=== PATIENT | female | born 1935 | race Caucasian/White ===

== ENCOUNTER 2019-06-08 16:39 | Emergency (ER) | payer MEDICARE, OTHER ==
--- NOTE | 2019-06-08 16:46 | EDM.PDOC ---
ED HPI GENERAL MEDICAL PROBLEM - General Chief Complaint: Lower Extremity Injury/Pain Stated Complaint: fall, knee pain Time Seen by Provider: 06/08/19 16:40 Source of Information: Reports: Patient, Old Records ([facility] chart/EMR) History Limitations: Reports: No Limitations - History of Present Illness INITIAL COMMENTS - FREE TEXT/NARRATIVE: The patient was brought to the emergency room via private automobile by her and daughter for evaluation of bilateral knee pain resulting from a minor fall in front of her grandson's house at about 14:30 hours this afternoon. The patient fell off the last step on the front porch onto a cement driveway resulting in abrasions of both her knees and 7/10 mostly right knee pain with no medications or treatment to this point. She has not injured this knee in the past. The patient denies any chest pain/pressure, heart flutter, dizziness, orthostasis, orthopnea, diaphoresis, paresthesias, recent decreased exercise tolerance, or any other anginal-type symptoms. No recent history of abdominal pain, heartburn, nausea, diarrhea, melena, gross hematochezia, or any food intolerance, including fatty foods, etc.. The patient also denies any recent fever, cough, wheezing, dyspnea, etc.. She denies any head injury, loss of consciousness, change in mental status, neck/back pain, paresthesias, neurological deficits, or other complaints or injuries. Onset: Today, Sudden Onset Date: 06/08/19 Onset Time: 14:30 Duration: Constant Location: Reports: Lower Extremity, Right. Denies: Head, Face, Neck, Chest, Abdomen, Back, Pelvis, Upper Extremity, Left, Upper Extremity, Right, Radiates to Quality: Reports: Same as Previous Episode, Sharp, Throbbing Severity: Moderate Improves with: Reports: Rest Worsens with: Reports: Movement (Weightbearing with no instability) Context: Reports: Trauma (As above) Associated Symptoms: Denies: Confusion, Chest Pain, Cough, Diaphoresis, Fever/ Chills, Headaches, Loss of Appetite, Malaise, Nausea/Vomiting, Seizure, Shortness of Breath, Syncope, Weakness Treatments TRANSPORTATION ANALYST: Reports: Other (see below) (None) Right Knee Pain Score (Numeric/FACES): 7 - Related Data Allergies Allergy/AdvReac Type Severity Reaction Status Date / Time Penicillins Allergy Syncope Verified 06/08/19 16:49 Home Meds: Home Meds Aspirin [Halfprin] 81 mg PO DAILY #0 07/09/14 [Rx] Multivit with Calcium,Iron,Min [Essential Daily] 1 each PO DAILY 07/09/14 [ History] Liberty-3/DHA/Epa/Fish Oil [Fish Oil 1,000 mg Softgel] 1 cap PO DAILY 07/09/14 [ History] Simvastatin 20 mg PO BEDTIME 07/09/14 [History] Glucosamine/Chondroitin/C/Pedro [Glucosamine Chondroitin Caplet] 1 each PO DAILY PRN 11/17/14 [History] Docusate Sodium 100 mg PO DAILY PRN 06/06/15 [History] Non-Formulary Medication [NF Drug] 1 tab PO DAILY 06/08/19 [History] cloNIDine [Catapres] 0.1 mg PO BID 06/08/19 [History] Past Medical History HEENT History: Reports: Allergic Rhinitis, Cataract, Glaucoma, Impaired Vision, Other (See Below). Denies: Hard of Hearing, Macular Degeneration, Otitis Media , Retinal Detachment Other HEENT History: No medications required for her allergic rhinitis. A, resolved with previous laser treatments at time of cataract surgery as below. Patient does wear glasses. Cardiovascular History: Reports: Arrhythmia, Heart Failure, High Cholesterol, Hypertension, Syncope, Other (See Below) Other Cardiovascular History: Borderline incomplete right bundle branch block, PVCs, and PVCs. Syncope in February 2014. Respiratory History: Reports: Bronchitis, Recurrent, COPD, Intubation, Previous , Other (See Below). Denies: Intubation, Difficult, PE, Pneumonia, Recurrent, Pneumothorax, Sleep Apnea, TB Other Respiratory History: Stable pulmonary nodules by CT scan. Gastrointestinal History: Reports: Chronic Constipation, GERD, Hiatal Hernia, Other (See Below). Denies: Celiac Disease, GI Bleed, Hepatitis, Inflammatory Bowel Disease, Irritable Bowel Syndrome, Jaundice, Pancreatitis Other Gastrointestinal History: Large hiatal hernia by CT scan. Genitourinary History: Reports: Urinary Incontinence, Other (See Below). Denies : Acute Renal Failure, Chronic Renal Insuffiency, UTI, Recurrent Other Genitourinary History: Overactive bladder DOT ETCHER APPRENTICE History: Reports: : 6 Para: 5 LMP (Approximate): Other (See Below) Other DOT ETCHER APPRENTICE History: Menopause in her early 40s. Full term without complications during pregnancies or deliveries with exception of one full-term stillborn. Musculoskeletal History: Reports: Arthritis, Back Pain, Chronic, Fracture, Neck Pain, Chronic, Osteoarthritis, Osteoporosis, Other (See Below). Denies: Gout, RA, SLE Other Musculoskeletal History: Right wrist fracture in her 30s. Neurological History: Reports: None Psychiatric History: Reports: None Endocrine/Metabolic History: Reports: Hypokalemia Hematologic History: Reports: None. Denies: Blood Transfusion(s) Immunologic History: Reports: None Oncologic (Cancer) History: Reports: None Dermatologic History: Reports: None - Infectious Disease History Infectious Disease History: Reports: Chicken Pox, Measles, Mumps. Denies: Shingles - Past Surgical History Head Surgeries/Procedures: Reports: None HEENT Surgical History: Reports: Cataract Surgery, Other (See Below) Other HEENT Surgeries/Procedures: Bilateral cataract surgery in 2001 with concomitant laser treatments for her glaucoma. My molar in the with additional multiple teeth extractions and implants. GI Surgical History: Reports: Colonoscopy, EGD, Other (See Below) Other GI Surgeries/Procedures: Last colonoscopy on 11/18/14 with previous colonoscopy in 2004. EGD in 2009. Female Surgical History: Reports: Tubal Ligation, Other (See Below) Other Female Surgeries/Procedures: Tubal ligation at age 46. Endometrial biopsy at about age 41. Musculoskeletal Surgical History: Reports: Shoulder Surgery Other Musculoskeletal Surgeries/Procedures:: Right foot bunionectomy with concomitant fourth and fifth hammertoe revision on 09/10/02. Left rotator cuff repair in 2005. - Past Imaging History Past Imaging History: Reports: Cardiac Echo (07/20/14 with ejection fraction of 6065 percent.), CAT Scan (CT of the brain on 05/17/15 and 03/29/14. CT of the chest with IV contrast on 04/19/16 and 11/12/14. Previous serial CTs of the chest on 06/30/13, 06/25/08, etc.), DEXA Scan (10/11/14), Mammogram (Last on 12/24/18.), MRA (MRA/MRI of the head and neck on 06/06/15.), MRI (Right shoulder on 12/17/16. ), Stress Testing (Negative Cardiolite stress test on 05/26/15 with ejection fraction of 90%. Previous Cardiolite stress test on 03/11/08 with ejection fraction of 61%.) Social & Family History - Tobacco Use Smoking Status *Q: Never Smoker Tobacco Use Within Last Twelve Months: No Used Tobacco, but Quit: No Smoking Cessation Information Provided To Patient: No Second Hand Smoke Exposure: No Second Hand Smoke Education Provided: No - Caffeine Use Caffeine Use: Reports: Coffee (12 cups per day), Tea (Occasional) - Living Situation & Occupation Living situation: Reports: ([birth year], 5 children), with Family Occupation: Retired (From the [employer]) Review of Systems - Review of Systems Review Of Systems: Comprehensive ROS is negative, except as noted in HPI. ED EXAM, GENERAL - Physical Exam Exam: See Below Exam Limited By: No Limitations General Appearance: Alert, WD/WN, Moderate Distress Eye Exam: Bilateral Eye: EOMI, Normal Inspection (No nystagmus. Patient wearing glasses), PERRL Ears: Normal External Exam, Normal Canal, Hearing Grossly Normal, Normal TMs Nose: Normal Inspection, Normal Mucosa, No Blood Throat/Mouth: Normal Inspection, Normal Lips, Normal Teeth, Normal Gums, Normal Oropharynx, Normal Voice, No Airway Compromise. No: Dysphagia, Perioral Cyanosis Head: Atraumatic, Normocephalic. No: Facial Swelling, Facial Tenderness, Sinus Tenderness Neck: Supple, Non-Tender, Full Range of Motion, Carotid Bruit (Mild bilateral carotid bruits). No: Lymphadenopathy (L), Lymphadenopathy (R), Thyromegaly Respiratory/Chest: No Respiratory Distress, Lungs Clear, Normal Breath Sounds, No Accessory Muscle Use, Chest Non-Tender. No: Pleural Rub, Retractions Cardiovascular: Normal Peripheral Pulses, Regular Rate, Rhythm, No Edema, No Gallop, No JVD, No Murmur, No Rub. No: Gallop/S3, Gallop/S4, Friction Rub Peripheral Pulses: 3+: Radial (L), Radial (R), Dorsalis Pedis (L), Dorsalis Pedis (R) GI/Abdominal: Normal Bowel Sounds, Soft, Non-Tender, No Organomegaly, No Distention, No Abnormal Bruit, No Mass, Pelvis Stable. No: Guarding (Female) Exam: Deferred Rectal (Female) Exam: Deferred Back Exam: Normal Inspection, Full Range of Motion. No: CVA Tenderness (L), CVA Tenderness (R), Muscle Spasm Extremities: No Pedal Edema, Leg Pain (Right knee as above), Limited Range of Motion (Mild and right knee secondary to discomfort), Other (Mild bilateral knee abrasions with mild ecchymosis over the patellar regions bilaterally left greater than right. Moderate varicose veins of the lower extremities). No: Non- Tender (Mild localized palpation pain over the right patellar region with no evidence deformity, crepitation, instability, effusion, etc.), Pedal Edema, Joint Swelling, Oscar's Sign Neurological: Alert, Oriented, CN II-XII Intact, Normal Cognition, Normal Gait, Normal Reflexes, No Motor/Sensory Deficits Psychiatric: Normal Affect, Normal Mood Skin Exam: Ecchymosis, Wound/Incision (As above). No: Diaphoretic, Petechiae Lymphatic: No Adenopathy Course - Vital Signs Last Recorded V/S: Last Vital Signs Temp 36.6 C 06/08/19 16:43 Pulse 60 06/08/19 16:43 Resp 17 06/08/19 16:43 BP 195/74 H 06/08/19 18:01 Pulse Ox 100 06/08/19 16:43 Vital Signs - 24 hr 06/08/19 06/08/19 06/08/19 16:43 16:59 18:01 Temperature [ 36.6 C Temporal] Pulse, 60 Peripheral [ Left Pulse Oximetry] Respiratory 17 Rate Blood Pressure 204/96 H 195/74 H [Left Upper Arm ] O2 Sat by Pulse 100 Oximetry - Orders/Labs/Meds Orders: Active Orders 24 hr Category Date Time Status Knee 3V Rt [CR] Stat Exams 06/08/19 16:46 Taken Obtain Past Medical Record [OM.PC] Routine Oth 06/08/19 16:46 Active Labs: None Meds: Medications Discontinued Medications Generic Name Dose Route Start Last Admin Trade Name Freq PRN Reason Stop Dose Admin Neomycin/Polymyxin/Bacitracin 1 each 06/08/19 17:31 06/08/19 17:42 Triple Antibiotic Oint TOP 06/08/19 17:32 1 each ONETIME ONE Administration - Radiology Interpretation Free Text/Narrative:: X-rays of the right knee showed a hairline horizontal nondisplaced fracture of the patella with moderate osteoarthritic changes but no dislocation, etc. Departure - Departure Time of Disposition: 18:20 Disposition: Home, Self-Care 01 Condition: Good Clinical Impression: Multiple abrasions, Peptic reflux disease, Heart disease COPD (chronic obstructive pulmonary disease) Qualifiers: COPD type: emphysema Emphysema type: panlobular Qualified Code(s): J43.1 - Panlobular emphysema Hypertension Qualifiers: Hypertension type: essential hypertension Qualified Code(s): I10 - Essential ( primary) hypertension Osteoarthritis Qualifiers: Osteoarthritis location: multiple joints Osteoarthritis type: primary Qualified Code(s): M89.49 - Other hypertrophic osteoarthropathy, multiple sites Right patella fracture Qualifiers: Encounter type: initial encounter Fracture type: closed Fracture morphology: transverse Fracture alignment: nondisplaced Qualified Code(s): S82.034A - Nondisplaced transverse fracture of right patella, initial encounter for closed fracture - Discharge Information *PRESCRIPTION DRUG MONITORING PROGRAM REVIEWED*: Not Applicable *COPY OF PRESCRIPTION DRUG MONITORING REPORT IN PATIENT BIENVENIDO: Not Applicable Instructions: Abrasion, [id number], Patellar Fracture, Adult Referrals: Margarita Isaac PA [Primary Care Provider] - Forms: ED Department Discharge Additional Instructions: 1. Follow up with your regular provider in 7 days for reevaluation and recommended repeat x-rays of the right knee. Bring these discharge instructions with you to that visit.. 2. Tylenol 650 mg by mouth every 4 hours and/or OTC ibuprofen 2-3 tabs by mouth every 6 hours with food as directed./needed. You may stagger these medications for 48-72 hours only, which essentially means that you are receiving a pain medication about every 2 hours. 3. Antibacterial soap wash/soak with subsequent antibacterial dressing such as Neosporin, etc. as directed 2 times per day until the wound or laceration site completely heals. Keep the area clean and dry with activity restrictions as discussed. Never use hydrogen peroxide for wound care. 4. Limited weightbearing on your right leg with activity restrictions and continuation of previous fall precautions as discussed. 5. BenGay or equivalent, heating pad, and/or ice packs as directed. 6. Use knee brace/sleep on a continuous basis with exception of wound care as above and/or bathing until otherwise directed by your regular provider. Echo therapy from our facility will bring you a more extensive leg/knee immobilizer and a walker tomorrow. 7. Immediately after this visit verify that your cellular telephone's voicemail has been activated and is empty. Also verify that your home telephone 's answering machine is operating properly and has space to receive messages. Note that it is sometimes necessary for us to be able to contact you at a later date to discuss your medical care. 8. Please remember that we are ALWAYS here for you and want to answer any questions you may have. Feel free to call the hospital any time and we call you back PATY. 9. Continue to observe your blood pressures closely through your regular provider. Sepsis Event Note - Focused Exam Vital Signs: Vital Signs Temp Pulse Resp BP Pulse Ox 06/08/19 18:01 195/74 H 06/08/19 16:59 204/96 H 06/08/19 16:43 36.6 C 60 17 100 Date Exam was Performed: 06/08/19 Time Exam was Performed: 20:31 - Problem List & Annotations (1) Right patella fracture SNOMED Code(s): 56501542 Code(s): S82.001A - UNSP FRACTURE OF RIGHT PATELLA, INIT FOR CLOS FX Status : Acute Priority: High Onset Date: 06/08/19 Annotation/Comment:: Patient was placed in a knee sleeve with knee immobilizer not able to be found in this facility this evening. I did leave orders with physical therapy to deliver a proper knee/leg immobilizer and a walker to the patient's home tomorrow. Activity restrictions, etc. were extensively discussed. Close follow-up by regular provider as per discharge instructions. Orthopedic consultation, MRI of the knee, etc. depending on her clinical course. Qualifiers: Encounter type: initial encounter Fracture type: closed Fracture morphology: transverse Fracture alignment: nondisplaced Qualified Code(s): S82.034A - Nondisplaced transverse fracture of right patella, initial encounter for closed fracture (2) Multiple abrasions SNOMED Code(s): 340262109, 107131306 Code(s): T07.XXXA - UNSPECIFIED MULTIPLE INJURIES, INITIAL ENCOUNTER Status : Acute Priority: High Onset Date: 06/08/19 Annotation/Comment:: Minor superficial abrasions of the prepatellar regions bilaterally as above. No evidence of foreign body, need for laceration repair, etc. Wound care instructions given. (3) COPD (chronic obstructive pulmonary disease) SNOMED Code(s): 01326799 Code(s): J44.9 - CHRONIC OBSTRUCTIVE PULMONARY DISEASE, UNSPECIFIED Status : Chronic Priority: Medium Annotation/Comment:: No current bronchitic-type symptoms, fever, etc.. Patient does not require medications for her COPD currently. Consider PFTs in the future as needed. Qualifiers: COPD type: emphysema Emphysema type: panlobular Qualified Code(s): J43.1 - Panlobular emphysema (4) Heart disease SNOMED Code(s): 32388465 Code(s): I51.9 - HEART DISEASE, UNSPECIFIED Status: Chronic Priority: High Annotation/Comment:: No chest pain or anginal-type symptoms. Note previous history of CHF, cardiac arrhythmia, hyperlipidemia, and nonspecific syncopal episode in February 2014. (5) Hypertension SNOMED Code(s): 59041140 Code(s): I10 - ESSENTIAL (PRIMARY) HYPERTENSION Status: Chronic Priority : High Annotation/Comment:: Blood pressure somewhat elevated initially in the emergency room with recent adjustment of patient's medications about one week ago by patient history. Continue close followup with her regular provider as per discharge instructions. Qualifiers: Hypertension type: essential hypertension Qualified Code(s): I10 - Essential (primary) hypertension (6) Osteoarthritis SNOMED Code(s): 593119558 Code(s): M19.90 - UNSPECIFIED OSTEOARTHRITIS, UNSPECIFIED SITE Status: Chronic Priority: Medium Annotation/Comment:: Otherwise stable by history with no history of other injury and only occasional NSAID use. Qualifiers: Osteoarthritis location: multiple joints Osteoarthritis type: primary Qualified Code(s): M89.49 - Other hypertrophic osteoarthropathy, multiple sites (7) Peptic reflux disease SNOMED Code(s): 959915654 Code(s): K21.9 - GASTRO-ESOPHAGEAL REFLUX DISEASE WITHOUT ESOPHAGITIS Status: Chronic Priority: Medium Annotation/Comment:: Stable by patient history - Problem List Review Problem List Initiated/Reviewed/Updated: Yes - My Orders Last 24 Hours: My Active Orders 06/08/19 16:46 Knee 3V Rt [CR] Stat Obtain Past Medical Record [OM.PC] Routine - Assessment/Plan Last 24 Hours: My Active Orders 06/08/19 16:46 Knee 3V Rt [CR] Stat Obtain Past Medical Record [OM.PC] Routine Assessment:: As above Plan: As above. Extensive precautions were given to the patient, who is in agreement with the treatment plan. See Patient Instructions for further treatment and plan.
[2019-06-08 16:48] VITALS: PULSE 60
[2019-06-08] MEDS: Bacitracin/Neomycin/Polymyxin B Oint 0.9 GM U/D Packet TOP ONE (17:42)
[2019-06-08 18:01] VITALS: BP 195/74
== END 2019-06-08 18:20 | disposition home or self-care (01) ==
LOC: LL.ED 16:39
DX: S82.034A Nondisplaced transverse fracture of right patella, initial encounter for closed fracture (principal); M89.49 Other hypertrophic osteoarthropathy, multiple sites; J43.1 Panlobular emphysema; K27.9 Peptic ulcer, site unspecified, unspecified as acute or chronic, without hemorrhage or perforation; Z88.0 Allergy status to penicillin; Z79.82 Long term (current) use of aspirin; I11.0 Hypertensive heart disease with heart failure; I50.9 Heart failure, unspecified; E78.00 Pure hypercholesterolemia, unspecified; J44.9 Chronic obstructive pulmonary disease, unspecified; M19.90 Unspecified osteoarthritis, unspecified site; W19.XXXA Unspecified fall, initial encounter; Y92.009 Unspecified place in unspecified non-institutional (private) residence as the place of occurrence of the external cause
CPT/HCPCS: 73562-RT; 99283

== ENCOUNTER 2020-05-08 10:03 | Inpatient (IN) | payer MEDICARE, OTHER ==
--- NOTE | 2020-05-08 10:19 | EDM.PDOC ---
ED HPI GENERAL MEDICAL PROBLEM - General Chief Complaint: General Stated Complaint: Fever, Weakness, Shaking Time Seen by Provider: 05/08/20 10:05 Source of Information: Reports: Patient, Family History Limitations: Reports: No Limitations - History of Present Illness INITIAL COMMENTS - FREE TEXT/NARRATIVE: She is brought to the ED by family for evaluation of generalized weakness and shaking gradually worsening for the past two days. [place] warm at home. Nonproductive cough today. Mild nasal congestion and drainage, but she feels this is at her baseline. No nausea, vomiting or diarrhea. No dysuria, urgency or frequency. History of UTIs in the past. History of HTN and hyperlipidemia. No known exposure. She received Shingrix shot three days ago. - Related Data Allergies Allergy/AdvReac Type Severity Reaction Status Date / Time Penicillins Allergy Syncope Verified 05/08/20 10:04 Home Meds: Home Meds Aspirin [Halfprin] 81 mg PO DAILY #0 07/09/14 [Rx] Multivit with Calcium,Iron,Min [Essential Daily] 1 each PO DAILY 07/09/14 [History] [place]-3/DHA/Epa/Fish Oil [Fish Oil 1,000 mg Softgel] 1 cap PO DAILY 07/09/14 [History] Simvastatin 20 mg PO BEDTIME 07/09/14 [History] Glucosamine/Chondroitin/C/Pedro [Glucosamine Chondroitin Caplet] 1 each PO DAILY PRN 11/17/14 [History] Docusate Sodium 100 mg PO DAILY PRN 06/06/15 [History] Non-Formulary Medication [NF Drug] 1 tab PO DAILY 06/08/19 [History] cloNIDine [Catapres] 0.1 mg PO BID 06/08/19 [History] Past Medical History HEENT History: Reports: Allergic Rhinitis, Cataract, Glaucoma, Impaired Vision, Other (See Below) Other HEENT History: No medications required for her allergic rhinitis. A, resolved with previous laser treatments at time of cataract surgery as below. Patient does wear glasses. Cardiovascular History: Reports: Arrhythmia, Heart Failure, High Cholesterol, Hypertension, Syncope, Other (See Below) Other Cardiovascular History: Borderline incomplete right bundle branch block, PVCs, and PVCs. Syncope in February 2014. Respiratory History: Reports: Bronchitis, Recurrent, COPD, Intubation, Previous, Other (See Below) Other Respiratory History: Stable pulmonary nodules by CT scan. Gastrointestinal History: Reports: Chronic Constipation, GERD, Hiatal Hernia, Other (See Below) Other Gastrointestinal History: Large hiatal hernia by CT scan. Genitourinary History: Reports: Urinary Incontinence, Other (See Below) Other Genitourinary History: Overactive bladder RIPPLER History: Reports: Other RIPPLER History: Menopause in her early 40s. Full term without complications during pregnancies or deliveries with exception of one full-term stillborn. Musculoskeletal History: Reports: Arthritis, Back Pain, Chronic, Fracture, Neck Pain, Chronic, Osteoarthritis, Osteoporosis, Other (See Below) Other Musculoskeletal History: Right wrist fracture in her 30s. Neurological History: Reports: None Psychiatric History: Reports: None Endocrine/Metabolic History: Reports: Hypokalemia Hematologic History: Reports: None Immunologic History: Reports: None Oncologic (Cancer) History: Reports: None Dermatologic History: Reports: None - Infectious Disease History Infectious Disease History: Reports: Chicken Pox, Measles, Mumps. Denies: Shingles - Past Surgical History Head Surgeries/Procedures: Reports: None HEENT Surgical History: Reports: Cataract Surgery, Other (See Below) Other HEENT Surgeries/Procedures: Bilateral cataract surgery in 2001 with concomitant laser treatments for her glaucoma. My molar in the with additional multiple teeth extractions and implants. GI Surgical History: Reports: Colonoscopy, EGD, Other (See Below) Other GI Surgeries/Procedures: Last colonoscopy on 11/18/14 with previous colonoscopy in 2004. EGD in 2009. Female Surgical History: Reports: Tubal Ligation, Other (See Below) Other Female Surgeries/Procedures: Tubal ligation at age 46. Endometrial biopsy at about age 41. Musculoskeletal Surgical History: Reports: Shoulder Surgery Other Musculoskeletal Surgeries/Procedures:: Right foot bunionectomy with concomitant fourth and fifth hammertoe revision on 09/10/02. Left rotator cuff repair in 2005. - Past Imaging History Past Imaging History: Reports: Cardiac Echo (07/20/14 with ejection fraction of 6065 percent.), CAT Scan (CT of the brain on 05/17/15 and 03/29/14. CT of the chest with IV contrast on 04/19/16 and 11/12/14. Previous serial CTs of the chest on 06/30/13, 06/25/08, etc.), DEXA Scan (10/11/14), Mammogram (Last on 12/24/18.), MRA (MRA/MRI of the head and neck on 06/06/15.), MRI (Right shoulder on 12/17/16.), Stress Testing (Negative Cardiolite stress test on 05/26/15 with ejection fraction of 90%. Previous Cardiolite stress test on 03/11/08 with ejection fraction of 61%.) Social & Family History - Caffeine Use Caffeine Use: Reports: Coffee (12 cups per day), Tea (Occasional) - Living Situation & Occupation Living situation: Reports: ([birth year], 5 children), with Family Occupation: Retired (From the [employer]) ED ROS GENERAL - Review of Systems Review Of Systems: See Below Constitutional: Reports: Fever HEENT: Reports: Rhinitis. Denies: Nose Pain, Throat Pain Respiratory: Reports: Cough. Denies: Shortness of Breath, Wheezing, Sputum Cardiovascular: Denies: Chest Pain, Lightheadedness, Palpitations GI/Abdominal: Denies: Abdominal Pain, Nausea, Vomiting : Denies: Dysuria, Frequency, Urgency Skin: Reports: No Symptoms Neurological: Reports: Confusion. Denies: Dizziness Psychiatric: Denies: Agitation, Anxiety, Confusion ED EXAM, GENERAL - Physical Exam Exam: See Below Exam Limited By: No Limitations General Appearance: Alert, WD/WN, No Apparent Distress Ears: Normal External Exam, Normal Canal, Hearing Grossly Normal, Normal TMs Nose: Normal Inspection, Normal Mucosa, No Blood Throat/Mouth: Normal Inspection, Normal Lips, Normal Gums, Normal Oropharynx Head: Atraumatic, Normocephalic Neck: Normal Inspection, Supple, Non-Tender Respiratory/Chest: No Respiratory Distress, Lungs Clear, Normal Breath Sounds Cardiovascular: Regular Rate, Rhythm, No Murmur GI/Abdominal: Normal Bowel Sounds, Soft, Non-Tender Psychiatric: Normal Affect, Normal Mood Skin Exam: Warm, Dry Course - Vital Signs Text/Narrative:: Patient appeared very comfortable throughout the ED visit. Significantly elevated WBC count and positive UA consistent with pyelonephritis and possible urosepsis. Woll admit to the hospital and start IV Rocephin. Last Recorded V/S: Last Vital Signs Temp 38.6 C H 05/08/20 10:07 Pulse 102 H 05/08/20 10:07 Resp 19 05/08/20 10:07 BP 147/83 H 05/08/20 10:07 Pulse Ox 96 05/08/20 10:07 - Orders/Labs/Meds Orders: Active Orders 24 hr Category Date Time Status Chest 2V [CR] Stat Exams 05/08/20 10:12 Taken CULTURE BLOOD [BC] Stat Lab 05/08/20 10:20 Received CULTURE BLOOD [BC] Stat Lab 05/08/20 10:28 Received CULTURE URINE [RM] Stat Lab 05/08/20 10:40 Received NS + KCl 20mEq/L [Normal Saline with 20 mEq KCl] 1,000 Med 05/08/20 11:00 Active ml IV ASDIRECTED cefTRIAXone [Rocephin] 1 gm Med 05/08/20 10:51 Active Sodium Chloride 0.9% [Normal Saline] 100 ml IV ONETIME Blood Culture x2 Reflex Set [OM.PC] Stat Oth 05/08/20 10:12 Ordered Medication Orders Ceftriaxone Sodium 1 gm/ (Sodium Chloride) 100 mls @ 200 mls/hr IV ONETIME ONE Stop: 05/08/20 11:20 Potassium Chloride/Sodium Chloride (Normal Saline With 20 Meq Kcl) 1,000 mls @ 100 mls/hr IV ASDIRECTED [facility] Labs: Laboratory Tests 05/08/20 05/08/20 05/08/20 Range/Units 10:07 10:20 10:20 WBC 17.5 H (4.0-10.2) K/uL RBC 4.38 (3.77-5.09) M/uL Hgb 12.8 (11.7-15.5) g/dL Hct 37.1 (34.0-46.0) % MCV 84.7 (84.0-98.0) fL MCH 29.2 (28.2-33.3) pg MCHC 34.5 (31.7-36.0) g/dL RDW 13.3 (11.2-14.1) % Plt Count 223 D (150-350) K/uL Neut % (Auto) 89.1 H (45.0-80.0) % Lymph % (Auto) 4.6 L (10.0-50.0) % [place] % (Auto) 5.9 (2.0-14.0) % Eos % (Auto) 0.2 (0.0-5.0) % Baso % (Auto) 0.2 (0.0-2.0) % Neut # (Auto) 15.63 H (1.40-7.00) K/uL Lymph # (Auto) 0.80 (0.50-3.50) K/uL [place] # (Auto) 1.03 H (0.00-1.00) K/uL Eos # (Auto) 0.03 (0.00-0.50) K/uL Baso # (Auto) 0.03 (0.00-0.20) K/uL Sodium 125 L D (136-145) mmol/L Potassium 3.2 L (3.5-5.1) mmol/L Chloride 90 L (98-107) mmol/L Carbon Dioxide 25.6 (21.0-32.0) mmol/L BUN 17 (7-18) mg/dL Creatinine 0.78 (0.51-1.17) mg/dL Est Cr Clr Drug Dosing TNP Estimated GFR (MDRD) > 60 mL/min Glucose 154 H (70-99) mg/dL Lactic Acid (0.4-2.0) mmol/L Calcium 8.4 L (8.5-10.1) mg/dL Specimen Type Urine Color Urine Appearance Urine pH (5.0-9.0) Ur Specific [place] (1.005-1.030) Urine Protein (NEGATIVE) mg/dL Urine Glucose (UA) (NEGATIVE) mg/dL Urine Ketones (NEGATIVE) mg/dL Urine Occult Blood (NEGATIVE) Urine Nitrite (NEGATIVE) Urine Bilirubin (NEGATIVE) Urine Urobilinogen (0.2-1.0) E.U./dL Ur Leukocyte Esterase (NEGATIVE) Urine RBC /HPF Urine WBC /HPF Ur Epithelial Cells /LPF Urine Bacteria (NONE TO FEW) /HPF SARS-CoV-2 RNA (MYRIAM) Negative (NEGATIVE) 05/08/20 05/08/20 Range/Units 10:20 10:40 WBC (4.0-10.2) K/uL RBC (3.77-5.09) M/uL Hgb (11.7-15.5) g/dL Hct (34.0-46.0) % MCV (84.0-98.0) fL MCH (28.2-33.3) pg MCHC (31.7-36.0) g/dL RDW (11.2-14.1) % Plt Count (150-350) K/uL Neut % (Auto) (45.0-80.0) % Lymph % (Auto) (10.0-50.0) % [place] % (Auto) (2.0-14.0) % Eos % (Auto) (0.0-5.0) % Baso % (Auto) (0.0-2.0) % Neut # (Auto) (1.40-7.00) K/uL Lymph # (Auto) (0.50-3.50) K/uL [place] # (Auto) (0.00-1.00) K/uL Eos # (Auto) (0.00-0.50) K/uL Baso # (Auto) (0.00-0.20) K/uL Sodium (136-145) mmol/L Potassium (3.5-5.1) mmol/L Chloride (98-107) mmol/L Carbon Dioxide (21.0-32.0) mmol/L BUN (7-18) mg/dL Creatinine (0.51-1.17) mg/dL Est Cr Clr Drug Dosing Estimated GFR (MDRD) mL/min Glucose (70-99) mg/dL Lactic Acid 1.1 (0.4-2.0) mmol/L Calcium (8.5-10.1) mg/dL Specimen Type Urinblad Urine Color Dark yellow Urine Appearance Cloudy Urine pH 5.5 (5.0-9.0) Ur Specific [place] 1.020 (1.005-1.030) Urine Protein 100 H (NEGATIVE) mg/dL Urine Glucose (UA) Negative (NEGATIVE) mg/dL Urine Ketones Negative (NEGATIVE) mg/dL Urine Occult Blood Moderate H (NEGATIVE) Urine Nitrite Positive H (NEGATIVE) Urine Bilirubin Small H (NEGATIVE) Urine Urobilinogen 1.0 (0.2-1.0) E.U./dL Ur Leukocyte Esterase Small H (NEGATIVE) Urine RBC 0-5 /HPF Urine WBC 30-40 H /HPF Ur Epithelial Cells Few /LPF Urine Bacteria Many H (NONE TO FEW) /HPF SARS-CoV-2 RNA (MYRIAM) (NEGATIVE) Meds: Medications Generic Name Dose Route Start Last Admin Trade Name Freq PRN Reason Stop Dose Admin Ceftriaxone Sodium 1 gm/ 100 mls @ 200 mls/hr 05/08/20 10:51 Sodium Chloride IV 05/08/20 11:20 ONETIME ONE Potassium Chloride/Sodium Chloride 1,000 mls @ 100 mls/hr 05/08/20 11:00 Normal Saline With 20 Meq Kcl IV ASDIRECTED DENISSE - Radiology Interpretation Free Text/Narrative:: Two views of the chest indicate normal cardiac silhouette, no ifiltrate, no free air. Departure - Departure Time of Disposition: 11:11 Disposition: Admitted As Inpatient 67 Condition: Good Clinical Impression: Pyelonephritis, Hyponatremia, Hypokalemia Hypertension Qualifiers: Hypertension type: essential hypertension Qualified Code(s): I10 - Essential (primary) hypertension - Discharge Information *PRESCRIPTION DRUG MONITORING PROGRAM REVIEWED*: Not Applicable *COPY OF PRESCRIPTION DRUG MONITORING REPORT IN PATIENT BIENVENIDO: Not Applicable Referrals: Margarita Isaac PA [Primary Care Provider] - Forms: ED Department Discharge Care Plan Goals: Admit to inpatient status for IV antibiotics and sodium and potassium replacement. Resume usual home medications. Sepsis Event Note (ED) - Evaluation Sepsis Screening Result: Possible Sepsis Risk - Focused Exam Vital Signs: Vital Signs Temp Pulse Resp BP Pulse Ox 05/08/20 10:07 38.6 C H 102 H 19 147/83 H 96 - Problem List & Annotations (1) Hypertension SNOMED Code(s): 26004482 Code(s): I10 - ESSENTIAL (PRIMARY) HYPERTENSION Status: Chronic Priority: High Current Visit: Yes Annotation/Comment:: Blood pressure somewhat elevated initially in the emergency room with recent adjustment of patient's medications about one week ago by patient history. Continue close followup with her regular provider as per discharge instructions. Qualifiers: Hypertension type: essential hypertension Qualified Code(s): I10 - Essential (primary) hypertension (2) Hypokalemia SNOMED Code(s): 45563775 Code(s): E87.6 - HYPOKALEMIA Status: Acute Current Visit: Yes (3) Hyponatremia SNOMED Code(s): 96784753 Code(s): E87.1 - HYPO-OSMOLALITY AND HYPONATREMIA Status: Acute Current Visit: Yes - My Orders Last 24 Hours: My Active Orders 05/08/20 10:12 Chest 2V [CR] Stat Blood Culture x2 Reflex Set [OM.PC] Stat 05/08/20 10:20 CULTURE BLOOD [BC] Stat 05/08/20 10:28 CULTURE BLOOD [BC] Stat 05/08/20 10:40 CULTURE URINE [RM] Stat 05/08/20 10:51 cefTRIAXone [Rocephin] 1 gm Sodium Chloride 0.9% [Normal Saline] 100 ml IV ONETIME 05/08/20 11:00 NS + KCl 20mEq/L [Normal Saline with 20 mEq KCl] 1,000 ml IV ASDIRECTED - Assessment/Plan Last 24 Hours: My Active Orders 05/08/20 10:12 Chest 2V [CR] Stat Blood Culture x2 Reflex Set [OM.PC] Stat 05/08/20 10:20 CULTURE BLOOD [BC] Stat 05/08/20 10:28 CULTURE BLOOD [BC] Stat 05/08/20 10:40 CULTURE URINE [RM] Stat 05/08/20 10:51 cefTRIAXone [Rocephin] 1 gm Sodium Chloride 0.9% [Normal Saline] 100 ml IV ONETIME 05/08/20 11:00 NS + KCl 20mEq/L [Normal Saline with 20 mEq KCl] 1,000 ml IV ASDIRECTED Plan: Admit for IV antibiotics and sodium and potassium replacement.
[2020-05-08 10:44] LABS: CHLORIDE,CL 90 mmol/L (98-107); SODIUM,NA 125 mmol/L (136-145)
[2020-05-08] MEDS ORDERED: cefTRIAXone 1 GM in Sodium Chloride 0.9% 100 ML IV ONE (10:51)
[2020-05-08] MEDS ORDERED: Bisacodyl 10 MG Supp RECTAL PRN (11:17)
[2020-05-08] MEDS ORDERED: Docusate Sodium 100 MG Cap PO PRN (11:20)
[2020-05-08] MEDS: NS + KCl 20mEq/L 1,000 ML IV SCH ×2 (11:47→21:47)
[2020-05-08] MEDS ORDERED: Sodium Chloride 0.9% 10 ML Syringe FLUSH PRN (12:00)
[2020-05-08] MEDS: Acetaminophen 325 MG Tab PO PRN (18:15)
[2020-05-08] MEDS: Losartan 50 MG Tab PO SCH (19:34)
[2020-05-08] MEDS: Simvastatin 20 MG Tab PO SCH (19:34)
[2020-05-08] MEDS: Metoprolol Succinate 50 MG Tab.ER PO SCH (19:35)
[2020-05-08] MEDS: cloNIDine 0.1 MG Tab PO SCH (19:35)
[2020-05-09] MEDS: NS + KCl 20mEq/L 1,000 ML IV SCH (07:52)
[2020-05-09] MEDS: Beta-Carotene (Vitamin A) w/Vitamin C & E plus Minerals Tab PO SCH (08:10)
[2020-05-09] MEDS: Aspirin 81 MG Tab.EC PO SCH (08:10)
[2020-05-09] MEDS: Losartan 50 MG Tab PO SCH ×2 (08:11→19:45)
[2020-05-09] MEDS: Metoprolol Succinate 50 MG Tab.ER PO SCH ×2 (08:11→19:43)
[2020-05-09] MEDS: cloNIDine 0.1 MG Tab PO SCH ×2 (08:12→19:44)
[2020-05-09] MEDS: Hydrochlorothiazide 25 MG Tab PO SCH (08:14)
[2020-05-09] MEDS ORDERED: NS + KCl 20mEq/L 1,000 ML IV SCH (08:20)
[2020-05-09] MEDS: cefTRIAXone 1 GM in Sodium Chloride 0.9% 100 ML IV SCH ×2 (09:11→19:47)
--- NOTE | 2020-05-09 09:28 | PCM.PN ---
- General Info Date of Service: 05/09/20 Admission Dx/Problem (Free Text): 1. Pyelonephritis 2. UTI Functional Status: Reports: Pain Controlled, Tolerating Diet, Ambulating, Urinating, Incentive Spirometry. Denies: New Symptoms Pain Score: 0 - Review of Systems General: Reports: Fever (Maximum temperature of 37.7 degrees with persistent fever of 37.3 degrees this morning). Denies: Weakness, Fatigue, Chills, Night Sweats, Appetite (Better with patient eating breakfast this morning without problems) HEENT: Reports: Glasses. Denies: Dysphasia, Ear Pain, Eye Pain, Post Nasal Drip, Sinus Congestion, Sore Throat, Rhinitis, Visual Changes Pulmonary: Reports: No Symptoms. Denies: Shortness of Breath, Pleuritic Chest Pain, Sputum, Hemoptysis, Wheezing Cardiovascular: Reports: No Symptoms. Denies: Chest Pain, Palpitations, Dyspnea on Exertion, Orthopnea, PND, Edema, Lightheadedness Gastrointestinal: Reports: No Symptoms, Other (Excellent normal bowel movement this morning). Denies: Abdominal Pain, Constipation, Decreased Appetite, Diarrhea (Tolerating Rocephin well), Difficulty Swallowing, Flatus, Hematochezia, Melena, Nausea, Vomiting Genitourinary: Reports: No Symptoms. Denies: Dysuria (Resolved), Frequency, Burning, Pain, Urgency, Incontinence, Hematuria, Retention, Flank Pain Musculoskeletal: Reports: No Symptoms. Denies: Neck Pain, Shoulder Pain, Arm Pain, Back Pain, Leg Pain Skin: Reports: No Symptoms. Denies: Bruising, Rash Neurological: Reports: No Symptoms. Denies: Confusion, Numbness, Paresthesia, Tingling, Difficulty Walking, Weakness Psychiatric: Reports: No Symptoms. Denies: Confusion, Depression, Agitation, Cravings - Patient Data Vitals - Most Recent: Last Vital Signs Temp 37.3 C 05/09/20 08:00 Pulse 91 05/09/20 08:11 Resp 17 05/09/20 08:00 BP 166/94 H 05/09/20 08:12 Pulse Ox 95 05/09/20 08:00 Vital Signs - 24 hr 05/08/20 05/08/20 05/08/20 10:07 12:00 15:42 Temperature [ 38.6 C H 36.5 C 36.8 C Temporal] Pulse, Peripheral Pulse, 102 H 90 89 Peripheral [ Pulse Oximetry] Respiratory 19 16 18 Rate Blood Pressure Blood Pressure 147/83 H 122/56 L 153/90 H [Right Upper Arm] O2 Sat by Pulse 96 96 94 L Oximetry 05/08/20 05/08/20 05/09/20 19:34 19:35 00:00 Temperature [ 37.7 C 36.2 C Temporal] Pulse, 94 Peripheral Pulse, 100 84 Peripheral [ Pulse Oximetry] Respiratory 16 16 Rate Blood Pressure 127/52 L 127/52 L Blood Pressure 127/52 L 101/59 L [Right Upper Arm] O2 Sat by Pulse 94 L 95 Oximetry 05/09/20 05/09/20 05/09/20 04:00 08:00 08:11 Temperature [ 36.2 C 37.3 C Temporal] Pulse, 91 Peripheral Pulse, 82 91 Peripheral [ Pulse Oximetry] Respiratory 16 17 Rate Blood Pressure 166/94 H Blood Pressure 155/92 H 166/94 H [Right Upper Arm] O2 Sat by Pulse 95 95 Oximetry 05/09/20 08:12 Temperature [ Temporal] Pulse, Peripheral Pulse, Peripheral [ Pulse Oximetry] Respiratory Rate Blood Pressure 166/94 H Blood Pressure [Right Upper Arm] O2 Sat by Pulse Oximetry Weight - Most Recent: 61.462 kg I&O - Last 24 Hours: Intake & Output 05/08/20 05/09/20 05/09/20 22:59 06:59 14:59 Intake Total 320 1000 480 Output Total 600 200 Balance -280 1000 280 Imaging Impressions - Last 24 Hours: [employer]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 Lab Results Last 24 Hours: Laboratory Results - last 24 hr 05/08/20 05/08/20 05/08/20 Range/Units 10:07 10:20 10:20 WBC 17.5 H (4.0-10.2) K/uL RBC 4.38 (3.77-5.09) M/uL Hgb 12.8 (11.7-15.5) g/dL Hct 37.1 (34.0-46.0) % MCV 84.7 (84.0-98.0) fL MCH 29.2 (28.2-33.3) pg MCHC 34.5 (31.7-36.0) g/dL RDW 13.3 (11.2-14.1) % Plt Count 223 D (150-350) K/uL Neut % (Auto) 89.1 H (45.0-80.0) % Lymph % (Auto) 4.6 L (10.0-50.0) % [place] % (Auto) 5.9 (2.0-14.0) % Eos % (Auto) 0.2 (0.0-5.0) % Baso % (Auto) 0.2 (0.0-2.0) % Neut # (Auto) 15.63 H (1.40-7.00) K/uL Lymph # (Auto) 0.80 (0.50-3.50) K/uL [place] # (Auto) 1.03 H (0.00-1.00) K/uL Eos # (Auto) 0.03 (0.00-0.50) K/uL Baso # (Auto) 0.03 (0.00-0.20) K/uL Sodium 125 L D (136-145) mmol/L Potassium 3.2 L (3.5-5.1) mmol/L Chloride 90 L (98-107) mmol/L Carbon Dioxide 25.6 (21.0-32.0) mmol/L BUN 17 (7-18) mg/dL Creatinine 0.78 (0.51-1.17) mg/dL Est Cr Clr Drug Dosing TNP Estimated GFR (MDRD) > 60 mL/min Glucose 154 H (70-99) mg/dL Lactic Acid (0.4-2.0) mmol/L Calcium 8.4 L (8.5-10.1) mg/dL Specimen Type Urine Color Urine Appearance Urine pH (5.0-9.0) Ur Specific [place] (1.005-1.030) Urine Protein (NEGATIVE) mg/dL Urine Glucose (UA) (NEGATIVE) mg/dL Urine Ketones (NEGATIVE) mg/dL Urine Occult Blood (NEGATIVE) Urine Nitrite (NEGATIVE) Urine Bilirubin (NEGATIVE) Urine Urobilinogen (0.2-1.0) E.U./dL Ur Leukocyte Esterase (NEGATIVE) Urine RBC /HPF Urine WBC /HPF Ur Epithelial Cells /LPF Urine Bacteria (NONE TO FEW) /HPF SARS-CoV-2 RNA (MYRIAM) Negative (NEGATIVE) 03/14/21 03/14/21 Range/Units 10:20 10:40 WBC (4.0-10.2) K/uL RBC (3.77-5.09) M/uL Hgb (11.7-15.5) g/dL Hct (34.0-46.0) % MCV (84.0-98.0) fL MCH (28.2-33.3) pg MCHC (31.7-36.0) g/dL RDW (11.2-14.1) % Plt Count (150-350) K/uL Neut % (Auto) (45.0-80.0) % Lymph % (Auto) (10.0-50.0) % [place] % (Auto) (2.0-14.0) % Eos % (Auto) (0.0-5.0) % Baso % (Auto) (0.0-2.0) % Neut # (Auto) (1.40-7.00) K/uL Lymph # (Auto) (0.50-3.50) K/uL [place] # (Auto) (0.00-1.00) K/uL Eos # (Auto) (0.00-0.50) K/uL Baso # (Auto) (0.00-0.20) K/uL Sodium (136-145) mmol/L Potassium (3.5-5.1) mmol/L Chloride (98-107) mmol/L Carbon Dioxide (21.0-32.0) mmol/L BUN (7-18) mg/dL Creatinine (0.51-1.17) mg/dL Est Cr Clr Drug Dosing Estimated GFR (MDRD) mL/min Glucose (70-99) mg/dL Lactic Acid 1.1 (0.4-2.0) mmol/L Calcium (8.5-10.1) mg/dL Specimen Type Urinblad Urine Color Dark yellow Urine Appearance Cloudy Urine pH 5.5 (5.0-9.0) Ur Specific [place] 1.020 (1.005-1.030) Urine Protein 100 H (NEGATIVE) mg/dL Urine Glucose (UA) Negative (NEGATIVE) mg/dL Urine Ketones Negative (NEGATIVE) mg/dL Urine Occult Blood Moderate H (NEGATIVE) Urine Nitrite Positive H (NEGATIVE) Urine Bilirubin Small H (NEGATIVE) Urine Urobilinogen 1.0 (0.2-1.0) E.U./dL Ur Leukocyte Esterase Small H (NEGATIVE) Urine RBC 0-5 /HPF Urine WBC 30-40 H /HPF Ur Epithelial Cells Few /LPF Urine Bacteria Many H (NONE TO FEW) /HPF SARS-CoV-2 RNA (MYRIAM) (NEGATIVE) Blood cultures x2 are pending Urine culture and sensitivity is pending Jameel Results Last 24 Hours: Microbiology 05/08/20 10:40 Urine Culture - Preliminary Urine, Voided Gram Negative Rods Med Orders - Current: Current Medications Acetaminophen (Acetaminophen 325 Mg Tab) 650 mg PO Q4H PRN PRN Reason: analgesia/fever Last Admin: 05/08/20 18:15 Dose: 650 mg Documented by: Aspirin (Aspirin 81 Mg Tab.Ec) 81 mg PO DAILY [facility] Last Admin: 05/09/20 08:10 Dose: 81 mg Documented by: Bisacodyl (Bisacodyl 10 Mg Supp) 10 mg RECTAL DAILY PRN PRN Reason: Constipation Clonidine HCl (Clonidine 0.1 Mg Tab) 0.1 mg PO Q12HR [facility] Last Admin: 05/09/20 08:12 Dose: 0.1 mg Documented by: Docusate Sodium (Docusate Sodium 100 Mg Cap) 100 mg PO DAILY PRN PRN Reason: Constipation Hydrochlorothiazide (Hydrochlorothiazide 25 Mg Tab) 50 mg PO DAILY [facility] Last Admin: 05/09/20 08:14 Dose: 50 mg Documented by: Ceftriaxone Sodium 1 gm/ (Sodium Chloride) 100 mls @ 200 mls/hr IV Q12H [facility] Last Admin: 05/09/20 09:11 Dose: 200 mls/hr Documented by: Potassium Chloride/Sodium Chloride (Normal Saline With 20 Meq Kcl) 1,000 mls @ 80 mls/hr IV ASDIRECTED [facility] Losartan Potassium (Losartan 50 Mg Tab) 50 mg PO Q12HR [facility] Last Admin: 05/09/20 08:11 Dose: 50 mg Documented by: Metoprolol Succinate (Metoprolol Succinate 50 Mg Tab.Er) 100 mg PO BEDTIME [facility] Last Admin: 05/08/20 19:35 Dose: 100 mg Documented by: Metoprolol Succinate (Metoprolol Succinate 50 Mg Tab.Er) 50 mg PO DAILY [facility] Last Admin: 05/09/20 08:11 Dose: 50 mg Documented by: Multivitamins/Minerals (Beta-Carotene (Vitamin A) W/Vitamin C & E Plus Minerals Tab) 1 tab PO DAILY [facility] Last Admin: 05/09/20 08:10 Dose: 1 tab Documented by: Simvastatin (Simvastatin 20 Mg Tab) 20 mg PO BEDTIME [facility] Last Admin: 05/08/20 19:34 Dose: 20 mg Documented by: Discontinued Medications Ceftriaxone Sodium 1 gm/ (Sodium Chloride) 100 mls @ 200 mls/hr IV ONETIME ONE Stop: 05/08/20 11:20 Last Admin: 05/08/20 11:47 Dose: 200 mls/hr Documented by: Potassium Chloride/Sodium Chloride (Normal Saline With 20 Meq Kcl) 1,000 mls @ 100 mls/hr IV ASDIRECTED [facility] Last Admin: 05/09/20 07:52 Dose: 100 mls/hr Documented by: Ceftriaxone Sodium 1 gm/ (Sodium Chloride) 100 mls @ 200 mls/hr IV Q24H DENISSE - Exam Quality Assessment: DVT Prophylaxis. No: Supplemental Oxygen, Central Line/PICC, Urine Catheter, Skin Breakdown General: Alert, Cooperative, No Acute Distress HEENT: Pupils Equal, Pupils Reactive, EOMI, Mucous Membr. Moist/[place], Other (Patient is wearing glasses). No: Scleral Icterus Neck: Supple, Trachea Midline, No JVD, No Thyromegaly. No: Lymphadenopathy Lungs: Clear to Auscultation, Normal Respiratory Effort. No: Rub Cardiovascular: Regular Rate, No Murmurs, Other (Occasional extrasystoles with history of PVCs). No: Gallops GI/Abdominal Exam: Normal Bowel Sounds, Soft, Non-Tender, No Organomegaly, No Distention, No Abnormal Bruit, No Mass, Pelvis Stable. No: Guarding (Female) Exam: Deferred Back Exam: Normal Inspection, Full Range of Motion. No: CVA Tenderness (L), CVA Tenderness (R), Muscle Spasm, Paraspinal Tenderness, Vertebral Tenderness Extremities: Normal Inspection, Normal Range of Motion, Non-Tender, No Pedal Edema, Normal Capillary Refill. No: Oscar's Sign Peripheral Pulses: 2+: Radial (L), Radial (R), Dorsalis Pedis (L), Dorsalis Pedis (R) Skin: Warm, Dry, Intact Neurological: No New Focal Deficit, Other (No clinical orthostasis) Psy/Mental Status: Alert, Normal Affect, Normal Mood. No: Agitated, Hallucinations, Withdrawal Symptoms - Patient Data Lab Results Last 24 hrs: Laboratory Results - last 24 hr 05/08/20 05/08/20 05/08/20 Range/Units 10:07 10:20 10:20 WBC 17.5 H (4.0-10.2) K/uL RBC 4.38 (3.77-5.09) M/uL Hgb 12.8 (11.7-15.5) g/dL Hct 37.1 (34.0-46.0) % MCV 84.7 (84.0-98.0) fL MCH 29.2 (28.2-33.3) pg MCHC 34.5 (31.7-36.0) g/dL RDW 13.3 (11.2-14.1) % Plt Count 223 D (150-350) K/uL Neut % (Auto) 89.1 H (45.0-80.0) % Lymph % (Auto) 4.6 L (10.0-50.0) % [place] % (Auto) 5.9 (2.0-14.0) % Eos % (Auto) 0.2 (0.0-5.0) % Baso % (Auto) 0.2 (0.0-2.0) % Neut # (Auto) 15.63 H (1.40-7.00) K/uL Lymph # (Auto) 0.80 (0.50-3.50) K/uL [place] # (Auto) 1.03 H (0.00-1.00) K/uL Eos # (Auto) 0.03 (0.00-0.50) K/uL Baso # (Auto) 0.03 (0.00-0.20) K/uL Sodium 125 L D (136-145) mmol/L Potassium 3.2 L (3.5-5.1) mmol/L Chloride 90 L (98-107) mmol/L Carbon Dioxide 25.6 (21.0-32.0) mmol/L BUN 17 (7-18) mg/dL Creatinine 0.78 (0.51-1.17) mg/dL Est Cr Clr Drug Dosing TNP Estimated GFR (MDRD) > 60 mL/min Glucose 154 H (70-99) mg/dL Lactic Acid (0.4-2.0) mmol/L Calcium 8.4 L (8.5-10.1) mg/dL Specimen Type Urine Color Urine Appearance Urine pH (5.0-9.0) Ur Specific [place] (1.005-1.030) Urine Protein (NEGATIVE) mg/dL Urine Glucose (UA) (NEGATIVE) mg/dL Urine Ketones (NEGATIVE) mg/dL Urine Occult Blood (NEGATIVE) Urine Nitrite (NEGATIVE) Urine Bilirubin (NEGATIVE) Urine Urobilinogen (0.2-1.0) E.U./dL Ur Leukocyte Esterase (NEGATIVE) Urine RBC /HPF Urine WBC /HPF Ur Epithelial Cells /LPF Urine Bacteria (NONE TO FEW) /HPF SARS-CoV-2 RNA (MYRIAM) Negative (NEGATIVE) 05/08/20 05/08/20 Range/Units 10:20 10:40 WBC (4.0-10.2) K/uL RBC (3.77-5.09) M/uL Hgb (11.7-15.5) g/dL Hct (34.0-46.0) % MCV (84.0-98.0) fL MCH (28.2-33.3) pg MCHC (31.7-36.0) g/dL RDW (11.2-14.1) % Plt Count (150-350) K/uL Neut % (Auto) (45.0-80.0) % Lymph % (Auto) (10.0-50.0) % [place] % (Auto) (2.0-14.0) % Eos % (Auto) (0.0-5.0) % Baso % (Auto) (0.0-2.0) % Neut # (Auto) (1.40-7.00) K/uL Lymph # (Auto) (0.50-3.50) K/uL [place] # (Auto) (0.00-1.00) K/uL Eos # (Auto) (0.00-0.50) K/uL Baso # (Auto) (0.00-0.20) K/uL Sodium (136-145) mmol/L Potassium (3.5-5.1) mmol/L Chloride (98-107) mmol/L Carbon Dioxide (21.0-32.0) mmol/L BUN (7-18) mg/dL Creatinine (0.51-1.17) mg/dL Est Cr Clr Drug Dosing Estimated GFR (MDRD) mL/min Glucose (70-99) mg/dL Lactic Acid 1.1 (0.4-2.0) mmol/L Calcium (8.5-10.1) mg/dL Specimen Type Urinblad Urine Color Dark yellow Urine Appearance Cloudy Urine pH 5.5 (5.0-9.0) Ur Specific [place] 1.020 (1.005-1.030) Urine Protein 100 H (NEGATIVE) mg/dL Urine Glucose (UA) Negative (NEGATIVE) mg/dL Urine Ketones Negative (NEGATIVE) mg/dL Urine Occult Blood Moderate H (NEGATIVE) Urine Nitrite Positive H (NEGATIVE) Urine Bilirubin Small H (NEGATIVE) Urine Urobilinogen 1.0 (0.2-1.0) E.U./dL Ur Leukocyte Esterase Small H (NEGATIVE) Urine RBC 0-5 /HPF Urine WBC 30-40 H /HPF Ur Epithelial Cells Few /LPF Urine Bacteria Many H (NONE TO FEW) /HPF SARS-CoV-2 RNA (MYRIAM) (NEGATIVE) Result Diagrams: 05/08/20 10:20 05/08/20 10:20 Jameel Results Last 24 hrs: Microbiology 05/08/20 10:40 Urine Culture - Preliminary Urine, Voided Gram Negative Rods Sepsis Event Note - Evaluation Sepsis Screening Result: Sepsis Risk - Focused Exam Vital Signs: Vital Signs Temp Pulse Pulse Resp BP BP Pulse Ox 05/09/20 08:12 166/94 H 05/09/20 08:11 91 166/94 H 05/09/20 08:00 37.3 C 91 17 166/94 H 95 05/09/20 04:00 36.2 C 82 16 155/92 H 95 05/09/20 00:00 36.2 C 84 16 101/59 L 95 - Problem List & Annotations (1) Pyelonephritis SNOMED Code(s): 00374830 Code(s): N12 - TUBULO-INTERSTITIAL NEPHRITIS, NOT SPCF ACUTE OR CHRONIC Status: Acute Priority: High Current Visit: Yes Onset Date: ~05/08/20 Annotation/Comment:: Secondary to persistent fever and significant leukocytosis on admission patient's IV Rocephin therapy will be increased from current every 24 to a every 12 hours regimen this morning. Her symptoms have significantly improved with no lactic acid elevation or evidence of sepsis at time of admission. Secondary to patient's history of CHF her IV fluids will be decreased initially to 80 cc/h with further decrease or discontinuation of IV fluids later today, she continues to tolerate her diet. Blood work to be repeated in the a.m.. Probable E. coli UTI with urine culture and sensitivity still pending. Blood cultures x2 were also collected on admission. (2) Hypertension SNOMED Code(s): 81167336 Code(s): I10 - ESSENTIAL (PRIMARY) HYPERTENSION Status: Chronic Priority: Medium Current Visit: Yes Qualifiers: Hypertension type: essential hypertension Qualified Code(s): I10 - Essential (primary) hypertension Annotation/Comment:: Blood pressures under good control during this hospitalization. Continue to observe closely, including on an outpatient basis by her regular providers. (3) COPD (chronic obstructive pulmonary disease) SNOMED Code(s): 09877788 Code(s): J44.9 - CHRONIC OBSTRUCTIVE PULMONARY DISEASE, UNSPECIFIED Status: Chronic Priority: Medium Current Visit: Yes Qualifiers: COPD type: emphysema Emphysema type: panlobular Qualified Code(s): J43.1 - Panlobular emphysema Annotation/Comment:: No current bronchitic-type symptoms, fever, etc.. Patient does not require medications for her COPD currently. Consider PFTs in the future as needed. (4) Heart disease SNOMED Code(s): 21314450 Code(s): I51.9 - HEART DISEASE, UNSPECIFIED Status: Chronic Priority: High Current Visit: Yes Annotation/Comment:: No chest pain or anginal-type symptoms. Note previous history of CHF, cardiac arrhythmia, hyperlipidemia, and nonspecific syncopal episode in February 2014. Occasional PVCs noted in the ER and during the early phases of this hospitalization. Continue close observation for now. (5) Osteoarthritis SNOMED Code(s): 230075375 Code(s): M19.90 - UNSPECIFIED OSTEOARTHRITIS, UNSPECIFIED SITE Status: Chronic Priority: Medium Current Visit: Yes Qualifiers: Osteoarthritis location: multiple joints Osteoarthritis type: primary Qualified Code(s): M89.49 - Other hypertrophic osteoarthropathy, multiple sites Annotation/Comment:: Stable during this hospitalization. Otherwise stable by history. (6) Peptic reflux disease SNOMED Code(s): 342344276 Code(s): K21.9 - GASTRO-ESOPHAGEAL REFLUX DISEASE WITHOUT ESOPHAGITIS Status: Chronic Priority: Medium Current Visit: Yes Annotation/Comment:: Stable by patient history (7) PVCs (premature ventricular contractions) SNOMED Code(s): 50619874 Code(s): I49.3 - VENTRICULAR PREMATURE DEPOLARIZATION Status: Chronic Priority: Medium Current Visit: Yes Annotation/Comment:: PVCs in the emergency room and during the early phase of this hospitalization. Known history of PVCs, PACs, etc. as per emergency room note. Continue close observation for now. Note cardiac history as above, including nonsymptomatic borderline CHF. (8) CHF (congestive heart failure) SNOMED Code(s): 94621567 Code(s): I50.9 - HEART FAILURE, UNSPECIFIED Status: Chronic Priority: Medium Current Visit: Yes Qualifiers: Heart failure chronicity: chronic Annotation/Comment:: No clinical evidence of significant CHF. IV fluids decre ased on 05/09/2020 as above. Continue to observe closely for now. Last echocardiogram on 07/20/2014 did show an excellent ejection fraction. Consider repeat echocardiogram on an outpatient basis depending on her clinical course. - Problem List Review Problem List Initiated/Reviewed/Updated: Yes - My Orders Last 24 Hours: My Active Orders 05/09/20 Breakfast Fluid Restriction [DIET] 05/09/20 08:20 NS + KCl 20mEq/L [Normal Saline with 20 mEq KCl] 1,000 ml IV ASDIRECTED 05/09/20 08:26 Height and Weight [RC] DAILY Intake and Output Strict [RC] ASDIRECTED Oxygen Therapy [RC] PRN Pulse Oximetry [RC] ASDIRECTED Up With Assistance [RC] ASDIRECTED GM Immunization Reflex [OM.PC] Click to Edit 05/09/20 08:28 Vaccines to be Administered [RC] .PRN 05/09/20 08:30 cefTRIAXone [Rocephin] 1 gm Sodium Chloride 0.9% [Normal Saline] 100 ml IV Q12H 05/10/20 05:11 CBC WITH AUTO DIFF [HEME] Routine COMPREHENSIVE METABOLIC PN,CMP [CHEM] Routine MAGNESIUM [CHEM] Routine - Assessment Assessment:: As above - Plan Plan:: As above. Extensive precautions were given to the patient, who is in agreement with the treatment plan. The patient will require about 2-3 days of inpatient/acute care secondary to multiple health problems as above. restorative care technician physician assumes care tomorrow.
[2020-05-09] MEDS ORDERED: cefTRIAXone 1 GM in Sodium Chloride 0.9% 100 ML IV SCH (11:00)
[2020-05-09] MEDS: Simvastatin 20 MG Tab PO SCH (19:45)
[2020-05-09] MEDS: Acetaminophen 325 MG Tab PO PRN (19:45)
[2020-05-10] MEDS: Beta-Carotene (Vitamin A) w/Vitamin C & E plus Minerals Tab PO SCH (07:27)
[2020-05-10] MEDS: Hydrochlorothiazide 25 MG Tab PO SCH (07:27)
[2020-05-10] MEDS: Aspirin 81 MG Tab.EC PO SCH (07:28)
[2020-05-10] MEDS: cefTRIAXone 1 GM in Sodium Chloride 0.9% 100 ML IV SCH ×2 (07:34→19:38)
[2020-05-10] MEDS: cloNIDine 0.1 MG Tab PO SCH ×2 (07:35→19:10)
[2020-05-10] MEDS: Metoprolol Succinate 50 MG Tab.ER PO SCH ×2 (07:35→19:09)
[2020-05-10] MEDS: Losartan 50 MG Tab PO SCH ×2 (07:35→19:10)
[2020-05-10 07:56] LABS: CHLORIDE,CL 99 mmol/L (98-107); SODIUM,NA 134 mmol/L (136-145)
--- NOTE | 2020-05-10 09:49 | PCM.PN ---
- General Info Date of Service: 05/10/20 Admission Dx/Problem (Free Text): 1. Pyelonephritis 2. UTI Functional Status: Reports: Pain Controlled, Tolerating Diet, Ambulating, Urinating, Incentive Spirometry. Denies: New Symptoms Pain Score: 0 - Review of Systems General: Reports: No Symptoms. Denies: Fever, Weakness, Fatigue, Malaise, Chills, Night Sweats, Appetite (Good) HEENT: Reports: Glasses. Denies: Dysphasia, Ear Pain, Eye Pain, Headaches, Post Nasal Drip, Sinus Congestion, Sore Throat, Rhinitis, Visual Changes Pulmonary: Reports: Cough (Chronic stable nonproductive). Denies: Shortness of Breath, Pleuritic Chest Pain, Sputum, Hemoptysis, Wheezing Cardiovascular: Reports: No Symptoms. Denies: Chest Pain, Palpitations, Dyspnea on Exertion, Orthopnea, Edema, Lightheadedness Gastrointestinal: Reports: No Symptoms, Other (Normal bowel movement yesterday). Denies: Abdominal Pain, Constipation, Decreased Appetite, Diarrhea, Difficulty Swallowing, Flatus, Hematochezia, Melena, Nausea, Vomiting Genitourinary: Reports: No Symptoms. Denies: Dysuria, Frequency, Burning, Urgency, Incontinence, Hematuria, Retention, Flank Pain Musculoskeletal: Reports: No Symptoms. Denies: Neck Pain, Shoulder Pain, Arm Pain, Back Pain, Leg Pain Skin: Reports: No Symptoms. Denies: Diaphoresis, Bruising Neurological: Reports: No Symptoms. Denies: Confusion, Headache, Weakness Psychiatric: Reports: No Symptoms. Denies: Confusion, Depression, Anxiety, Agitation, Cravings, Hallucinations - Patient Data Vitals - Most Recent: Last Vital Signs Temp 36.0 C L 05/10/20 08:00 Pulse 80 05/10/20 08:00 Resp 16 05/10/20 08:00 BP 160/89 H 05/10/20 08:00 Pulse Ox 97 05/10/20 08:00 Vital Signs - 24 hr 05/09/20 05/09/20 05/09/20 12:00 15:30 19:43 Temperature [ 36.3 C 37.5 C Temporal] Pulse, 96 Peripheral Pulse, 87 80 Peripheral [ Pulse Oximetry] Respiratory 18 18 Rate Blood Pressure 164/78 H Blood Pressure 159/56 H 154/64 H [Right Upper Arm] O2 Sat by Pulse 97 97 Oximetry 05/09/20 05/09/20 05/09/20 19:44 19:45 20:00 Temperature [ 37.6 C Temporal] Pulse, Peripheral Pulse, 89 Peripheral [ Pulse Oximetry] Respiratory 18 Rate Blood Pressure 164/78 H 164/78 H Blood Pressure 148/68 H [Right Upper Arm] O2 Sat by Pulse 96 Oximetry 05/09/20 05/10/20 05/10/20 23:45 04:00 07:35 Temperature [ 36.3 C 36.3 C Temporal] Pulse, 80 Peripheral Pulse, 69 68 Peripheral [ Pulse Oximetry] Respiratory 18 16 Rate Blood Pressure 160/89 H Blood Pressure 149/85 H 146/74 H [Right Upper Arm] O2 Sat by Pulse 95 95 Oximetry 05/10/20 08:00 Temperature [ 36.0 C L Temporal] Pulse, Peripheral Pulse, 80 Peripheral [ Pulse Oximetry] Respiratory 16 Rate Blood Pressure Blood Pressure 160/89 H [Right Upper Arm] O2 Sat by Pulse 97 Oximetry Weight - Most Recent: 61.462 kg I&O - Last 24 Hours: Intake & Output 05/09/20 05/10/20 05/10/20 22:59 06:59 14:59 Intake Total 1550 250 Output Total 600 700 Balance 950 -700 250 Imaging Impressions - Last 24 Hours: clinical specialty rep shows normal sinus rhythm with heart rate in the 60s to 80s with occasional PACs noted with no return of previous PVCs. Lab Results Last 24 Hours: Laboratory Results - last 24 hr 05/10/20 05/10/20 05/10/20 Range/Units 07:23 07:23 07:23 WBC 8.9 (4.0-10.2) K/uL RBC 3.75 L (3.77-5.09) M/uL Hgb 11.0 L D (11.7-15.5) g/dL Hct 32.4 L (34.0-46.0) % MCV 86.4 (84.0-98.0) fL MCH 29.3 (28.2-33.3) pg MCHC 34.0 (31.7-36.0) g/dL RDW 13.4 (11.2-14.1) % Plt Count 218 (150-350) K/uL Neut % (Auto) 72.4 (45.0-80.0) % Lymph % (Auto) 14.7 (10.0-50.0) % Glenn % (Auto) 10.8 (2.0-14.0) % Eos % (Auto) 1.8 (0.0-5.0) % Baso % (Auto) 0.3 (0.0-2.0) % Neut # (Auto) 6.40 (1.40-7.00) K/uL Lymph # (Auto) 1.30 (0.50-3.50) K/uL Glenn # (Auto) 0.96 (0.00-1.00) K/uL Eos # (Auto) 0.16 (0.00-0.50) K/uL Baso # (Auto) 0.03 (0.00-0.20) K/uL Sodium 134 L (136-145) mmol/L Potassium 3.0 L (3.5-5.1) mmol/L Chloride 99 (98-107) mmol/L Carbon Dioxide 26.9 (21.0-32.0) mmol/L BUN 6 L (7-18) mg/dL Creatinine 0.51 (0.51-1.17) mg/dL Est Cr Clr Drug Dosing 60.03 mL/min Estimated GFR (MDRD) > 60 mL/min Glucose 119 H (70-99) mg/dL Lactic Acid 0.7 (0.4-2.0) mmol/L Calcium 8.0 L (8.5-10.1) mg/dL Magnesium 1.7 L (1.8-2.4) mg/dL Total Bilirubin 0.4 (0.2-1.0) mg/dL AST 20 (15-37) U/L ALT 22 (12-78) U/L Alkaline Phosphatase 70 (46-116) IU/L Total Protein 6.2 L (6.4-8.2) g/dL Albumin 2.4 L (3.4-5.0) g/dL Jameel Results Last 24 Hours: Microbiology 05/08/20 10:40 Urine Culture - Final Urine, Voided Escherichia Coli 05/08/20 10:20 Aerobic Blood Culture - Preliminary Blood - Venous NO GROWTH AFTER 1 DAY Anaerobic Blood Culture - Preliminary Gram Negative Rods 05/08/20 10:28 Aerobic Blood Culture - Preliminary Blood - Venous - Lab Draw NO GROWTH AFTER 1 DAY Anaerobic Blood Culture - Preliminary Med Orders - Current: Current Medications Acetaminophen (Acetaminophen 325 Mg Tab) 650 mg PO Q4H PRN PRN Reason: analgesia/fever Last Admin: 05/09/20 19:45 Dose: 650 mg Documented by: Aspirin (Aspirin 81 Mg Tab.Ec) 81 mg PO DAILY [facility] Last Admin: 05/10/20 07:28 Dose: 81 mg Documented by: Bisacodyl (Bisacodyl 10 Mg Supp) 10 mg RECTAL DAILY PRN PRN Reason: Constipation Clonidine HCl (Clonidine 0.1 Mg Tab) 0.1 mg PO Q12HR [facility] Last Admin: 05/10/20 07:35 Dose: 0.1 mg Documented by: Docusate Sodium (Docusate Sodium 100 Mg Cap) 100 mg PO DAILY PRN PRN Reason: Constipation Famotidine (Famotidine 20 Mg/2 Ml Sdv) 20 mg IVPUSH DAILY [facility] Hydrochlorothiazide (Hydrochlorothiazide 25 Mg Tab) 50 mg PO DAILY [facility] Last Admin: 05/10/20 07:27 Dose: 50 mg Documented by: Ceftriaxone Sodium 1 gm/ (Sodium Chloride) 100 mls @ 200 mls/hr IV Q12H [facility] Last Admin: 05/10/20 07:34 Dose: 200 mls/hr Documented by: Vancomycin HCl 1 gm/ Sodium (Chloride) 250 mls @ 165 mls/hr IV Q24H [facility] Last Admin: 05/09/20 11:48 Dose: 165 mls/hr Documented by: Losartan Potassium (Losartan 50 Mg Tab) 50 mg PO Q12HR [facility] Last Admin: 05/10/20 07:35 Dose: 50 mg Documented by: Magnesium Oxide (Magnesium Oxide 400 Mg Tab) 400 mg PO BID [facility] Metoprolol Succinate (Metoprolol Succinate 50 Mg Tab.Er) 100 mg PO BEDTIME [facility] Last Admin: 05/09/20 19:43 Dose: 100 mg Documented by: Metoprolol Succinate (Metoprolol Succinate 50 Mg Tab.Er) 50 mg PO DAILY [facility] Last Admin: 05/10/20 07:35 Dose: 50 mg Documented by: Multivitamins/Minerals (Beta-Carotene (Vitamin A) W/Vitamin C & E Plus Minerals Tab) 1 tab PO DAILY [facility] Last Admin: 05/10/20 07:27 Dose: 1 tab Documented by: Pantoprazole Sodium (Pantoprazole 40 Mg Vial) 40 mg IVPUSH Q12H [facility] Potassium Chloride (Potassium Chloride 20 Meq Tab.Er) 20 meq PO TID [facility]IS[facility] Simvastatin (Simvastatin 20 Mg Tab) 20 mg PO BEDTIME [facility] Last Admin: 05/09/20 19:45 Dose: 20 mg Documented by: Vancomycin HCl (Pharmacy To Dose - Vancomycin) 1 dose .XX ASDIRECTED [facility] Discontinued Medications Ceftriaxone Sodium 1 gm/ (Sodium Chloride) 100 mls @ 200 mls/hr IV ONETIME ONE Stop: 05/08/20 11:20 Last Admin: 05/08/20 11:47 Dose: 200 mls/hr Documented by: Potassium Chloride/Sodium Chloride (Normal Saline With 20 Meq Kcl) 1,000 mls @ 100 mls/hr IV ASDIRECTED [facility] Last Admin: 05/09/20 07:52 Dose: 100 mls/hr Documented by: Ceftriaxone Sodium 1 gm/ (Sodium Chloride) 100 mls @ 200 mls/hr IV Q24H [facility] Potassium Chloride/Sodium Chloride (Normal Saline With 20 Meq Kcl) 1,000 mls @ 80 mls/hr IV ASDIRECTED [facility] Last Admin: 05/09/20 11:48 Dose: 80 mls/hr Documented by: - Exam Quality Assessment: Supplemental Oxygen, Central Line/PICC, Urine Catheter, DVT Prophylaxis. No: Skin Breakdown General: Alert, Oriented, Cooperative, No Acute Distress HEENT: Pupils Equal, Pupils Reactive, EOMI, Mucous Membr. Moist/[place], Other (Patient is wearing glasses. No vertigo or nystagmus). No: Scleral Icterus Neck: Supple, Trachea Midline, No JVD, No Thyromegaly. No: Lymphadenopathy Lungs: Clear to Auscultation, Normal Respiratory Effort. No: Rhonchi, Rub, Wheezing Cardiovascular: Regular Rate, No Murmurs, Other (Occasional extra systoles with PACs by shipping lead person). No: Gallops, Rubs GI/Abdominal Exam: Normal Bowel Sounds, Soft, Non-Tender, No Organomegaly, No Distention, No Abnormal Bruit, No Mass, Pelvis Stable. No: Guarding (Female) Exam: Deferred Back Exam: Other (Mild scoliosis). No: CVA Tenderness (L), CVA Tenderness (R), Decreased Range of Motion, Muscle Spasm, Paraspinal Tenderness, Vertebral Tenderness Extremities: Normal Inspection, Normal Range of Motion, Non-Tender, No Pedal Edema, Normal Capillary Refill. No: Oscar's Sign Peripheral Pulses: 2+: Radial (L), Radial (R), Dorsalis Pedis (L), Dorsalis Pedis (R) Skin: Warm, Dry, Intact. No: Ecchymosis Neurological: No New Focal Deficit, Other (No clinical orthostasis) Psy/Mental Status: Alert, Normal Affect, Normal Mood. No: Agitated, Hallucinations, Withdrawal Symptoms - Patient Data Lab Results Last 24 hrs: Laboratory Results - last 24 hr 05/10/20 05/10/20 05/10/20 Range/Units 07:23 07:23 07:23 WBC 8.9 (4.0-10.2) K/uL RBC 3.75 L (3.77-5.09) M/uL Hgb 11.0 L D (11.7-15.5) g/dL Hct 32.4 L (34.0-46.0) % MCV 86.4 (84.0-98.0) fL MCH 29.3 (28.2-33.3) pg MCHC 34.0 (31.7-36.0) g/dL RDW 13.4 (11.2-14.1) % Plt Count 218 (150-350) K/uL Neut % (Auto) 72.4 (45.0-80.0) % Lymph % (Auto) 14.7 (10.0-50.0) % Glenn % (Auto) 10.8 (2.0-14.0) % Eos % (Auto) 1.8 (0.0-5.0) % Baso % (Auto) 0.3 (0.0-2.0) % Neut # (Auto) 6.40 (1.40-7.00) K/uL Lymph # (Auto) 1.30 (0.50-3.50) K/uL Glenn # (Auto) 0.96 (0.00-1.00) K/uL Eos # (Auto) 0.16 (0.00-0.50) K/uL Baso # (Auto) 0.03 (0.00-0.20) K/uL Sodium 134 L (136-145) mmol/L Potassium 3.0 L (3.5-5.1) mmol/L Chloride 99 (98-107) mmol/L Carbon Dioxide 26.9 (21.0-32.0) mmol/L BUN 6 L (7-18) mg/dL Creatinine 0.51 (0.51-1.17) mg/dL Est Cr Clr Drug Dosing 60.03 mL/min Estimated GFR (MDRD) > 60 mL/min Glucose 119 H (70-99) mg/dL Lactic Acid 0.7 (0.4-2.0) mmol/L Calcium 8.0 L (8.5-10.1) mg/dL Magnesium 1.7 L (1.8-2.4) mg/dL Total Bilirubin 0.4 (0.2-1.0) mg/dL AST 20 (15-37) U/L ALT 22 (12-78) U/L Alkaline Phosphatase 70 (46-116) IU/L Total Protein 6.2 L (6.4-8.2) g/dL Albumin 2.4 L (3.4-5.0) g/dL Result Diagrams: 05/10/20 07:23 05/10/20 07:23 Jameel Results Last 24 hrs: Microbiology 05/08/20 10:40 Urine Culture - Final Urine, Voided Escherichia Coli 05/08/20 10:20 Aerobic Blood Culture - Preliminary Blood - Venous NO GROWTH AFTER 1 DAY Anaerobic Blood Culture - Preliminary Gram Negative Rods 05/08/20 10:28 Aerobic Blood Culture - Preliminary Blood - Venous - Lab Draw NO GROWTH AFTER 1 DAY Anaerobic Blood Culture - Preliminary Sepsis Event Note - Evaluation Sepsis Screening Result: Sepsis Risk - Focused Exam Vital Signs: Vital Signs Temp Pulse Pulse Resp BP BP Pulse Ox 05/10/20 08:00 36.0 C L 80 16 160/89 H 97 05/10/20 07:35 80 160/89 H 05/10/20 04:00 36.3 C 68 16 146/74 H 95 05/09/20 23:45 36.3 C 69 18 149/85 H 95 - Problem List & Annotations (1) Sepsis SNOMED Code(s): 30973834 Code(s): A41.9 - SEPSIS, UNSPECIFIED ORGANISM Status: Acute Priority: High Current Visit: Yes Onset Date: 05/09/20 Qualifiers: Sepsis type: Escherichia coli Sepsis acute organ dysfunction status: without acute organ dysfunction Qualified Code(s): A41.51 - Sepsis due to Escherichia coli [E. coli] Annotation/Comment:: Probable urosepsis with E. coli with final urine culture and sensitivity results still pending. Note only 1+ anaerobic blood culture with otherwise normal blood culture results. IV vancomycin was added on 05/09 to previous IV Rocephin regimen, which was also increased on 05/09 as below. Lactic acid levels x2 have been negative to this point with no clinical evidence of significant complications. Continue telemetry, which was initiated on 05/09, secondary to her sepsis. Note resolved fever and significantly improved leukocytosis on 05/10. Likely prolonged hospitalization secondary to her sepsis, which did require IV antibiotics as above. (2) Pyelonephritis SNOMED Code(s): 90342409 Code(s): N12 - TUBULO-INTERSTITIAL NEPHRITIS, NOT SPCF ACUTE OR CHRONIC Status: Acute Priority: High Current Visit: Yes Onset Date: ~05/08/20 Annotation/Comment:: Note initiation of additional IV vancomycin therapy as above. Maximum temperature of 37.5 during the last 24 hours with patient afebrile this morning. Secondary to persistent fever on 05/09 and significant leukocytosis on admission patient's IV Rocephin therapy was increased from previous every 24 to an every 12 hours regimen in the a.m. on 05/09. Her symptoms have significantly improved since admission with no lactic acid elevation or evidence of sepsis at time of admission with normal lactic acid level on 05/10/2020. Secondary to patient's history of CHF her IV fluids was decreased initially to 80 cc/h in the a.m. on 05/09 with discontinuation of IV fluids later that afternoon. Limited blood work on 05/11 with blood work, including vancomycin trough level already ordered for 05/12. Probable E. coli UTI with urine culture and sensitivity still pending. Blood cultures x2 were also collected on admission with one positive anaerobic culture result as above. (3) Hypertension SNOMED Code(s): 61436060 Code(s): I10 - ESSENTIAL (PRIMARY) HYPERTENSION Status: Chronic Priority: Medium Current Visit: Yes Qualifiers: Hypertension type: essential hypertension Qualified Code(s): I10 - Essential (primary) hypertension Annotation/Comment:: Blood pressures somewhat elevated on 05/10/2020 with further. Continue to observe closely with further medication adjustment during this hospitalization depending on her clinical course. (4) COPD (chronic obstructive pulmonary disease) SNOMED Code(s): 39072788 Code(s): J44.9 - CHRONIC OBSTRUCTIVE PULMONARY DISEASE, UNSPECIFIED Status: Chronic Priority: Medium Current Visit: Yes Qualifiers: COPD type: emphysema Emphysema type: panlobular Qualified Code(s): J43.1 - Panlobular emphysema Annotation/Comment:: No current bronchitic-type symptoms, fever, etc. with stable chronic nonproductive cough. Patient does not require medications for her COPD currently. Consider PFTs in the future as needed. (5) Heart disease SNOMED Code(s): 67628632 Code(s): I51.9 - HEART DISEASE, UNSPECIFIED Status: Chronic Priority: High Current Visit: Yes Annotation/Comment:: No chest pain or anginal-type s ymptoms. Note previous history of CHF, cardiac arrhythmia, hyperlipidemia, and nonspecific syncopal episode in February 2014. Occasional PVCs noted in the ER and during the early phases of this hospitalization with additional PACs on 05/09 and 05/10/2020. Continue close observation for now. Note hypomagnesemia as below. (6) Osteoarthritis SNOMED Code(s): 810985867 Code(s): M19.90 - UNSPECIFIED OSTEOARTHRITIS, UNSPECIFIED SITE Status: Chronic Priority: Medium Current Visit: Yes Qualifiers: Osteoarthritis location: multiple joints Osteoarthritis type: primary Qualified Code(s): M89.49 - Other hypertrophic osteoarthropathy, multiple sites Annotation/Comment:: Stable during this hospitalization. Otherwise stable by history. (7) Peptic reflux disease SNOMED Code(s): 708008661 Code(s): K21.9 - GASTRO-ESOPHAGEAL REFLUX DISEASE WITHOUT ESOPHAGITIS Status: Chronic Priority: Medium Current Visit: Yes Annotation/Comment:: Stable by patient history with no evidence of acute GI bleed despite progressive anemia as below. High-dose IV Pepcid and IV Protonix were initiated on 05/10 as a preventative measure. Hemoccult also ordered. (8) PVCs (premature ventricular contractions) SNOMED Code(s): 87198771 Code(s): I49.3 - VENTRICULAR PREMATURE DEPOLARIZATION Status: Chronic Priority: Medium Current Visit: Yes Annotation/Comment:: PVCs in the emergency room and during the early phase of this hospitalization. Known history of PVCs, PACs, etc. as per emergency room note. Continue close observation for now. Note cardiac history as above, including nonsymptomatic borderline CHF. (9) CHF (congestive heart failure) SNOMED Code(s): 20143704 Code(s): I50.9 - HEART FAILURE, UNSPECIFIED Status: Chronic Priority: Medium Current Visit: Yes Qualifiers: Heart failure chronicity: chronic Annotation/Comment:: No clinical evidence of significant CHF. IV fluids decreased on 05/09/2020 as above. Continue to observe closely for now. Last echocardiogram on 07/20/2014 did show an excellent ejection fraction. Consider repeat echocardiogram on an outpatient basis depending on her clinical course. (10) PAC (premature atrial contraction) SNOMED Code(s): 221778907 Code(s): I49.1 - ATRIAL PREMATURE DEPOLARIZATION Status: Chronic Priority: Medium Current Visit: Yes Annotation/Comment:: As above. Increased frequency on 05/09 and 05/10. Continue to observe closely for now. (11) Hypokalemia SNOMED Code(s): 72977201 Code(s): E87.6 - HYPOKALEMIA Status: Acute Priority: Medium Current Visit: Yes Onset Date: 05/08/20 Annotation/Comment:: Previous IV fluids as above with persistent hypokalemia. Oral potassium supplement initiated on 05/10 (12) Hyponatremia SNOMED Code(s): 83965926 Code(s): E87.1 - HYPO-OSMOLALITY AND HYPONATREMIA Status: Acute Priority: Medium Current Visit: Yes Onset Date: 05/08/20 Annotation/Comment:: Sodium improved on 05/10. Note IV fluids previously given as above. Observe for now. (13) Hypoalbuminemia SNOMED Code(s): 238246550 Code(s): E88.09 - OTH DISORDERS OF PLASMA-PROTEIN METABOLISM, NEC Status: Acute Priority: Medium Current Visit: Yes Onset Date: 05/10/20 Annotation/Comment:: Observe for now (14) Anemia SNOMED Code(s): 447970842 Code(s): D64.9 - ANEMIA, UNSPECIFIED Status: Acute Priority: Medium Cur rent Visit: Yes Onset Date: 05/10/20 Qualifiers: Anemia type: unspecified type Qualified Code(s): D64.9 - Anemia, unspecified Annotation/Comment:: Progressive anemia likely secondary to rehydration effect with no evidence of acute GI bleed as above. Iron studies, vitamin B12 level, and folic acid level to be conducted on 05/10. - Problem List Review Problem List Initiated/Reviewed/Updated: Yes - My Orders Last 24 Hours: My Active Orders 05/09/20 11:00 Pharmacy to Dose - Vancomycin 1 dose .XX ASDIRECTED 05/09/20 12:00 Vancomycin 1 gm Sodium Chloride 0.9% [Normal Saline] 250 ml IV Q24H 05/09/20 13:30 Cardiac Monitoring [RC] Q2HR 05/10/20 09:39 Potassium Chloride [Klor-Con M20] 20 meq PO TID 05/10/20 09:42 OCCULT BLOOD DIAGNOSTIC [OP] Routine 05/10/20 09:45 Famotidine [Pepcid] 20 mg IVPUSH DAILY Magnesium Oxide 400 mg PO BID Pantoprazole [ProTONIX IV] 40 mg IVPUSH Q12H 05/11/20 05:11 BASIC METABOLIC PANEL,BMP [CHEM] Routine CBC WITH AUTO DIFF [HEME] Routine MAGNESIUM [CHEM] Routine 05/12/20 11:30 CBC WITH AUTO DIFF [HEME] Routine COMPREHENSIVE METABOLIC PN,CMP [CHEM] Routine VANCOMYCIN TROUGH [CHEM] Timed - Assessment Assessment:: As above - Plan Plan:: As above. Extensive precautions were given to the patient, who is in agreement with the treatment plan. The patient will require about 3 days of inpatient/acute care secondary to multiple health problems as above. [facility] physician assumes care later this afternoon.
[2020-05-10] MEDS: Pantoprazole 40 MG Vial IVPUSH SCH ×2 (10:33→19:10)
[2020-05-10] MEDS: Magnesium Oxide 400 MG Tab PO SCH ×2 (10:33→17:29)
[2020-05-10] MEDS: Famotidine 20 MG/2 ML SDV IVPUSH SCH (10:33)
[2020-05-10] MEDS: Potassium Chloride 20 MEQ Tab.ER PO SCH ×3 (10:33→17:29)
[2020-05-10] MEDS: Sodium Chloride 0.9% 10 ML Syringe FLUSH PRN ×2 (12:10→19:38)
[2020-05-10] MEDS: Isosorbide Mononitrate 30 MG Tab.ER PO SCH (17:30)
[2020-05-10] MEDS: Acetaminophen 325 MG Tab PO PRN (19:08)
[2020-05-10] MEDS: Simvastatin 20 MG Tab PO SCH (19:10)
[2020-05-11] MEDS: Losartan 50 MG Tab PO SCH ×2 (07:38→19:50)
[2020-05-11] MEDS: cloNIDine 0.1 MG Tab PO SCH ×2 (07:38→19:50)
[2020-05-11] MEDS: Aspirin 81 MG Tab.EC PO SCH (07:38)
[2020-05-11] MEDS: Magnesium Oxide 400 MG Tab PO SCH ×2 (07:39→17:20)
[2020-05-11] MEDS: Hydrochlorothiazide 25 MG Tab PO SCH (07:39)
[2020-05-11] MEDS: Beta-Carotene (Vitamin A) w/Vitamin C & E plus Minerals Tab PO SCH (07:39)
[2020-05-11] MEDS: Sodium Chloride 0.9% 10 ML Syringe FLUSH PRN ×2 (07:40→19:52)
[2020-05-11] MEDS: Famotidine 20 MG/2 ML SDV IVPUSH SCH (07:40)
[2020-05-11] MEDS: Pantoprazole 40 MG Vial IVPUSH SCH ×2 (07:40→19:51)
[2020-05-11] MEDS: Potassium Chloride 20 MEQ Tab.ER PO SCH ×3 (07:40→17:20)
[2020-05-11] MEDS: cefTRIAXone 1 GM in Sodium Chloride 0.9% 100 ML IV SCH ×2 (07:41→19:52)
[2020-05-11] MEDS: Metoprolol Succinate 50 MG Tab.ER PO SCH ×2 (07:46→19:51)
[2020-05-11 08:05] LABS: CHLORIDE,CL 99 mmol/L (98-107); SODIUM,NA 135 mmol/L (136-145)
[2020-05-11 12:45] LABS: HEMOGLOBIN A1C 6.2 % (4.3-5.7)
--- NOTE | 2020-05-11 12:51 | PCM.PN ---
- General Info Date of Service: 05/11/20 Admission Dx/Problem (Free Text): 1. Pyelonephritis 2. UTI Subjective Update: Patient feeling much better overall Functional Status: Reports: Pain Controlled Pain Score: 0 - Review of Systems General: Reports: Fatigue. Denies: Fever, Malaise, Chills, Night Sweats, Appetite HEENT: Reports: Glasses. Denies: Visual Changes Pulmonary: Denies: Shortness of Breath, Pleuritic Chest Pain, Cough, Sputum, Hemoptysis, Wheezing Cardiovascular: Denies: Chest Pain, Palpitations, Lightheadedness Gastrointestinal: Denies: Abdominal Pain, Constipation, Diarrhea, Nausea, Vomiting Genitourinary: Denies: Dysuria, Frequency, Burning, Urgency, Hematuria, Flank Pain Musculoskeletal: Reports: No Symptoms Skin: Reports: No Symptoms Neurological: Reports: No Symptoms Psychiatric: Reports: No Symptoms - Patient Data Vitals - Most Recent: Last Vital Signs Temp 36.3 C 05/11/20 08:00 Pulse 71 05/11/20 08:00 Resp 18 05/11/20 08:00 BP 154/87 H 05/11/20 08:00 Pulse Ox 95 05/10/20 19:00 Weight - Most Recent: 63.049 kg I&O - Last 24 Hours: Intake & Output 05/10/20 05/11/20 05/11/20 22:59 06:59 14:59 Intake Total 220 300 520 Output Total 800 Balance -580 300 520 Lab Results Last 24 Hours: Laboratory Results - last 24 hr 05/11/20 05/11/20 05/11/20 Range/Units 07:16 07:16 07:16 WBC 7.8 (4.0-10.2) K/uL RBC 3.46 L (3.77-5.09) M/uL Hgb 10.2 L (11.7-15.5) g/dL Hct 30.1 L (34.0-46.0) % MCV 87.0 (84.0-98.0) fL MCH 29.5 (28.2-33.3) pg MCHC 33.9 (31.7-36.0) g/dL RDW 13.3 (11.2-14.1) % Plt Count 248 (150-350) K/uL Neut % (Auto) 70.1 (45.0-80.0) % Lymph % (Auto) 17.5 (10.0-50.0) % [place] % (Auto) 8.5 (2.0-14.0) % Eos % (Auto) 3.4 (0.0-5.0) % Baso % (Auto) 0.5 (0.0-2.0) % Neut # (Auto) 5.43 (1.40-7.00) K/uL Lymph # (Auto) 1.36 (0.50-3.50) K/uL [place] # (Auto) 0.66 (0.00-1.00) K/uL Eos # (Auto) 0.26 (0.00-0.50) K/uL Baso # (Auto) 0.04 (0.00-0.20) K/uL Sodium 135 L (136-145) mmol/L Potassium 3.4 L (3.5-5.1) mmol/L Chloride 99 (98-107) mmol/L Carbon Dioxide 28.7 (21.0-32.0) mmol/L BUN 5 L (7-18) mg/dL Creatinine 0.56 (0.51-1.17) mg/dL Est Cr Clr Drug Dosing 54.67 mL/min Estimated GFR (MDRD) > 60 mL/min Glucose 112 H (70-99) mg/dL Hemoglobin A1c (4.3-5.7) % Calcium 8.1 L (8.5-10.1) mg/dL Magnesium 2.0 (1.8-2.4) mg/dL Iron 52 (50-175) ug/dL TIBC 173 L (250-450) ug/dL % Saturation 30.40803 Ferritin 158 (8-388) ng/mL Vitamin B12 730 (193-986) pg/mL Folate 17.6 (8.6-58.9) ng/mL 05/11/20 Range/Units 07:16 WBC (4.0-10.2) K/uL RBC (3.77-5.09) M/uL Hgb (11.7-15.5) g/dL Hct (34.0-46.0) % MCV (84.0-98.0) fL MCH (28.2-33.3) pg MCHC (31.7-36.0) g/dL RDW (11.2-14.1) % Plt Count (150-350) K/uL Neut % (Auto) (45.0-80.0) % Lymph % (Auto) (10.0-50.0) % [place] % (Auto) (2.0-14.0) % Eos % (Auto) (0.0-5.0) % Baso % (Auto) (0.0-2.0) % Neut # (Auto) (1.40-7.00) K/uL Lymph # (Auto) (0.50-3.50) K/uL [place] # (Auto) (0.00-1.00) K/uL Eos # (Auto) (0.00-0.50) K/uL Baso # (Auto) (0.00-0.20) K/uL Sodium (136-145) mmol/L Potassium (3.5-5.1) mmol/L Chloride (98-107) mmol/L Carbon Dioxide (21.0-32.0) mmol/L BUN (7-18) mg/dL Creatinine (0.51-1.17) mg/dL Est Cr Clr Drug Dosing mL/min Estimated GFR (MDRD) mL/min Glucose (70-99) mg/dL Hemoglobin A1c 6.2 H (4.3-5.7) % Calcium (8.5-10.1) mg/dL Magnesium (1.8-2.4) mg/dL Iron (50-175) ug/dL TIBC (250-450) ug/dL % Saturation Ferritin (8-388) ng/mL Vitamin B12 (193-986) pg/mL Folate (8.6-58.9) ng/mL Jameel Results Last 24 Hours: Microbiology 05/08/20 10:28 Aerobic Blood Culture - Preliminary Blood - Venous - Lab Draw NO GROWTH AFTER 3 DAYS Anaerobic Blood Culture - Final 05/08/20 10:20 Aerobic Blood Culture - Preliminary Blood - Venous NO GROWTH AFTER 3 DAYS Anaerobic Blood Culture - Final Escherichia Coli 05/10/20 14:29 Stool Occult Blood (JAMEEL) - Final Stool / Feces NEGATIVE OCCULT BLOOD REFERENCE RANGE: NEGATIVE 05/08/20 10:40 Urine Culture - Final Urine, Voided Escherichia Coli Med Orders - Current: Current Medications Acetaminophen (Acetaminophen 325 Mg Tab) 650 mg PO Q4H PRN PRN Reason: analgesia/fever Last Admin: 05/10/20 19:08 Dose: 650 mg Documented by: Aspirin (Aspirin 81 Mg Tab.Ec) 81 mg PO DAILY [facility] Last Admin: 05/11/20 07:38 Dose: 81 mg Documented by: Bisacodyl (Bisacodyl 10 Mg Supp) 10 mg RECTAL DAILY PRN PRN Reason: Constipation Clonidine HCl (Clonidine 0.1 Mg Tab) 0.1 mg PO Q12HR [facility] Last Admin: 05/11/20 07:38 Dose: 0.1 mg Documented by: Docusate Sodium (Docusate Sodium 100 Mg Cap) 100 mg PO DAILY PRN PRN Reason: Constipation Famotidine (Famotidine 20 Mg/2 Ml Sdv) 20 mg IVPUSH DAILY [facility] Last Admin: 05/11/20 07:40 Dose: 20 mg Documented by: Hydrochlorothiazide (Hydrochlorothiazide 25 Mg Tab) 50 mg PO DAILY [facility] Last Admin: 05/11/20 07:39 Dose: 50 mg Documented by: Ceftriaxone Sodium 1 gm/ (Sodium Chloride) 100 mls @ 200 mls/hr IV Q12H [facility] Last Admin: 05/11/20 07:41 Dose: 200 mls/hr Documented by: Vancomycin HCl 1 gm/ Sodium (Chloride) 250 mls @ 165 mls/hr IV Q24H [facility] Last Admin: 05/10/20 12:09 Dose: 165 mls/hr Documented by: Isosorbide Mononitrate (Isosorbide Mononitrate 30 Mg Tab.Er) 30 mg PO QPM [facility] Last Admin: 05/10/20 17:30 Dose: 30 mg Documented by: Losartan Potassium (Losartan 50 Mg Tab) 50 mg PO Q12HR [facility] Last Admin: 05/11/20 07:38 Dose: 50 mg Documented by: Magnesium Oxide (Magnesium Oxide 400 Mg Tab) 400 mg PO BID [facility] Last Admin: 05/11/20 07:39 Dose: 400 mg Documented by: Metoprolol Succinate (Metoprolol Succinate 50 Mg Tab.Er) 100 mg PO BEDTIME [facility] Last Admin: 05/10/20 19:09 Dose: 100 mg Documented by: Metoprolol Succinate (Metoprolol Succinate 50 Mg Tab.Er) 50 mg PO DAILY [facility] Last Admin: 05/11/20 07:46 Dose: 50 mg Documented by: Multivitamins/Minerals (Beta-Carotene (Vitamin A) W/Vitamin C & E Plus Minerals Tab) 1 tab PO DAILY [facility] Last Admin: 05/11/20 07:39 Dose: 1 tab Documented by: Pantoprazole Sodium (Pantoprazole 40 Mg Vial) 40 mg IVPUSH Q12HR [facility] Last Admin: 05/11/20 07:40 Dose: 40 mg Documented by: Potassium Chloride (Potassium Chloride 20 Meq Tab.Er) 20 meq PO TID [facility] Last Admin: 05/11/20 07:40 Dose: 20 meq Documented by: Simvastatin (Simvastatin 20 Mg Tab) 20 mg PO BEDTIME [facility] Last Admin: 05/10/20 19:10 Dose: 20 mg Documented by: Sodium Chloride (Sodium Chloride 0.9% 10 Ml Syringe) 10 ml FLUSH ASDIRECTED PRN PRN Reason: PER FACILITY PROTOCOL Last Admin: 05/11/20 07:40 Dose: 10 ml Documented by: Sodium Chloride (Sodium Chloride 0.9% 10 Ml Syringe) 10 ml FLUSH ASDIRECTED PRN PRN Reason: Keep Vein Open Vancomycin HCl (Pharmacy To Dose - Vancomycin) 1 dose .XX ASDIRECTED [facility] Discontinued Medications Ceftriaxone Sodium 1 gm/ (Sodium Chloride) 100 mls @ 200 mls/hr IV ONETIME ONE Stop: 05/08/20 11:20 Last Admin: 05/08/20 11:47 Dose: 200 mls/hr Documented by: Potassium Chloride/Sodium Chloride (Normal Saline With 20 Meq Kcl) 1,000 mls @ 100 mls/hr IV ASDIRECTED [facility] Last Admin: 05/09/20 07:52 Dose: 100 mls/hr Documented by: Ceftriaxone Sodium 1 gm/ (Sodium Chloride) 100 mls @ 200 mls/hr IV Q24H [facility] Potassium Chloride/Sodium Chloride (Normal Saline With 20 Meq Kcl) 1,000 mls @ 80 mls/hr IV ASDIRECTED [facility] Last Admin: 05/09/20 11:48 Dose: 80 mls/hr Documented by: - Exam General: Alert, Oriented, Cooperative, No Acute Distress HEENT: Pupils Equal, Pupils Reactive, EOMI, Mucous Membr. Moist/[place] Neck: Supple Lungs: Clear to Auscultation, Normal Respiratory Effort Cardiovascular: Regular Rate, Regular Rhythm GI/Abdominal Exam: Normal Bowel Sounds, Soft, Non-Tender, No Distention (Female) Exam: Deferred Back Exam: No: CVA Tenderness (L), CVA Tenderness (R), Muscle Spasm, Paraspinal Tenderness, Vertebral Tenderness Extremities: Non-Tender, Normal Capillary Refill Skin: Warm, Dry Neurological: No New Focal Deficit Psy/Mental Status: Alert, Normal Affect, Normal Mood - Patient Data Lab Results Last 24 hrs: Laboratory Results - last 24 hr 05/11/20 05/11/20 05/11/20 Range/Units 07:16 07:16 07:16 WBC 7.8 (4.0-10.2) K/uL RBC 3.46 L (3.77-5.09) M/uL Hgb 10.2 L (11.7-15.5) g/dL Hct 30.1 L (34.0-46.0) % MCV 87.0 (84.0-98.0) fL MCH 29.5 (28.2-33.3) pg MCHC 33.9 (31.7-36.0) g/dL RDW 13.3 (11.2-14.1) % Plt Count 248 (150-350) K/uL Neut % (Auto) 70.1 (45.0-80.0) % Lymph % (Auto) 17.5 (10.0-50.0) % [place] % (Auto) 8.5 (2.0-14.0) % Eos % (Auto) 3.4 (0.0-5.0) % Baso % (Auto) 0.5 (0.0-2.0) % Neut # (Auto) 5.43 (1.40-7.00) K/uL Lymph # (Auto) 1.36 (0.50-3.50) K/uL [place] # (Auto) 0.66 (0.00-1.00) K/uL Eos # (Auto) 0.26 (0.00-0.50) K/uL Baso # (Auto) 0.04 (0.00-0.20) K/uL Sodium 135 L (136-145) mmol/L Potassium 3.4 L (3.5-5.1) mmol/L Chloride 99 (98-107) mmol/L Carbon Dioxide 28.7 (21.0-32.0) mmol/L BUN 5 L (7-18) mg/dL Creatinine 0.56 (0.51-1.17) mg/dL Est Cr Clr Drug Dosing 54.67 mL/min Estimated GFR (MDRD) > 60 mL/min Glucose 112 H (70-99) mg/dL Hemoglobin A1c (4.3-5.7) % Calcium 8.1 L (8.5-10.1) mg/dL Magnesium 2.0 (1.8-2.4) mg/dL Iron 52 (50-175) ug/dL TIBC 173 L (250-450) ug/dL % Saturation 30.37895 Ferritin 158 (8-388) ng/mL Vitamin B12 730 (193-986) pg/mL Folate 17.6 (8.6-58.9) ng/mL 05/11/20 Range/Units 07:16 WBC (4.0-10.2) K/uL RBC (3.77-5.09) M/uL Hgb (11.7-15.5) g/dL Hct (34.0-46.0) % MCV (84.0-98.0) fL MCH (28.2-33.3) pg MCHC (31.7-36.0) g/dL RDW (11.2-14.1) % Plt Count (150-350) K/uL Neut % (Auto) (45.0-80.0) % Lymph % (Auto) (10.0-50.0) % [place] % (Auto) (2.0-14.0) % Eos % (Auto) (0.0-5.0) % Baso % (Auto) (0.0-2.0) % Neut # (Auto) (1.40-7.00) K/uL Lymph # (Auto) (0.50-3.50) K/uL [place] # (Auto) (0.00-1.00) K/uL Eos # (Auto) (0.00-0.50) K/uL Baso # (Auto) (0.00-0.20) K/uL Sodium (136-145) mmol/L Potassium (3.5-5.1) mmol/L Chloride (98-107) mmol/L Carbon Dioxide (21.0-32.0) mmol/L BUN (7-18) mg/dL Creatinine (0.51-1.17) mg/dL Est Cr Clr Drug Dosing mL/min Estimated GFR (MDRD) mL/min Glucose (70-99) mg/dL Hemoglobin A1c 6.2 H (4.3-5.7) % Calcium (8.5-10.1) mg/dL Magnesium (1.8-2.4) mg/dL Iron (50-175) ug/dL TIBC (250-450) ug/dL % Saturation Ferritin (8-388) ng/mL Vitamin B12 (193-986) pg/mL Folate (8.6-58.9) ng/mL Result Diagrams: 05/11/20 07:16 05/11/20 07:16 Jameel Results Last 24 hrs: Microbiology 05/08/20 10:28 Aerobic Blood Culture - Preliminary Blood - Venous - Lab Draw NO GROWTH AFTER 3 DAYS Anaerobic Blood Culture - Final 05/08/20 10:20 Aerobic Blood Culture - Preliminary Blood - Venous NO GROWTH AFTER 3 DAYS Anaerobic Blood Culture - Final Escherichia Coli 05/10/20 14:29 Stool Occult Blood (JAMEEL) - Final Stool / Feces NEGATIVE OCCULT BLOOD REFERENCE RANGE: NEGATIVE 05/08/20 10:40 Urine Culture - Final Urine, Voided Escherichia Coli Sepsis Event Note - Evaluation Sepsis Screening Result: No Definite Risk - Focused Exam Vital Signs: Vital Signs Temp Pulse Pulse Resp BP BP 05/11/20 08:00 36.3 C 71 18 154/87 H 05/11/20 07:46 71 154/78 H 05/11/20 07:38 154/78 H - Problem List & Annotations (1) Sepsis SNOMED Code(s): 18249308 Code(s): A41.9 - SEPSIS, UNSPECIFIED ORGANISM Status: Acute Priority: High Current Visit: Yes Onset Date: 05/09/20 Qualifiers: Sepsis type: Escherichia coli Sepsis acute organ dysfunction status: without acute organ dysfunction Qualified Code(s): A41.51 - Sepsis due to Escherichia coli [E. coli] Annotation/Comment:: Urosepsis/E.Coli. Improving. Afebrile. Normal lactic acid. Sensitivity results show that she should do well with either of her current antibiotics. Will switch to single antibiotic at this time to avoid potential for C.Diff and other antibiotic associated negative effects which would be more risky if she is continued on Vanco. (2) Pyelonephritis SNOMED Code(s): 07248700 Code(s): N12 - TUBULO-INTERSTITIAL NEPHRITIS, NOT SPCF ACUTE OR CHRONIC Status: Acute Priority: High Current Visit: Yes Onset Date: ~05/08/20 Annotation/Comment:: E.Coli. As above. (3) Anemia SNOMED Code(s): 483846568 Code(s): D64.9 - ANEMIA, UNSPECIFIED Status: Acute Priority: Medium Current Visit: Yes Onset Date: 05/10/20 Qualifiers: Anemia type: unspecified type Qualified Code(s): D64.9 - Anemia, unspecified Annotation/Comment:: Progressive anemia likely secondary to rehydration effect with no evidence of acute GI bleed as above. Iron studies normal except for decreased TIBC. (4) Hypoalbuminemia SNOMED Code(s): 617024076 Code(s): E88.09 - OTH DISORDERS OF PLASMA-PROTEIN METABOLISM, NEC Status: Acute Priority: Medium Current Visit: Yes Onset Date: 05/10/20 Annotation/Comment:: Observe for now (5) Hypokalemia SNOMED Code(s): 26054220 Code(s): E87.6 - HYPOKALEMIA Status: Acute Priority: Medium Current Visit: Yes Onset Date: 05/08/20 Annotation/Comment:: Improving. Previous IV fluids as above with persistent hypokalemia. Oral potassium supplement initiated on 05/10 (6) Hyponatremia SNOMED Code(s): 29751951 Code(s): E87.1 - HYPO-OSMOLALITY AND HYPONATREMIA Status: Acute Priority: Medium Current Visit: Yes Onset Date: 05/08/20 Annotation/Comment:: Sodium improved on 05/10. Note IV fluids previously given as above. Observe for now. (7) CHF (congestive heart failure) SNOMED Code(s): 16545120 Code(s): I50.9 - HEART FAILURE, UNSPECIFIED Status: Chronic Priority: Medium Current Visit: Yes Qualifiers: Heart failure chronicity: chronic Annotation/Comment:: No clinical evidence of significant CHF. IV fluids decreas ed on 05/09/2020 as above. Continue to observe closely for now. Last echocardiogram on 07/20/2014 did show an excellent ejection fraction. Consider repeat echocardiogram on an outpatient basis depending on her clinical course. (8) COPD (chronic obstructive pulmonary disease) SNOMED Code(s): 45530904 Code(s): J44.9 - CHRONIC OBSTRUCTIVE PULMONARY DISEASE, UNSPECIFIED Status: Chronic Priority: Medium Current Visit: Yes Qualifiers: COPD type: emphysema Emphysema type: panlobular Qualified Code(s): J43.1 - Panlobular emphysema Annotation/Comment:: No current bronchitic-type symptoms, fever, etc. with stable chronic nonproductive cough. Patient does not require medications for her COPD currently. Consider PFTs in the future as needed. (9) Heart disease SNOMED Code(s): 81591245 Code(s): I51.9 - HEART DISEASE, UNSPECIFIED Status: Chronic Priority: High Current Visit: Yes Annotation/Comment:: No chest pain or anginal-type symptoms. Note previous history of CHF, cardiac arrhythmia, hyperlipidemia, and nonspecific syncopal episode in February 2014. Occasional PVCs noted in the ER and during the early phases of this hospitalization with additional PACs on 05/09 and 05/10/2020. Continue close observation for now. Note hypomagnesemia as below. (10) Hypertension SNOMED Code(s): 75362698 Code(s): I10 - ESSENTIAL (PRIMARY) HYPERTENSION Status: Chronic Priority: Medium Current Visit: Yes Qualifiers: Hypertension type: essential hypertension Qualified Code(s): I10 - Essential (primary) hypertension Annotation/Comment:: Blood pressures somewhat elevated on 05/10/2020 with further. Continue to observe closely with further medication adjustment during this hospitalization depending on her clinical course. (11) Osteoarthritis SNOMED Code(s): 326021401 Code(s): M19.90 - UNSPECIFIED OSTEOARTHRITIS, UNSPECIFIED SITE Status: Chronic Priority: Medium Current Visit: Yes Qualifiers: Osteoarthritis location: multiple joints Osteoarthritis type: primary Qualified Code(s): M89.49 - Other hypertrophic osteoarthropathy, multiple sites Annotation/Comment:: Stable during this hospitalization. Otherwise stable by history. (12) PAC (premature atrial contraction) SNOMED Code(s): 864870260 Code(s): I49.1 - ATRIAL PREMATURE DEPOLARIZATION Status: Chronic Priority: Medium Current Visit: Yes Annotation/Comment:: As above. Increased frequency on 05/09 and 05/10. Continue to observe closely for now. (13) PVCs (premature ventricular contractions) SNOMED Code(s): 23819196 Code(s): I49.3 - VENTRICULAR PREMATURE DEPOLARIZATION Status: Chronic Priority: Medium Current Visit: Yes Annotation/Comment:: PVCs in the emergency room and during the early phase of this hospitalization. Known history of PVCs, PACs, etc. as per emergency room note. Continue close observation for now. Note cardiac history as above, including nonsymptomatic borderline CHF. (14) Peptic reflux disease SNOMED Code(s): 976093272 Code(s): K21.9 - GASTRO-ESOPHAGEAL REFLUX DISEASE WITHOUT ESOPHAGITIS Status: Chronic Priority: Medium Current Visit: Yes Annotation/Comment:: Stable by patient history with no evidence of acute GI bleed despite progressive anemia as below. High-dose IV Pepcid and IV Protonix were initiated on 05/10 as a preventative measure. Hemoccult also ordered. - Problem List Review Problem List Initiated/Reviewed/Updated: Yes - Assessment Assessment:: As above - Plan Plan:: As above. Extensive precautions were given to the patient, who is in agreement with the treatment plan. The patient will require about 2 additional days of inpatient/acute care secondary to multiple health problems as above.
[2020-05-11] MEDS: Isosorbide Mononitrate 30 MG Tab.ER PO SCH (17:20)
[2020-05-11] MEDS: Simvastatin 20 MG Tab PO SCH (19:51)
[2020-05-11] MEDS: Acetaminophen 325 MG Tab PO PRN (21:55)
[2020-05-12] MEDS: Sodium Chloride 0.9% 10 ML Syringe FLUSH PRN ×3 (07:14→14:38)
[2020-05-12] MEDS: Pantoprazole 40 MG Vial IVPUSH SCH (07:14)
[2020-05-12] MEDS: Famotidine 20 MG/2 ML SDV IVPUSH SCH (07:14)
[2020-05-12] MEDS: Metoprolol Succinate 50 MG Tab.ER PO SCH (07:16)
[2020-05-12] MEDS: Magnesium Oxide 400 MG Tab PO SCH (07:16)
[2020-05-12] MEDS: Aspirin 81 MG Tab.EC PO SCH (07:17)
[2020-05-12] MEDS: cloNIDine 0.1 MG Tab PO SCH (07:17)
[2020-05-12] MEDS: Losartan 50 MG Tab PO SCH (07:17)
[2020-05-12] MEDS: Hydrochlorothiazide 25 MG Tab PO SCH (07:17)
[2020-05-12] MEDS: Potassium Chloride 20 MEQ Tab.ER PO SCH ×2 (07:18→12:32)
[2020-05-12 07:19] VITALS: PULSE 71
[2020-05-12] MEDS: cefTRIAXone 1 GM in Sodium Chloride 0.9% 100 ML IV SCH ×2 (07:19→08:22)
[2020-05-12 07:44] LABS: CHLORIDE,CL 97 mmol/L (98-107); SODIUM,NA 133 mmol/L (136-145)
[2020-05-12 09:32] VITALS: BP 151/65
--- NOTE | 2020-05-12 13:41 | PCM.DCSUM1 ---
Discharge Summary - Hospital Course Brief History: Admitted for treatment of pyelonephritis and sepsis. - Discharge Data Discharge Date: 05/12/20 Discharge Disposition: Home, Self-Care 01 Condition: Good - Referral to Home Health Primary Care Physician: SKYLER Broderick - Discharge Diagnosis/Problem(s) (1) Sepsis SNOMED Code(s): 85219958 ICD Code: A41.9 - SEPSIS, UNSPECIFIED ORGANISM Status: Acute Priority: High Current Visit: Yes Onset Date: 05/09/20 Problem Details: Urosepsis/E.Coli. Improved. Afebrile. Normal lactic acid. Sensitivity results showed that she should do well with either of her current antibiotics. Switched to single antibiotic to avoid potential for C.Diff and other antibiotic associated negative effects which would be more risky if continued on Vanco. Will continue daily Rocephin IV as outpatient for additional 3 days then continue on Septra for another 5 days Qualifiers: Sepsis type: Escherichia coli Sepsis acute organ dysfunction status: without acute organ dysfunction Qualified Code(s): A41.51 - Sepsis due to Escherichia coli [E. coli] (2) Pyelonephritis SNOMED Code(s): 12830522 ICD Code: N12 - TUBULO-INTERSTITIAL NEPHRITIS, NOT SPCF ACUTE OR CHRONIC Status: Acute Priority: High Current Visit: Yes Onset Date: ~05/08/20 Problem Details: E.Coli. As above. (3) Anemia SNOMED Code(s): 260270767 ICD Code: D64.9 - ANEMIA, UNSPECIFIED Status: Acute Priority: Medium Current Visit: Yes Onset Date: 05/10/20 Problem Details: Progressive anemia likely secondary to rehydration effect with no evidence of acute GI bleed as above. Iron studies normal except for decreased TIBC. Follow up with PCP Qualifiers: Anemia type: unspecified type Qualified Code(s): D64.9 - Anemia, unspecified (4) Hypoalbuminemia SNOMED Code(s): 372126876 ICD Code: E88.09 - OTH DISORDERS OF PLASMA-PROTEIN METABOLISM, NEC Status: Acute Priority: Medium Current Visit: Yes Onset Date: 05/10/20 Problem Details: Follow up with PCP (5) Hypokalemia SNOMED Code(s): 01101503 ICD Code: E87.6 - HYPOKALEMIA Status: Acute Priority: Medium Current Visit: Yes Onset Date: 05/08/20 Problem Details: Improving. Previous IV fluids as above with persistent hypokalemia. Oral potassium supplement initiate d on 05/10 (6) Hyponatremia SNOMED Code(s): 15877733 ICD Code: E87.1 - HYPO-OSMOLALITY AND HYPONATREMIA Status: Acute Priority: Medium Current Visit: Yes Onset Date: 05/08/20 Problem Details: Sodium improved on 05/10. Recheck labs next week at clinic (7) CHF (congestive heart failure) SNOMED Code(s): 30037726 ICD Code: I50.9 - HEART FAILURE, UNSPECIFIED Status: Chronic Priority: Medium Current Visit: Yes Problem Details: No clinical evidence of significant CHF. IV fluids decreased on 05/09/2020 as above. Last echocardiogram on 07/20/2014 did show an excellent ejection fraction. Consider repeat echocardiogram on an outpatient basis with PCP. Qualifiers: Heart failure chronicity: chronic (8) COPD (chronic obstructive pulmonary disease) SNOMED Code(s): 31018282 ICD Code: J44.9 - CHRONIC OBSTRUCTIVE PULMONARY DISEASE, UNSPECIFIED Status: Chronic Priority: Medium Current Visit: Yes Problem Details: No current bronchitic-type symptoms, fever, etc. with stable chronic nonproductive cough. Patient does not require medications for her COPD currently. Consider PFTs in the future as needed. Qualifiers: COPD type: emphysema Emphysema type: panlobular Qualified Code(s): J43.1 - Panlobular emphysema (9) Heart disease SNOMED Code(s): 86657238 ICD Code: I51.9 - HEART DISEASE, UNSPECIFIED Status: Chronic Priority: High Current Visit: Yes Problem Details: No chest pain or anginal-type symptoms. Note previous history of CHF, cardiac arrhythmia, hyperlipidemia, and nonspecific syncopal episode in February 2014. Occasional PVCs noted in the ER and during the early phases of this hospitalization with additional PACs on 05/09 and 05/10/2020. Note hypomagnesemia as below. (10) Hypertension SNOMED Code(s): 70318644 ICD Code: I10 - ESSENTIAL (PRIMARY) HYPERTENSION Status: Chronic Priority: Medium Current Visit: Yes Problem Details: Blood pressures somewhat elevated on 05/10/2020 with further. Continue to observe closely with further medication adjustment during this hospitalization depending on her clinical course. Qualifiers: Hypertension type: essential hypertension Qualified Code(s): I10 - Ess ential (primary) hypertension (11) Osteoarthritis SNOMED Code(s): 744095893 ICD Code: M19.90 - UNSPECIFIED OSTEOARTHRITIS, UNSPECIFIED SITE Status: Chronic Priority: Medium Current Visit: Yes Problem Details: Stable during this hospitalization. Otherwise stable by history. 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 Increased frequency on 05/09 and 05/10. Continue to observe closely for now. (13) PVCs (premature ventricular contractions) SNOMED Code(s): 02341429 ICD Code: I49.3 - VENTRICULAR PREMATURE DEPOLARIZATION Status: Chronic Priority: Medium Current Visit: Yes Problem Details: PVCs in the emergency room and during the early phase of this hospitalization. Known history of PVCs, PACs, etc. as per emergency room note. Note cardiac history as above, including nonsymptomatic borderline CHF. (14) Peptic reflux disease SNOMED Code(s): 458113321 ICD Code: K21.9 - GASTRO-ESOPHAGEAL REFLUX DISEASE WITHOUT ESOPHAGITIS Status: Chronic Priority: Medium Current Visit: Yes Problem Details: Stable by patient history with no evidence of acute GI bleed despite progressive anemia as below. High-dose IV Pepcid and IV Protonix were initiated on 05/10 as a preventative measure. Hemoccult negative. - Patient Summary/Data Hospital Course: Patient responded well to IV Rocephin/Vanco. Culture + for E Coli in both blood and urine. Improved electrolytes noted. WBC normalized. Patient switched to just Rocephin after culture results/sensitivity finalized. OK to go home today with further daily doses of Rocephin for additional 3 days as outpatient. - Patient Instructions Diet: Usual Diet as Tolerated Activity: As Tolerated Driving: May Drive Today Showering/Bathing: May Shower Notify Provider of: Fever, Increased Pain, Nausea and/or Vomiting Other/Special Instructions: Return for IV antibiotics daily tomorrow, Saturday, and Saturday. On Saturday start Septra for 5 days. Follow up next week at clinic for recheck of urine and CBC/metabolic profile. See if your Sodium and Potassium levels are doing well and in good range. You may need to adjust the Potassium dose. We also have you starting Magnesium. It is recommended that you locate Magnesium Glycinate and start taking 250mg daily of this. Get Magnesium level rechecked periodically and adjust supplement as needed, but anticipate being on Magnesium roasterman. Check your blood pressure at home. We started you on several new medications but these too may need adjustment. It is best to keep a diary of your readings to look at trends and try to check it 3 times a day for now. Return to the ER if you start having worsening symptoms again. - Discharge Plan *PRESCRIPTION DRUG MONITORING PROGRAM REVIEWED*: Not Applicable *COPY OF PRESCRIPTION DRUG MONITORING REPORT IN PATIENT [facility]: Not Applicable Prescriptions/Med Rec: Isosorbide Mononitrate [Imdur] 30 mg PO QPM #30 tab.er Potassium Chloride [Klor-Con M20] 20 meq PO DAILY #30 tab.er Magnesium Oxide 400 mg PO BID #60 tablet Home Medications: Home Meds Aspirin [Halfprin] 81 mg PO DAILY #0 07/09/14 [Rx] Simvastatin 20 mg PO BEDTIME 07/09/14 [History] Docusate Sodium 100 mg PO DAILY PRN 06/06/15 [History] cloNIDine [Catapres] 0.1 mg PO Q12HR 06/08/19 [History] Losartan [Cozaar] 50 mg PO Q12HR 05/08/20 [History] Metoprolol Succinate [Toprol XL 100mg] 50 mg PO DAILY 05/08/20 [History] Metoprolol Succinate [Toprol Xl] 100 mg PO BEDTIME 05/08/20 [History] hydroCHLOROthiazide [Hydrochlorothiazide] 50 mg PO DAILY 05/08/20 [History] Non-Formulary Medication [NF Drug] 1 each PO DAILY 05/11/20 [History] Isosorbide Mononitrate [Imdur] 30 mg PO QPM #30 tab.er 05/12/20 [Rx] Magnesium Oxide 400 mg PO BID #60 tablet 05/12/20 [Rx] Potassium Chloride [Klor-Con M20] 20 meq PO DAILY #30 tab.er 05/12/20 [Rx] Sulfamethoxazole/Trimethoprim [Septra DS] 1 each PO BID #10 tab 05/12/20 [Rx] Forms: ED Department Discharge Referrals: Margarita Isaac PA [Primary Care Provider] - - Discharge Summary/Plan Comment DC Time >30 min.: No - General Info Date of Service: 05/12/20 Admission Dx/Problem (Free Text: 1. Pyelonephritis 2. UTI Subjective Update: No acute complaints. Patient feels back to baseline Functional Status: Reports: Pain Controlled, Tolerating Diet, Ambulating, Urinating. Denies: New Symptoms - Review of Systems General: Reports: No Symptoms HEENT: Denies: Headaches, Sinus Congestion, Sore Throat, Visual Changes Pulmonary: Reports: No Symptoms Cardiovascular: Reports: No Symptoms Gastrointestinal: Reports: No Symptoms Genitourinary: Reports: No Symptoms Musculoskeletal: Reports: Other (no acute changes from baseline) Skin: Reports: No Symptoms Neurological: Reports: No Symptoms Psychiatric: Reports: No Symptoms - Patient Data Vitals - Most Recent: Last Vital Signs Temp 36.5 C 05/12/20 07:18 Pulse 71 05/12/20 07:18 Resp 16 05/12/20 07:18 BP 151/65 H 05/12/20 09:15 Pulse Ox 96 05/12/20 07:18 Weight - Most Recent: 63.049 kg I&O - Last 24 hours: Intake & Output 05/11/20 05/12/20 05/12/20 22:59 06:59 14:59 Intake Total 360 Output Total 300 Balance -300 360 Lab Results - Last 24 hrs: Laboratory Results - last 24 hr 05/12/20 05/12/20 05/12/20 Range/Units 06:30 07:05 07:05 WBC 7.4 (4.0-10.2) K/uL RBC 3.84 (3.77-5.09) M/uL Hgb 11.0 L (11.7-15.5) g/dL Hct 33.3 L (34.0-46.0) % MCV 86.7 (84.0-98.0) fL MCH 28.6 (28.2-33.3) pg MCHC 33.0 (31.7-36.0) g/dL RDW 13.2 (11.2-14.1) % Plt Count 325 D (150-350) K/uL Neut % (Auto) 66.1 (45.0-80.0) % Lymph % (Auto) 20.0 (10.0-50.0) % Harper % (Auto) 8.2 (2.0-14.0) % Eos % (Auto) 5.2 H (0.0-5.0) % Baso % (Auto) 0.5 (0.0-2.0) % Neut # (Auto) 4.87 (1.40-7.00) K/uL Lymph # (Auto) 1.47 (0.50-3.50) K/uL Harper # (Auto) 0.60 (0.00-1.00) K/uL Eos # (Auto) 0.38 (0.00-0.50) K/uL Baso # (Auto) 0.04 (0.00-0.20) K/uL Sodium 133 L (136-145) mmol/L Potassium 4.1 (3.5-5.1) mmol/L Chloride 97 L (98-107) mmol/L Carbon Dioxide 30.0 (21.0-32.0) mmol/L BUN 5 L (7-18) mg/dL Creatinine 0.61 (0.51-1.17) mg/dL Est Cr Clr Drug Dosing 50.19 mL/min Estimated GFR (MDRD) > 60 mL/min Glucose 115 H (70-99) mg/dL Calcium 8.9 (8.5-10.1) mg/dL Specimen Type Urinvoid Urine Color Yellow Urine Appearance Clear Urine pH 8.0 (5.0-9.0) Ur Specific [place] 1.015 (1.005-1.030) Urine Protein Negative (NEGATIVE) mg/dL Urine Glucose (UA) Negative (NEGATIVE) mg/dL Urine Ketones Negative (NEGATIVE) mg/dL Urine Occult Blood Negative (NEGATIVE) Urine Nitrite Negative (NEGATIVE) Urine Bilirubin Negative (NEGATIVE) Urine Urobilinogen 0.2 (0.2-1.0) E.U./dL Ur Leukocyte Esterase Negative (NEGATIVE) Urine RBC 0-5 /HPF Urine WBC 5-10 H /HPF Ur Epithelial Cells Few /LPF Urine Bacteria Rare (NONE TO FEW) /HPF SHANELL Results - Last 24 hrs: Microbiology 05/08/20 10:20 Aerobic Blood Culture - Preliminary Blood - Venous NO GROWTH AFTER 4 DAYS Anaerobic Blood Culture - Final Escherichia Coli 05/08/20 10:28 Aerobic Blood Culture - Preliminary Blood - Venous - Lab Draw NO GROWTH AFTER 4 DAYS Anaerobic Blood Culture - Final Med Orders - Current: Current Medications Acetaminophen (Acetaminophen 325 Mg Tab) 650 mg PO Q4H PRN PRN Reason: analgesia/fever Last Admin: 05/11/20 21:55 Dose: 650 mg Documented by: Aspirin (Aspirin 81 Mg Tab.Ec) 81 mg PO DAILY [facility] Last Admin: 05/12/20 07:17 Dose: 81 mg Documented by: Bisacodyl (Bisacodyl 10 Mg Supp) 10 mg RECTAL DAILY PRN PRN Reason: Constipation Clonidine HCl (Clonidine 0.1 Mg Tab) 0.1 mg PO Q12HR [facility] Last Admin: 05/12/20 07:17 Dose: 0.1 mg Documented by: Docusate Sodium (Docusate Sodium 100 Mg Cap) 100 mg PO DAILY PRN PRN Reason: Constipation Famotidine (Famotidine 20 Mg/2 Ml Sdv) 20 mg IVPUSH DAILY [facility] Last Admin: 05/12/20 07:14 Dose: 20 mg Documented by: Hydrochlorothiazide (Hydrochlorothiazide 25 Mg Tab) 50 mg PO DAILY [facility] Last Admin: 05/12/20 07:17 Dose: 50 mg Documented by: Ceftriaxone Sodium 1 gm/ (Sodium Chloride) 100 mls @ 200 mls/hr IV Q12H [facility] Last Admin: 05/12/20 08:22 Dose: Not Given Documented by: Isosorbide Mononitrate (Isosorbide Mononitrate 30 Mg Tab.Er) 30 mg PO QPM [facility] Last Admin: 05/11/20 17:20 Dose: 30 mg Documented by: Losartan Potassium (Losartan 50 Mg Tab) 50 mg PO Q12HR [facility] Last Admin: 05/12/20 07:17 Dose: 50 mg Documented by: Magnesium Oxide (Magnesium Oxide 400 Mg Tab) 400 mg PO BID [facility] Last Admin: 05/12/20 07:16 Dose: 400 mg Documented by: Metoprolol Succinate (Metoprolol Succinate 50 Mg Tab.Er) 100 mg PO BEDTIME [facility] Last Admin: 05/11/20 19:51 Dose: 100 mg Documented by: Metoprolol Succinate (Metoprolol Succinate 50 Mg Tab.Er) 50 mg PO DAILY [facility] Last Admin: 05/12/20 07:16 Dose: 50 mg Documented by: Pantoprazole Sodium (Pantoprazole 40 Mg Vial) 40 mg IVPUSH Q12HR [facility] Last Admin: 05/12/20 07:14 Dose: 40 mg Documented by: Potassium Chloride (Potassium Chloride 20 Meq Tab.Er) 20 meq PO TID [facility] Last Admin: 05/12/20 12:32 Dose: 20 meq Documented by: Simvastatin (Simvastatin 20 Mg Tab) 20 mg PO BEDTIME [facility] Last Admin: 05/11/20 19:51 Dose: 20 mg Documented by: Sodium Chloride (Sodium Chloride 0.9% 10 Ml Syringe) 10 ml FLUSH ASDIRECTED PRN PRN Reason: PER FACILITY PROTOCOL Last Admin: 05/12/20 07:21 Dose: 10 ml Documented by: Sodium Chloride (Sodium Chloride 0.9% 10 Ml Syringe) 10 ml FLUSH ASDIRECTED PRN PRN Reason: Keep Vein Open Discontinued Medications Ceftriaxone Sodium 1 gm/ (Sodium Chloride) 100 mls @ 200 mls/hr IV ONETIME ONE Stop: 05/08/20 11:20 Last Admin: 05/08/20 11:47 Dose: 200 mls/hr Documented by: Potassium Chloride/Sodium Chloride (Normal Saline With 20 Meq Kcl) 1,000 mls @ 100 mls/hr IV ASDIRECTED [facility] Last Admin: 05/09/20 07:52 Dose: 100 mls/hr Documented by: Ceftriaxone Sodium 1 gm/ (Sodium Chloride) 100 mls @ 200 mls/hr IV Q24H [facility] Potassium Chloride/Sodium Chloride (Normal Saline With 20 Meq Kcl) 1,000 mls @ 80 mls/hr IV ASDIRECTED [facility] Last Admin: 05/09/20 11:48 Dose: 80 mls/hr Documented by: Vancomycin HCl 1 gm/ Sodium (Chloride) 250 mls @ 165 mls/hr IV Q24H [facility] Last Admin: 05/11/20 13:19 Dose: Not Given Documented by: Multivitamins/Minerals (Beta-Carotene (Vitamin A) W/Vitamin C & E Plus Minerals Tab) 1 tab PO DAILY [facility] Last Admin: 05/11/20 07:39 Dose: 1 tab Documented by: Vancomycin HCl (Pharmacy To Dose - Vancomycin) 1 dose .XX ASDIRECTED [facility] - Exam General: Reports: Alert, Oriented, Cooperative, No Acute Distress HEENT: Reports: Pupils Equal, Pupils Reactive, EOMI, Mucous Membr. Moist/[place] Neck: Reports: Supple Lungs: Reports: Clear to Auscultation, Normal Respiratory Effort Cardiovascular: Reports: Regular Rate, Regular Rhythm GI/Abdominal Exam: Normal Bowel Sounds, Soft, Non-Tender, No Distention (Female) Exam: Deferred Rectal (Female) Exam: Deferred Back Exam: Reports: Normal Inspection, Full Range of Motion Extremities: Normal Range of Motion, Non-Tender, Normal Capillary Refill Skin: Reports: Warm, Dry Neurological: Reports: No New Focal Deficit Psy/Mental Status: Reports: Alert, Normal Affect, Normal Mood
== END 2020-05-12 14:50 | disposition home or self-care (01) | DRG 872 ==
LOC: LL.ED 10:03 → LL.MS 11:05
PROVIDERS: ADMIT Family Medicine; ATTEND Family Medicine
DX: N12 Tubulo-interstitial nephritis, not specified as acute or chronic (principal); A41.51 Sepsis due to Escherichia coli [E. coli]; N10 Acute pyelonephritis; E87.1 Hypo-osmolality and hyponatremia; D64.9 Anemia, unspecified; E88.09 Other disorders of plasma-protein metabolism, not elsewhere classified; E87.6 Hypokalemia; I50.9 Heart failure, unspecified; J43.1 Panlobular emphysema; I45.10 Unspecified right bundle-branch block; E83.42 Hypomagnesemia; Z20.822 Contact with and (suspected) exposure to COVID-19; I11.0 Hypertensive heart disease with heart failure; M89.49 Other hypertrophic osteoarthropathy, multiple sites; I49.3 Ventricular premature depolarization; I49.1 Atrial premature depolarization; M19.90 Unspecified osteoarthritis, unspecified site; E78.5 Hyperlipidemia, unspecified; K21.9 Gastro-esophageal reflux disease without esophagitis; H54.7 Unspecified visual loss; J30.9 Allergic rhinitis, unspecified; H40.9 Unspecified glaucoma; E78.00 Pure hypercholesterolemia, unspecified; K59.09 Other constipation; K44.9 Diaphragmatic hernia without obstruction or gangrene; M81.0 Age-related osteoporosis without current pathological fracture; M54.2 Cervicalgia; M54.9 Dorsalgia, unspecified; G89.29 Other chronic pain; R32 Unspecified urinary incontinence; N32.81 Overactive bladder; Z88.0 Allergy status to penicillin; Z79.82 Long term (current) use of aspirin; Z79.899 Other long term (current) drug therapy; Z98.41 Cataract extraction status, right eye; Z98.42 Cataract extraction status, left eye
CPT/HCPCS: 36415; 71046; 80048; 80053; 81001; 82272; 82607; 82728; 82746; 83036; 83540; 83550; 83605; 83735; 85025; 87040; 87077; 87086; 87088; 87186; 99221; 99232; 99238; 99285-25; A9270-GY; C9113; J0696; J3370; J3480; J3490; J7050; U0002

== ENCOUNTER 2020-10-10 17:17 | Inpatient (IN) | payer MEDICARE, OTHER ==
--- NOTE | 2020-10-10 18:09 | EDM.PDOC ---
ED HPI GENERAL MEDICAL PROBLEM - General Chief Complaint: General Stated Complaint: weakness, general complaints Time Seen by Provider: 10/10/20 17:45 Source of Information: Reports: Patient, Family History Limitations: Reports: No Limitations, Other (struggles to explain her complaints and why she does not feel well) - History of Present Illness INITIAL COMMENTS - FREE TEXT/NARRATIVE: Patient presents to the Ed for feeling unwell. She is accompanied by her daughter that lives next door and sees her daily. Patient tells me that she has not " been right" since she was septic from a UTI in April. She further states she has been weak but lives at home with her and managing to get around some. SHe states about 2 weaks ago she accidentally kicked a piece of furniture in the night and hurt her right toes. It caused her to fall to the right side. She did not think that she was hurt in the fall. Managed to get up and get back to bed. She noted some right side and lower back pain after this and went to her provider. Had some routine lab work and was placed on prednisone 20 mg daily for 5 days. She also went to the chiropractor and had an adjustment. She felt that the adjustment helped, but did not think she got better from the steroids She never heard on her blood work until a few days ago when she received a letter in the mail telling her that they were normal. In the last week she has progressive felt more unwell. She gets up from bed but spends most of the day laying around, in a chair or on the couch. limited eating. Has felt warm but no documented temp, no chills, has had nausea and some vomiting of food but not always. headaches, cough with white sputum. normal bowel movements. No other pain other than the toes on the right foot and the low back. Aspirin helps the pain and has taken some so no pain now. Today she asked her daughter to bring her in due to the multiple complaints. Takes blood pressure medication only Onset: Unknown/Unsure Duration: Getting Worse Associated Symptoms: Reports: Cough, Headaches, Loss of Appetite, Malaise, Nausea/Vomiting, Weakness Treatments FIRE MEDIC: Reports: Aspirin - Related Data Allergies Allergy/AdvReac Type Severity Reaction Status Date / Time Penicillins Allergy Syncope Verified 10/10/20 17:18 Home Meds: Home Meds Aspirin [Halfprin] 81 mg PO DAILY #0 07/09/14 [Rx] Simvastatin 20 mg PO BEDTIME 07/09/14 [History] Docusate Sodium 100 mg PO DAILY PRN 06/06/15 [History] cloNIDine [Catapres] 0.1 mg PO Q12HR 06/08/19 [History] Losartan [Cozaar] 50 mg PO Q12HR 05/08/20 [History] Metoprolol Succinate [Toprol XL 100mg] 50 mg PO DAILY 05/08/20 [History] Metoprolol Succinate [Toprol Xl] 100 mg PO BEDTIME 05/08/20 [History] hydroCHLOROthiazide [Hydrochlorothiazide] 50 mg PO DAILY 05/08/20 [History] Non-Formulary Medication [NF Drug] 1 each PO DAILY 05/11/20 [History] Magnesium Oxide 400 mg PO BID #60 tablet 05/12/20 [Rx] Potassium Chloride [Klor-Con M20] 20 meq PO DAILY #30 tab.er 05/12/20 [Rx] Sodium Chloride 1 tab PO QID 10/10/20 [History] Past Medical History HEENT History: Reports: Allergic Rhinitis, Cataract, Glaucoma, Impaired Vision, Other (See Below) Other HEENT History: No medications required for her allergic rhinitis. A, resolved with previous laser treatments at time of cataract surgery as below. Patient does wear glasses. Cardiovascular History: Reports: Arrhythmia, Heart Failure, High Cholesterol, Hypertension, Syncope, Other (See Below) Other Cardiovascular History: Borderline incomplete right bundle branch block, PVCs, and PVCs. Syncope in February 2014. Respiratory History: Reports: Bronchitis, Recurrent, COPD, Intubation, Previous, Other (See Below) Other Respiratory History: Stable pulmonary nodules by CT scan. Gastrointestinal History: Reports: Chronic Constipation, GERD, Hiatal Hernia, Other (See Below) Other Gastrointestinal History: Large hiatal hernia by CT scan. Genitourinary History: Reports: Urinary Incontinence, Other (See Below) Other Genitourinary History: Overactive bladder SENIOR ASSISTANT MANAGER History: Reports: Other SENIOR ASSISTANT MANAGER History: Menopause in her early 40s. Full term without complications during pregnancies or deliveries with exception of one full-term stillborn. Musculoskeletal History: Reports: Arthritis, Back Pain, Chronic, Fracture, Neck Pain, Chronic, Osteoarthritis, Osteoporosis, Other (See Below) Other Musculoskeletal History: Right wrist fracture in her 30s. Neurological History: Reports: None Psychiatric History: Reports: None Endocrine/Metabolic History: Reports: Hypokalemia Hematologic History: Reports: None Immunologic History: Reports: None Oncologic (Cancer) History: Reports: None Dermatologic History: Reports: None - Infectious Disease History Infectious Disease History: Reports: Chicken Pox, Measles, Mumps - Past Surgical History Head Surgeries/Procedures: Reports: None HEENT Surgical History: Reports: Cataract Surgery, Other (See Below) Other HEENT Surgeries/Procedures: Bilateral cataract surgery in 2001 with concomitant laser treatments for her glaucoma. My molar in the with additional multiple teeth extractions and implants. GI Surgical History: Reports: Colonoscopy, EGD, Other (See Below) Other GI Surgeries/Procedures: Last colonoscopy on 11/18/14 with previous colonoscopy in 2004. EGD in 2009. Female Surgical History: Reports: Tubal Ligation, Other (See Below) Other Female Surgeries/Procedures: Tubal ligation at age 46. Endometrial biopsy at about age 41. Musculoskeletal Surgical History: Reports: Shoulder Surgery Other Musculoskeletal Surgeries/Procedures:: Right foot bunionectomy with concomitant fourth and fifth hammertoe revision on 09/10/02. Left rotator cuff repair in 2005. - Past Imaging History Past Imaging History: Reports: Cardiac Echo (07/20/14 with ejection fraction of 6065 percent.), CAT Scan (CT of the brain on 05/17/15 and 03/29/14. CT of the chest with IV contrast on 04/19/16 and 11/12/14. Previous serial CTs of the chest on 06/30/13, 06/25/08, etc.), DEXA Scan (10/11/14), Mammogram (Last on 12/24/18.), MRA (MRA/MRI of the head and neck on 06/06/15.), MRI (Right shoulder on 12/17/16.), Stress Testing (Negative Cardiolite stress test on 05/26/15 with ejection fraction of 90%. Previous Cardiolite stress test on 03/11/08 with ejection fraction of 61%.) Social & Family History - Tobacco Use Tobacco Use Status *Q: Never Tobacco User - Caffeine Use Caffeine Use: Reports: Coffee (12 cups per day), Tea (Occasional) - Recreational Drug Use Recreational Drug Use: No Drug Use in Last 12 Months: No - Living Situation & Occupation Living situation: Reports: ([birth year], 5 children), with Family Occupation: Retired (From the [employer]) ED ROS GENERAL - Review of Systems Review Of Systems: See Below Constitutional: Reports: Fever, Malaise, Weakness, Fatigue, Decreased Appetite. Denies: Chills, Night Sweats, Diaphoresis HEENT: Reports: No Symptoms. Denies: Dental Pain, Eye Pain, Rhinitis, Sinus Problem, Throat Pain, Throat Swelling Respiratory: Reports: Cough, Sputum. Denies: Shortness of Breath, Wheezing, Pleuritic Chest Pain Cardiovascular: Reports: Lightheadedness, Palpitations. Denies: Chest Pain, Blood Pressure Problem, Claudication, Dyspnea on Exertion, Edema Endocrine: Reports: Fatigue GI/Abdominal: Reports: No Symptoms, Anorexia, Decreased Appetite, Nausea, Vomiting. Denies: Abdominal Pain, Black Stool, Diarrhea, Difficulty Swallowing, Flatus, Hematemesis, Hematochezia : Reports: No Symptoms. Denies: Discharge, Dysuria, Frequency, Hematuria, Urgency Musculoskeletal: Reports: Other (muscle aches, right toe pain x several, lower back pain) Skin: Reports: No Symptoms. Denies: Jaundice, Bruising, Rash, Wound, Burn(s) Neurological: Reports: Dizziness (intermittant, nothing seems to bring it on or change it), Headache, Weakness. Denies: Numbness, Paresthesia, Seizure, Syncope, Tingling, Trouble Speaking, Difficulty Walking, Change in Speech, Gait Disturbance Hematologic/Lymphatic: Reports: No Symptoms. Denies: Anemia, Easy Bleeding, Easy Bruising ED EXAM, GENERAL - Physical Exam Exam: See Below Exam Limited By: No Limitations General Appearance: Alert, WD/WN, No Apparent Distress Eye Exam: Bilateral Eye: EOMI, Normal Inspection, PERRL Ears: Normal External Exam, Normal Canal, Hearing Grossly Normal, Normal TMs Nose: Normal Inspection, Normal Mucosa, No Blood Throat/Mouth: Normal Inspection, Normal Lips, Normal Teeth, Normal Oropharynx, Normal Voice, No Airway Compromise, Other (dentures noted) Head: Atraumatic, Normocephalic Neck: Normal Inspection, Supple, Non-Tender, Full Range of Motion. No: Limited Range of Motion Respiratory/Chest: No Respiratory Distress, Lungs Clear, Normal Breath Sounds, No Accessory Muscle Use, Chest Non-Tender. No: Respiratory Distress, Decreased Breath Sounds, Crackles, Rales, Accessory Muscle Use Cardiovascular: Normal Peripheral Pulses, Irregularly Irregular (sinus arrythmia) GI/Abdominal: Normal Bowel Sounds, Soft, Non-Tender, No Distention, No Abnormal Bruit, No Mass Back Exam: Normal Inspection, Full Range of Motion, Other (no pain to palpation of the entire back no lesions or rashes). No: CVA Tenderness (L), CVA Tenderness (R), Decreased Range of Motion, Muscle Spasm, Paraspinal Tenderness, Vertebral Tenderness Extremities: Normal Range of Motion, No Pedal Edema, Normal Capillary Refill, Other (toes 2-4 right foot with some tenderness to touch, echymosis noted. no pain to movement of the rest of her arms, and legs, no pain to internal or external rotation of the hips. ) Neurological: Alert, Oriented, CN II-XII Intact, Normal Cognition, No Motor/Sensory Deficits, Other (no nystagmus, negative pronator drift. normal finger to nose with eyes closed, normal loan review manager strength in the upper extremities, normal strength in the lower extremities normal heel to genao, normal speech) #1 Interpretation EKG Date: 10/10/20 Time: 18:04 Rhythm: Other (sinus arrythmia) [place]: Normal P-Wave: Present QRS: Normal ST-T: Normal QT: Normal (note history of rhythm strip with arrthymia similiar, no ekg noted) Course - Vital Signs Last Recorded V/S: Last Vital Signs Temp 36.7 C 10/10/20 17:20 Pulse 93 10/10/20 17:36 Resp 15 10/10/20 17:36 BP 169/79 H 10/10/20 17:36 Pulse Ox 98 10/10/20 17:36 - Orders/Labs/Meds Orders: Active Orders 24 hr Category Date Time Status Admission Status [Patient Status] [ADT] Routine ADT 10/10/20 18:59 Active EKG Documentation Completion [RC] ASDIRECTED Care 10/10/20 17:53 Active Peripheral IV Care [RC] . DIRECTED Care 10/10/20 18:31 Active Chest 2V [CR] Stat Exams 10/10/20 17:51 Ordered Head wo Cont [CT] Stat Exams 10/10/20 17:53 Taken Lumbar Spine 2 or 3V [CR] Stat Exams 10/10/20 17:51 Ordered Toes Multiple Rt [CR] Stat Exams 10/10/20 17:51 Taken CULTURE BLOOD [BC] Stat Lab 10/10/20 18:47 Received CULTURE BLOOD [BC] Stat Lab 10/10/20 19:00 Received CULTURE URINE [RM] Stat Lab 10/10/20 19:30 Received D5 1/2 NS w/ 40 mEq/L KCl 1,000 ml Med 10/10/20 18:45 Active IV ASDIRECTED Sodium Chloride 0.9% [Saline Flush] Med 10/10/20 18:30 Active 10 ml FLUSH ASDIRECTED PRN Sodium Chloride 3% 500 ml Med 10/10/20 18:30 Active IV ASDIRECTED Blood Culture x2 Reflex Set [OM.PC] Stat Oth 10/10/20 18:37 Ordered Peripheral IV Insertion Adult [OM.PC] Routine Oth 10/10/20 18:30 Ordered Medication Orders Sodium Chloride (Sodium Chloride 3%) 500 mls @ 15 mls/hr IV ASDIRECTED DENISSE Last Admin: 10/10/20 19:13 Dose: 15 mls/hr Documented by: ALANA Potassium Chloride/Dextrose/Sod Cl (D5 1/2 Ns W/ 40 Meq/L Kcl) 1,000 mls @ 200 mls/hr IV ASDIRECTED DENISSE Last Admin: 10/10/20 19:07 Dose: 200 mls/hr Documented by: ALANA Ceftriaxone Sodium 1 gm/ (Sodium Chloride) 100 mls @ 200 mls/hr IV Q24H [facility] Sodium Chloride (Sodium Chloride 0.9% 10 Ml Syringe) 10 ml FLUSH ASDIRECTED PRN PRN Reason: Keep Vein Open Labs: Laboratory Tests 10/10/20 10/10/20 10/10/20 Range/Units 17:55 18:00 18:00 WBC 14.5 H (4.0-10.2) K/uL RBC 4.79 (3.77-5.09) M/uL Hgb 14.0 D (11.7-15.5) g/dL Hct 38.6 (34.0-46.0) % MCV 80.6 L D (84.0-98.0) fL MCH 29.2 (28.2-33.3) pg MCHC 36.3 H (31.7-36.0) g/dL RDW 13.0 (11.2-14.1) % Plt Count 388 H D (150-350) K/uL Neut % (Auto) 78.9 (45.0-80.0) % Lymph % (Auto) 13.5 (10.0-50.0) % [place] % (Auto) 7.3 (2.0-14.0) % Eos % (Auto) 0.1 (0.0-5.0) % Baso % (Auto) 0.2 (0.0-2.0) % Neut # (Auto) 11.43 H (1.40-7.00) K/uL Lymph # (Auto) 1.95 (0.50-3.50) K/uL [place] # (Auto) 1.05 H (0.00-1.00) K/uL Eos # (Auto) 0.01 (0.00-0.50) K/uL Baso # (Auto) 0.03 (0.00-0.20) K/uL Sodium 117 L* (136-145) mmol/L Potassium 3.1 L (3.5-5.1) mmol/L Chloride 82 L (98-107) mmol/L Carbon Dioxide 28.7 (21.0-32.0) mmol/L Anion Gap 9.4 (7-15) meq/L BUN 12 (7-18) mg/dL Creatinine 0.79 (0.51-1.17) mg/dL Est Cr Clr Drug Dosing TNP Estimated GFR (MDRD) > 60 mL/min Glucose 146 H (70-99) mg/dL Lactic Acid (0.4-2.0) mmol/L Calcium 8.4 L (8.5-10.1) mg/dL Magnesium (1.8-2.4) mg/dL Total Bilirubin 0.6 (0.2-1.0) mg/dL AST 12 L (15-37) U/L ALT 16 (12-78) U/L Alkaline Phosphatase 103 (46-116) IU/L Troponin I High Sens 10 (<=51) ng/L C-Reactive Protein 0.6 (<=0.9) mg/dL Total Protein 7.1 (6.4-8.2) g/dL Albumin 3.4 (3.4-5.0) g/dL Lipase 103 (73-393) U/L SARS-CoV-2 RNA (MYRIAM) Negative (NEGATIVE) 10/10/20 10/10/20 Range/Units 18:00 18:00 WBC (4.0-10.2) K/uL RBC (3.77-5.09) M/uL Hgb (11.7-15.5) g/dL Hct (34.0-46.0) % MCV (84.0-98.0) fL MCH (28.2-33.3) pg MCHC (31.7-36.0) g/dL RDW (11.2-14.1) % Plt Count (150-350) K/uL Neut % (Auto) (45.0-80.0) % Lymph % (Auto) (10.0-50.0) % [place] % (Auto) (2.0-14.0) % Eos % (Auto) (0.0-5.0) % Baso % (Auto) (0.0-2.0) % Neut # (Auto) (1.40-7.00) K/uL Lymph # (Auto) (0.50-3.50) K/uL [place] # (Auto) (0.00-1.00) K/uL Eos # (Auto) (0.00-0.50) K/uL Baso # (Auto) (0.00-0.20) K/uL Sodium (136-145) mmol/L Potassium (3.5-5.1) mmol/L Chloride (98-107) mmol/L Carbon Dioxide (21.0-32.0) mmol/L Anion Gap (7-15) meq/L BUN (7-18) mg/dL Creatinine (0.51-1.17) mg/dL Est Cr Clr Drug Dosing Estimated GFR (MDRD) mL/min Glucose (70-99) mg/dL Lactic Acid 1.3 (0.4-2.0) mmol/L Calcium (8.5-10.1) mg/dL Magnesium 1.8 (1.8-2.4) mg/dL Total Bilirubin (0.2-1.0) mg/dL AST (15-37) U/L ALT (12-78) U/L Alkaline Phosphatase (46-116) IU/L Troponin I High Sens (<=51) ng/L C-Reactive Protein (<=0.9) mg/dL Total Protein (6.4-8.2) g/dL Albumin (3.4-5.0) g/dL Lipase (73-393) U/L SARS-CoV-2 RNA (MYRIAM) (NEGATIVE) Meds: Medications Generic Name Dose Route Start Last Admin Trade Name Freq PRN Reason Stop Dose Admin Sodium Chloride 500 mls @ 15 mls/hr 10/10/20 18:30 10/10/20 19:13 Sodium Chloride 3% IV 15 mls/hr ASDIRECTED DENISSE Administration Potassium Chloride/Dextrose/Sod Cl 1,000 mls @ 200 mls/hr 10/10/20 18:45 10/10/20 19:07 D5 1/2 Ns W/ 40 Meq/L Kcl IV 200 mls/hr ASDIRECTED DENISSE Administration Ceftriaxone Sodium 1 gm/ 100 mls @ 200 mls/hr 10/10/20 19:30 Sodium Chloride IV Q24H DENISSE Sodium Chloride 10 ml 10/10/20 18:30 Sodium Chloride 0.9% 10 Ml Syringe FLUSH ASDIRECTED PRN Keep Vein Open - Radiology Interpretation Free Text/Narrative:: CT of head with no acute intercranial abnormality. interpreted by radiology nodule right lung noted chest x-ray, no pneumothorax or pneumonia preliminary interpreted by me toes right foot without acute fracture preliminary interpreted by me lumbar spine with questionable compression fracture at L5 preliminaryily interpreted by me. - Re-Assessments/Exams Free Text/Narrative Re-Assessment/Exam: 10/10/20 19:23 Patient has critical hyponatremia. There is some remote history of this. On HCTZ, will stop this. needs hypertonic saline at 15 mls/hr with bmp every 8 hours. started at 19:00. another IV with ns 40 meq potassium at 200 ml/hour. Will stay on telemetry. Will admit for correction of sodium. history of hyponatremia and on salt tablets four times a day with low levels today. Leukocytosis of unknown origin, blood cultures pending. awaiting a urine to start antibiotics. 10/10/20 19:37 10/10/20 19:50 has UTI has e coli sepsis last time with blood culture positive for e coli, sensitive to all will give ropcephin IV P, admitted Departure - Departure Time of Disposition: 19:49 (use the ER visit as history and physical ) Disposition: Admitted As Inpatient 67 Condition: Fair Clinical Impression: Hyponatremia, Hypokalemia, Weakness, Sinus arrhythmia, UTI (urinary tract infection), Leukocytosis - Discharge Information *PRESCRIPTION DRUG MONITORING PROGRAM REVIEWED*: Not Applicable *COPY OF PRESCRIPTION DRUG MONITORING REPORT IN PATIENT BIENVENIDO: Not Applicable Sepsis Event Note (ED) - Evaluation Sepsis Screening Result: No Definite Risk - Focused Exam Vital Signs: Vital Signs Temp Pulse Resp BP Pulse Ox 10/10/20 17:36 93 15 169/79 H 98 10/10/20 17:20 36.7 C 90 19 171/80 H 98 - My Orders Last 24 Hours: My Active Orders 10/10/20 17:51 Chest 2V [CR] Stat Lumbar Spine 2 or 3V [CR] Stat Toes Multiple Rt [CR] Stat 10/10/20 17:53 EKG Documentation Completion [RC] ASDIRECTED Head wo Cont [CT] Stat 10/10/20 18:30 Sodium Chloride 0.9% [Saline Flush] 10 ml FLUSH ASDIRECTED PRN Sodium Chloride 3% 500 ml IV ASDIRECTED Peripheral IV Insertion Adult [OM.PC] Routine 10/10/20 18:31 Peripheral IV Care [RC] . DIRECTED 10/10/20 18:37 Blood Culture x2 Reflex Set [OM.PC] Stat 10/10/20 18:45 D5 1/2 NS w/ 40 mEq/L KCl 1,000 ml IV ASDIRECTED 10/10/20 18:47 CULTURE BLOOD [BC] Stat 10/10/20 18:59 Admission Status [Patient Status] [ADT] Routine 10/10/20 19:00 CULTURE BLOOD [BC] Stat 10/10/20 19:30 CULTURE URINE [RM] Stat - Assessment/Plan Last 24 Hours: My Active Orders 10/10/20 17:51 Chest 2V [CR] Stat Lumbar Spine 2 or 3V [CR] Stat Toes Multiple Rt [CR] Stat 10/10/20 17:53 EKG Documentation Completion [RC] ASDIRECTED Head wo Cont [CT] Stat 10/10/20 18:30 Sodium Chloride 0.9% [Saline Flush] 10 ml FLUSH ASDIRECTED PRN Sodium Chloride 3% 500 ml IV ASDIRECTED Peripheral IV Insertion Adult [OM.PC] Routine 10/10/20 18:31 Peripheral IV Care [RC] . DIRECTED 10/10/20 18:37 Blood Culture x2 Reflex Set [OM.PC] Stat 10/10/20 18:45 D5 1/2 NS w/ 40 mEq/L KCl 1,000 ml IV ASDIRECTED 10/10/20 18:47 CULTURE BLOOD [BC] Stat 10/10/20 18:59 Admission Status [Patient Status] [ADT] Routine 10/10/20 19:00 CULTURE BLOOD [BC] Stat 10/10/20 19:30 CULTURE URINE [RM] Stat
[2020-10-10 18:27] LABS: CHLORIDE,CL 82 mmol/L (98-107)
[2020-10-10 18:29] LABS: ANION GAP 9.4 meq/L (7-15); SODIUM,NA 117 mmol/L (136-145)
[2020-10-10] MEDS ORDERED: Sodium Chloride 0.9% 10 ML Syringe FLUSH PRN (18:30)
[2020-10-10] MEDS: D5 1/2 NS w/ 40 mEq/L KCl 1,000 ML IV SCH (19:07)
[2020-10-10] MEDS: Sodium Chloride 3% 500 ML IV SCH (19:13)
[2020-10-10] MEDS ORDERED: cefTRIAXone 1 GM in Sodium Chloride 0.9% 100 ML IV SCH (19:30)
[2020-10-10] MEDS ORDERED: Bisacodyl 5 MG Tab PO PRN (19:59)
[2020-10-10] MEDS ORDERED: Ondansetron 4 MG/2 ML SDV IVPUSH PRN (19:59)
[2020-10-10] MEDS ORDERED: Ondansetron 4 MG Tab.DIS PO PRN (19:59)
[2020-10-10] MEDS: cefTRIAXone 2 GM Vial IVPUSH SCH (21:08)
[2020-10-10] MEDS: Metoprolol Succinate 50 MG Tab.ER PO SCH (21:11)
[2020-10-10] MEDS: cloNIDine 0.1 MG Tab PO SCH (21:11)
[2020-10-10] MEDS: Acetaminophen 325 MG Tab PO PRN (21:12)
[2020-10-10] MEDS: Losartan 50 MG Tab PO SCH (21:13)
[2020-10-10] MEDS: Sodium Chloride 1 GM Tab PO SCH (21:13)
[2020-10-10] MEDS: Simvastatin 20 MG Tab PO SCH (21:13)
[2020-10-10] MEDS: Potassium Chloride 20 MEQ Tab.ER PO SCH (21:13)
[2020-10-10] MEDS: Magnesium Oxide 400 MG Tab PO SCH (21:13)
[2020-10-11] MEDS: D5 1/2 NS w/ 40 mEq/L KCl 1,000 ML IV SCH (00:36)
[2020-10-11 03:34] LABS: CHLORIDE,CL 90 mmol/L (98-107)
[2020-10-11 03:36] LABS: ANION GAP 7.9 meq/L (7-15); SODIUM,NA 122 mmol/L (136-145)
--- NOTE | 2020-10-11 07:02 | PCM.SN.2 ---
- Free Text/Narrative Note: patient was up several times at night. Doing well. potassium has normalized. Stop dose, will restart 20 meq po tomorrow, but should be watched as stopped the HCTZ. Blood pressure is doing well. May need to alter other medications with the removal of the HCTZ. Would like physical therapy for her back. Will order this . Sodium is improving slowly, continue 3% at 15 mls/hr. Will recheck bmp at [address] abdomen and pelvis with IV contrast this morning. report given to next provider Vital Signs (72 hours) 10/10/20 10/10/20 10/10/20 17:20 17:36 19:54 Temperature [ 36.7 C 36.1 C Temporal] Pulse, Peripheral Pulse, 90 93 87 Peripheral [ Pulse Oximetry] Respiratory 19 15 16 Rate Blood Pressure Blood Pressure 171/80 H 169/79 H 176/90 H [Left Upper Arm ] O2 Sat by Pulse 98 98 99 Oximetry 10/10/20 10/10/20 10/10/20 20:00 21:11 21:13 Temperature [ Temporal] Pulse, 77 Peripheral Pulse, Peripheral [ Pulse Oximetry] Respiratory Rate Blood Pressure 170/90 H 170/90 H Blood Pressure [Left Upper Arm ] O2 Sat by Pulse 99 Oximetry 10/10/20 10/10/20 10/11/20 22:21 23:59 03:30 Temperature [ 35.9 C L 36.6 C 36.5 C Temporal] Pulse, Peripheral Pulse, 74 68 69 Peripheral [ Pulse Oximetry] Respiratory 17 16 16 Rate Blood Pressure Blood Pressure 174/75 H 141/66 H 153/85 H [Left Upper Arm ] O2 Sat by Pulse 100 98 98 Oximetry Laboratory Last Values WBC 14.5 K/uL (4.0-10.2) H 10/10/20 18:00 RBC 4.79 M/uL (3.77-5.09) 10/10/20 18:00 Hgb 14.0 g/dL (11.7-15.5) D 10/10/20 18:00 Hct 38.6 % (34.0-46.0) 10/10/20 18:00 MCV 80.6 fL (84.0-98.0) L D 10/10/20 18:00 MCH 29.2 pg (28.2-33.3) 10/10/20 18:00 MCHC 36.3 g/dL (31.7-36.0) H 10/10/20 18:00 RDW 13.0 % (11.2-14.1) 10/10/20 18:00 Plt Count 388 K/uL (150-350) H D 10/10/20 18:00 Neut % (Auto) 78.9 % (45.0-80.0) 10/10/20 18:00 Lymph % (Auto) 13.5 % (10.0-50.0) 10/10/20 18:00 [place] % (Auto) 7.3 % (2.0-14.0) 10/10/20 18:00 Eos % (Auto) 0.1 % (0.0-5.0) 10/10/20 18:00 Baso % (Auto) 0.2 % (0.0-2.0) 10/10/20 18:00 Neut # (Auto) 11.43 K/uL (1.40-7.00) H 10/10/20 18:00 Lymph # (Auto) 1.95 K/uL (0.50-3.50) 10/10/20 18:00 [place] # (Auto) 1.05 K/uL (0.00-1.00) H 10/10/20 18:00 Eos # (Auto) 0.01 K/uL (0.00-0.50) 10/10/20 18:00 Baso # (Auto) 0.03 K/uL (0.00-0.20) 10/10/20 18:00 Sodium 122 mmol/L (136-145) L* 10/11/20 03:10 Potassium 4.4 mmol/L (3.5-5.1) 10/11/20 03:10 Chloride 90 mmol/L (98-107) L 10/11/20 03:10 Carbon Dioxide 28.5 mmol/L (21.0-32.0) 10/11/20 03:10 Anion Gap 7.9 meq/L (7-15) 10/11/20 03:10 BUN 8 mg/dL (7-18) 10/11/20 03:10 Creatinine 0.66 mg/dL (0.51-1.17) 10/11/20 03:10 Est Cr Clr Drug Dosing 45.58 mL/min 10/11/20 03:10 Estimated GFR (MDRD) > 60 mL/min 10/11/20 03:10 Glucose 167 mg/dL (70-99) H 10/11/20 03:10 Lactic Acid 1.3 mmol/L (0.4-2.0) 10/10/20 18:00 Calcium 7.7 mg/dL (8.5-10.1) L 10/11/20 03:10 Magnesium 1.8 mg/dL (1.8-2.4) 10/10/20 18:00 Total Bilirubin 0.6 mg/dL (0.2-1.0) 10/10/20 18:00 AST 12 U/L (15-37) L 10/10/20 18:00 ALT 16 U/L (12-78) 10/10/20 18:00 Alkaline Phosphatase 103 IU/L (46-116) 10/10/20 18:00 Troponin I High Sens 10 ng/L (<=51) 10/10/20 18:00 C-Reactive Protein 0.6 mg/dL (<=0.9) 10/10/20 18:00 Total Protein 7.1 g/dL (6.4-8.2) 10/10/20 18:00 Albumin 3.4 g/dL (3.4-5.0) 10/10/20 18:00 Lipase 103 U/L (73-393) 10/10/20 18:00 Specimen Type Urincc 10/10/20 19:30 Urine Color Yellow 10/10/20 19:30 Urine Appearance Cloudy 10/10/20 19:30 Urine pH 6.5 (5.0-9.0) 10/10/20 19:30 Ur Specific [place] 1.020 (1.005-1.030) 10/10/20 19:30 Urine Protein Negative mg/dL (NEGATIVE) 10/10/20 19:30 Urine Glucose (UA) Negative mg/dL (NEGATIVE) 10/10/20 19:30 Urine Ketones 15 mg/dL (NEGATIVE) H 10/10/20 19:30 Urine Occult Blood Small (NEGATIVE) H 10/10/20 19:30 Urine Nitrite Positive (NEGATIVE) H 10/10/20 19:30 Urine Bilirubin Negative (NEGATIVE) 10/10/20 19:30 Urine Urobilinogen 0.2 E.U./dL (0.2-1.0) 10/10/20 19:30 Ur Leukocyte Esterase Negative (NEGATIVE) 10/10/20 19:30 Urine RBC 0-5 /HPF 10/10/20 19:30 Urine WBC 5-10 /HPF H 10/10/20 19:30 Ur Epithelial Cells Rare /LPF 10/10/20 19:30 Urine Bacteria Many /HPF (NONE TO FEW) H 10/10/20 19:30 SARS-CoV-2 RNA (MYRIAM) Negative (NEGATIVE) 10/10/20 17:55
[2020-10-11] MEDS ORDERED: Iopamidol 612 MG/ML 100 ML Bottle IVPUSH ONE (07:39)
[2020-10-11] MEDS: Enoxaparin 40 MG/0.4 ML Syringe SUBCUT SCH (07:56)
[2020-10-11] MEDS: Sodium Chloride 1 GM Tab PO SCH ×4 (07:56→20:19)
[2020-10-11] MEDS: Losartan 50 MG Tab PO SCH ×2 (07:56→20:18)
[2020-10-11] MEDS: Metoprolol Succinate 50 MG Tab.ER PO SCH ×2 (07:56→20:19)
[2020-10-11] MEDS: Aspirin 81 MG Tab.EC PO SCH (07:56)
[2020-10-11] MEDS: cloNIDine 0.1 MG Tab PO SCH ×2 (07:57→20:19)
[2020-10-11] MEDS: Magnesium Oxide 400 MG Tab PO SCH ×2 (07:57→18:22)
[2020-10-11] MEDS: Acetaminophen 325 MG Tab PO PRN ×2 (08:41→22:17)
[2020-10-11 11:36] LABS: CHLORIDE,CL 97 mmol/L (98-107); SODIUM,NA 127 mmol/L (136-145)
[2020-10-11 11:41] LABS: ANION GAP 9.5 meq/L (7-15)
[2020-10-11] MEDS: Potassium Chloride 20 MEQ Tab.ER PO SCH ×2 (12:12→18:22)
--- NOTE | 2020-10-11 12:14 | PCM.PN ---
- General Info Date of Service: 10/11/20 Admission Dx/Problem (Free Text): Weakness Hyponatremia UTI sepsis Back pain Subjective Update: Patient does feel quite a bit better today. She has no fever no chills. No chest pain no shortness of breath or difficulty breathing. She does still compl ain of some generalized weakness and unsteadiness with getting up and still needs quite a bit of assistance. She does not have much of an appetite which has been going on for days. She has had no nausea or vomiting she has no abdominal pain. No hematuria dysuria urinary frequency. No black or tarry stools. She did have a bowel movement yesterday. She does feel quite a bit better but not back to baseline at this time. No confusions or paresthesias. Functional Status: Reports: Pain Controlled, Tolerating Diet (Although does not have much of an appetite). Denies: New Symptoms - Patient Data Vitals - Most Recent: Last Vital Signs Temp 97.9 F 10/11/20 08:00 Pulse 83 10/11/20 08:00 Resp 20 10/11/20 08:00 BP 145/84 H 10/11/20 08:00 Pulse Ox 98 10/11/20 08:00 Weight - Most Recent: 133 lb 14.4 oz I&O - Last 24 Hours: Intake & Output 10/10/20 10/11/20 10/11/20 22:59 06:59 14:59 Intake Total 1851 480 Output Total 300 1250 300 Balance -300 601 180 Lab Results Last 24 Hours: Laboratory Results - last 24 hr 10/10/20 10/10/20 10/10/20 Range/Units 17:55 18:00 18:00 WBC 14.5 H (4.0-10.2) K/uL RBC 4.79 (3.77-5.09) M/uL Hgb 14.0 D (11.7-15.5) g/dL Hct 38.6 (34.0-46.0) % MCV 80.6 L D (84.0-98.0) fL MCH 29.2 (28.2-33.3) pg MCHC 36.3 H (31.7-36.0) g/dL RDW 13.0 (11.2-14.1) % Plt Count 388 H D (150-350) K/uL MPV (7.00-11.50) fL Neut % (Auto) 78.9 (45.0-80.0) % Lymph % (Auto) 13.5 (10.0-50.0) % [place] % (Auto) 7.3 (2.0-14.0) % Eos % (Auto) 0.1 (0.0-5.0) % Baso % (Auto) 0.2 (0.0-2.0) % Neut # (Auto) 11.43 H (1.40-7.00) K/uL Lymph # (Auto) 1.95 (0.50-3.50) K/uL [place] # (Auto) 1.05 H (0.00-1.00) K/uL Eos # (Auto) 0.01 (0.00-0.50) K/uL Baso # (Auto) 0.03 (0.00-0.20) K/uL Sodium 117 L* (136-145) mmol/L Potassium 3.1 L (3.5-5.1) mmol/L Chloride 82 L (98-107) mmol/L Carbon Dioxide 28.7 (21.0-32.0) mmol/L Anion Gap 9.4 (7-15) meq/L BUN 12 (7-18) mg/dL Creatinine 0.79 (0.51-1.17) mg/dL Est Cr Clr Drug Dosing TNP Estimated GFR (MDRD) > 60 mL/min Glucose 146 H (70-99) mg/dL Lactic Acid (0.4-2.0) mmol/L Calcium 8.4 L (8.5-10.1) mg/dL Magnesium (1.8-2.4) mg/dL Total Bilirubin 0.6 (0.2-1.0) mg/dL AST 12 L (15-37) U/L ALT 16 (12-78) U/L Alkaline Phosphatase 103 (46-116) IU/L Troponin I High Sens 10 (<=51) ng/L C-Reactive Protein 0.6 (<=0.9) mg/dL Total Protein 7.1 (6.4-8.2) g/dL Albumin 3.4 (3.4-5.0) g/dL Lipase 103 (73-393) U/L Specimen Type Urine Color Urine Appearance Urine pH (5.0-9.0) Ur Specific [place] (1.005-1.030) Urine Protein (NEGATIVE) mg/dL Urine Glucose (UA) (NEGATIVE) mg/dL Urine Ketones (NEGATIVE) mg/dL Urine Occult Blood (NEGATIVE) Urine Nitrite (NEGATIVE) Urine Bilirubin (NEGATIVE) Urine Urobilinogen (0.2-1.0) E.U./dL Ur Leukocyte Esterase (NEGATIVE) Urine RBC /HPF Urine WBC /HPF Ur Epithelial Cells /LPF Urine Bacteria (NONE TO FEW) /HPF SARS-CoV-2 RNA (MYRIAM) Negative (NEGATIVE) 10/10/20 10/10/20 10/10/20 Range/Units 18:00 18:00 19:30 WBC (4.0-10.2) K/uL RBC (3.77-5.09) M/uL Hgb (11.7-15.5) g/dL Hct (34.0-46.0) % MCV (84.0-98.0) fL MCH (28.2-33.3) pg MCHC (31.7-36.0) g/dL RDW (11.2-14.1) % Plt Count (150-350) K/uL MPV (7.00-11.50) fL Neut % (Auto) (45.0-80.0) % Lymph % (Auto) (10.0-50.0) % [place] % (Auto) (2.0-14.0) % Eos % (Auto) (0.0-5.0) % Baso % (Auto) (0.0-2.0) % Neut # (Auto) (1.40-7.00) K/uL Lymph # (Auto) (0.50-3.50) K/uL [place] # (Auto) (0.00-1.00) K/uL Eos # (Auto) (0.00-0.50) K/uL Baso # (Auto) (0.00-0.20) K/uL Sodium (136-145) mmol/L Potassium (3.5-5.1) mmol/L Chloride (98-107) mmol/L Carbon Dioxide (21.0-32.0) mmol/L Anion Gap (7-15) meq/L BUN (7-18) mg/dL Creatinine (0.51-1.17) mg/dL Est Cr Clr Drug Dosing Estimated GFR (MDRD) mL/min Glucose (70-99) mg/dL Lactic Acid 1.3 (0.4-2.0) mmol/L Calcium (8.5-10.1) mg/dL Magnesium 1.8 (1.8-2.4) mg/dL Total Bilirubin (0.2-1.0) mg/dL AST (15-37) U/L ALT (12-78) U/L Alkaline Phosphatase (46-116) IU/L Troponin I High Sens (<=51) ng/L C-Reactive Protein (<=0.9) mg/dL Total Protein (6.4-8.2) g/dL Albumin (3.4-5.0) g/dL Lipase (73-393) U/L Specimen Type Urincc Urine Color Yellow Urine Appearance Cloudy Urine pH 6.5 (5.0-9.0) Ur Specific [place] 1.020 (1.005-1.030) Urine Protein Negative (NEGATIVE) mg/dL Urine Glucose (UA) Negative (NEGATIVE) mg/dL Urine Ketones 15 H (NEGATIVE) mg/dL Urine Occult Blood Small H (NEGATIVE) Urine Nitrite Positive H (NEGATIVE) Urine Bilirubin Negative (NEGATIVE) Urine Urobilinogen 0.2 (0.2-1.0) E.U./dL Ur Leukocyte Esterase Negative (NEGATIVE) Urine RBC 0-5 /HPF Urine WBC 5-10 H /HPF Ur Epithelial Cells Rare /LPF Urine Bacteria Many H (NONE TO FEW) /HPF SARS-CoV-2 RNA (MYRIAM) (NEGATIVE) 10/11/20 10/11/20 10/11/20 Range/Units 03:10 11:08 11:08 WBC 13.1 H (4.0-10.2) K/uL RBC 4.36 (3.77-5.09) M/uL Hgb 12.7 (11.7-15.5) g/dL Hct 36.1 (34.0-46.0) % MCV 82.8 L (84.0-98.0) fL MCH 29.1 (28.2-33.3) pg MCHC 35.2 (31.7-36.0) g/dL RDW 13.4 (11.2-14.1) % Plt Count 352 H (150-350) K/uL MPV 9.20 (7.00-11.50) fL Neut % (Auto) (45.0-80.0) % Lymph % (Auto) (10.0-50.0) % [place] % (Auto) (2.0-14.0) % Eos % (Auto) (0.0-5.0) % Baso % (Auto) (0.0-2.0) % Neut # (Auto) (1.40-7.00) K/uL Lymph # (Auto) (0.50-3.50) K/uL [place] # (Auto) (0.00-1.00) K/uL Eos # (Auto) (0.00-0.50) K/uL Baso # (Auto) (0.00-0.20) K/uL Sodium 122 L* 127 L (136-145) mmol/L Potassium 4.4 5.0 (3.5-5.1) mmol/L Chloride 90 L 97 L (98-107) mmol/L Carbon Dioxide 28.5 25.5 (21.0-32.0) mmol/L Anion Gap 7.9 9.5 (7-15) meq/L BUN 8 7 (7-18) mg/dL Creatinine 0.66 0.72 (0.51-1.17) mg/dL Est Cr Clr Drug Dosing 45.58 41.78 Estimated GFR (MDRD) > 60 > 60 mL/min Glucose 167 H 102 H (70-99) mg/dL Lactic Acid (0.4-2.0) mmol/L Calcium 7.7 L 8.0 L (8.5-10.1) mg/dL Magnesium (1.8-2.4) mg/dL Total Bilirubin (0.2-1.0) mg/dL AST (15-37) U/L ALT (12-78) U/L Alkaline Phosphatase (46-116) IU/L Troponin I High Sens (<=51) ng/L C-Reactive Protein (<=0.9) mg/dL Total Protein (6.4-8.2) g/dL Albumin (3.4-5.0) g/dL Lipase (73-393) U/L Specimen Type Urine Color Urine Appearance Urine pH (5.0-9.0) Ur Specific [place] (1.005-1.030) Urine Protein (NEGATIVE) mg/dL Urine Glucose (UA) (NEGATIVE) mg/dL Urine Ketones (NEGATIVE) mg/dL Urine Occult Blood (NEGATIVE) Urine Nitrite (NEGATIVE) Urine Bilirubin (NEGATIVE) Urine Urobilinogen (0.2-1.0) E.U./dL Ur Leukocyte Esterase (NEGATIVE) Urine RBC /HPF Urine WBC /HPF Ur Epithelial Cells /LPF Urine Bacteria (NONE TO FEW) /HPF SARS-CoV-2 RNA (MYRIAM) (NEGATIVE) 10/11/20 Range/Units 11:08 WBC (4.0-10.2) K/uL RBC (3.77-5.09) M/uL Hgb (11.7-15.5) g/dL Hct (34.0-46.0) % MCV (84.0-98.0) fL MCH (28.2-33.3) pg MCHC (31.7-36.0) g/dL RDW (11.2-14.1) % Plt Count (150-350) K/uL MPV (7.00-11.50) fL Neut % (Auto) (45.0-80.0) % Lymph % (Auto) (10.0-50.0) % [place] % (Auto) (2.0-14.0) % Eos % (Auto) (0.0-5.0) % Baso % (Auto) (0.0-2.0) % Neut # (Auto) (1.40-7.00) K/uL Lymph # (Auto) (0.50-3.50) K/uL [place] # (Auto) (0.00-1.00) K/uL Eos # (Auto) (0.00-0.50) K/uL Baso # (Auto) (0.00-0.20) K/uL Sodium (136-145) mmol/L Potassium (3.5-5.1) mmol/L Chloride (98-107) mmol/L Carbon Dioxide (21.0-32.0) mmol/L Anion Gap (7-15) meq/L BUN (7-18) mg/dL Creatinine (0.51-1.17) mg/dL Est Cr Clr Drug Dosing Estimated GFR (MDRD) mL/min Glucose (70-99) mg/dL Lactic Acid 1.5 (0.4-2.0) mmol/L Calcium (8.5-10.1) mg/dL Magnesium (1.8-2.4) mg/dL Total Bilirubin (0.2-1.0) mg/dL AST (15-37) U/L ALT (12-78) U/L Alkaline Phosphatase (46-116) IU/L Troponin I High Sens (<=51) ng/L C-Reactive Protein (<=0.9) mg/dL Total Protein (6.4-8.2) g/dL Albumin (3.4-5.0) g/dL Lipase (73-393) U/L Specimen Type Urine Color Urine Appearance Urine pH (5.0-9.0) Ur Specific [place] (1.005-1.030) Urine Protein (NEGATIVE) mg/dL Urine Glucose (UA) (NEGATIVE) mg/dL Urine Ketones (NEGATIVE) mg/dL Urine Occult Blood (NEGATIVE) Urine Nitrite (NEGATIVE) Urine Bilirubin (NEGATIVE) Urine Urobilinogen (0.2-1.0) E.U./dL Ur Leukocyte Esterase (NEGATIVE) Urine RBC /HPF Urine WBC /HPF Ur Epithelial Cells /LPF Urine Bacteria (NONE TO FEW) /HPF SARS-CoV-2 RNA (MYRIAM) (NEGATIVE) Jameel Results Last 24 Hours: Microbiology 10/10/20 19:30 Urine Culture - Preliminary Urine, Voided Gram Negative Rods Med Orders - Current: Current Medications Acetaminophen (Acetaminophen 325 Mg Tab) 650 mg PO Q4H PRN PRN Reason: Pain (Mild 1-3)/fever Last Admin: 10/11/20 08:41 Dose: 650 mg Documented by: Aspirin (Aspirin 81 Mg Tab.Ec) 81 mg PO DAILY DENISSE Last Admin: 10/11/20 07:56 Dose: 81 mg Documented by: Bisacodyl (Bisacodyl 5 Mg Tab) 5 mg PO DAILY PRN PRN Reason: Constipation Ceftriaxone Sodium (Ceftriaxone 2 Gm Vial) 1 gm IVPUSH Q24H DENISSE Last Admin: 10/10/20 21:08 Dose: 1 gm Documented by: Clonidine HCl (Clonidine 0.1 Mg Tab) 0.1 mg PO Q12HR DENISSE Last Admin: 10/11/20 07:57 Dose: 0.1 mg Documented by: Enoxaparin Sodium (Enoxaparin 40 Mg/0.4 Ml Syringe) 40 mg SUBCUT DAILY [facility] Last Admin: 10/11/20 07:56 Dose: 40 mg Documented by: Sodium Chloride (Sodium Chloride 3%) 500 mls @ 15 mls/hr IV ASDIRECTED [facility] Last Admin: 10/10/20 19:13 Dose: 15 mls/hr Documented by: Losartan Potassium (Losartan 50 Mg Tab) 50 mg PO Q12HR [facility] Last Admin: 10/11/20 07:56 Dose: 50 mg Documented by: Magnesium Oxide (Magnesium Oxide 400 Mg Tab) 400 mg PO BID [facility] Last Admin: 10/11/20 07:57 Dose: 400 mg Documented by: Metoprolol Succinate (Metoprolol Succinate 50 Mg Tab.Er) 100 mg PO BEDTIME [facility] Last Admin: 10/10/20 21:11 Dose: 100 mg Documented by: Metoprolol Succinate (Metoprolol Succinate 50 Mg Tab.Er) 50 mg PO DAILY [facility] Last Admin: 10/11/20 07:56 Dose: 50 mg Documented by: Ondansetron HCl (Ondansetron 4 Mg Tab.Dis) 4 mg PO Q4H PRN PRN Reason: Nausea/Vomiting Ondansetron HCl (Ondansetron 4 Mg/2 Ml Sdv) 4 mg IVPUSH Q4H PRN PRN Reason: Nausea/Vomiting Potassium Chloride (Potassium Chloride 20 Meq Tab.Er) 20 meq PO TID [facility] Last Admin: 10/10/20 21:13 Dose: 20 meq Documented by: Potassium Chloride (Potassium Chloride 10 Meq Tab.Er) 20 meq PO WITHBREAKFAST [facility] Simvastatin (Simvastatin 20 Mg Tab) 20 mg PO BEDTIME [facility] Last Admin: 10/10/20 21:13 Dose: 20 mg Documented by: Sodium Chloride (Sodium Chloride 0.9% 10 Ml Syringe) 10 ml FLUSH ASDIRECTED PRN PRN Reason: Keep Vein Open Sodium Chloride (Sodium Chloride 1 Gm Tab) 1 gm PO QID [facility] Last Admin: 10/11/20 07:56 Dose: 1 gm Documented by: Discontinued Medications Potassium Chloride/Dextrose/Sod Cl (D5 1/2 Ns W/ 40 Meq/L Kcl) 1,000 mls @ 200 mls/hr IV ASDIRECTED [facility] Last Admin: 10/11/20 00:36 Dose: 200 mls/hr Documented by: Ceftriaxone Sodium 1 gm/ (Sodium Chloride) 100 mls @ 200 mls/hr IV Q24H [facility] Last Admin: 10/10/20 20:40 Dose: Not Given Documented by: Iopamidol (Iopamidol 612 Mg/Ml 100 Ml Bottle) 100 ml IVPUSH ONETIME ONE Stop: 10/11/20 07:40 Last Admin: 10/11/20 08:25 Dose: 100 ml Documented by: - Exam General: Alert, Oriented HEENT: Pupils Equal Neck: Supple Lungs: Clear to Auscultation, Normal Respiratory Effort Cardiovascular: Regular Rate, Regular Rhythm GI/Abdominal Exam: Normal Bowel Sounds, Soft, Non-Tender (Female) Exam: Deferred Back Exam: Normal Inspection, Other (No bruising swelling ecchymosis bony def ormities or other signs of trauma to the posterior.). No: CVA Tenderness (L), CVA Tenderness (R), Paraspinal Tenderness, Vertebral Tenderness Extremities: Normal Inspection, Normal Range of Motion, Non-Tender, No Pedal Edema, Normal Capillary Refill Peripheral Pulses: 2+: Radial (L), Radial (R), Posterior Tibial (L), Posterior Tibial (R), Dorsalis Pedis (L), Dorsalis Pedis (R) Skin: Warm, Dry, Intact Neurological: No New Focal Deficit Psy/Mental Status: Alert, Normal Affect, Normal Mood - Patient Data Lab Results Last 24 hrs: Laboratory Results - last 24 hr 10/10/20 10/10/20 10/10/20 Range/Units 17:55 18:00 18:00 WBC 14.5 H (4.0-10.2) K/uL RBC 4.79 (3.77-5.09) M/uL Hgb 14.0 D (11.7-15.5) g/dL Hct 38.6 (34.0-46.0) % MCV 80.6 L D (84.0-98.0) fL MCH 29.2 (28.2-33.3) pg MCHC 36.3 H (31.7-36.0) g/dL RDW 13.0 (11.2-14.1) % Plt Count 388 H D (150-350) K/uL MPV (7.00-11.50) fL Neut % (Auto) 78.9 (45.0-80.0) % Lymph % (Auto) 13.5 (10.0-50.0) % [place] % (Auto) 7.3 (2.0-14.0) % Eos % (Auto) 0.1 (0.0-5.0) % Baso % (Auto) 0.2 (0.0-2.0) % Neut # (Auto) 11.43 H (1.40-7.00) K/uL Lymph # (Auto) 1.95 (0.50-3.50) K/uL [place] # (Auto) 1.05 H (0.00-1.00) K/uL Eos # (Auto) 0.01 (0.00-0.50) K/uL Baso # (Auto) 0.03 (0.00-0.20) K/uL Sodium 117 L* (136-145) mmol/L Potassium 3.1 L (3.5-5.1) mmol/L Chloride 82 L (98-107) mmol/L Carbon Dioxide 28.7 (21.0-32.0) mmol/L Anion Gap 9.4 (7-15) meq/L BUN 12 (7-18) mg/dL Creatinine 0.79 (0.51-1.17) mg/dL Est Cr Clr Drug Dosing TNP Estimated GFR (MDRD) > 60 mL/min Glucose 146 H (70-99) mg/dL Lactic Acid (0.4-2.0) mmol/L Calcium 8.4 L (8.5-10.1) mg/dL Magnesium (1.8-2.4) mg/dL Total Bilirubin 0.6 (0.2-1.0) mg/dL AST 12 L (15-37) U/L ALT 16 (12-78) U/L Alkaline Phosphatase 103 (46-116) IU/L Troponin I High Sens 10 (<=51) ng/L C-Reactive Protein 0.6 (<=0.9) mg/dL Total Protein 7.1 (6.4-8.2) g/dL Albumin 3.4 (3.4-5.0) g/dL Lipase 103 (73-393) U/L Specimen Type Urine Color Urine Appearance Urine pH (5.0-9.0) Ur Specific [place] (1.005-1.030) Urine Protein (NEGATIVE) mg/dL Urine Glucose (UA) (NEGATIVE) mg/dL Urine Ketones (NEGATIVE) mg/dL Urine Occult Blood (NEGATIVE) Urine Nitrite (NEGATIVE) Urine Bilirubin (NEGATIVE) Urine Urobilinogen (0.2-1.0) E.U./dL Ur Leukocyte Esterase (NEGATIVE) Urine RBC /HPF Urine WBC /HPF Ur Epithelial Cells /LPF Urine Bacteria (NONE TO FEW) /HPF SARS-CoV-2 RNA (MYRIAM) Negative (NEGATIVE) 10/10/20 10/10/20 10/10/20 Range/Units 18:00 18:00 19:30 WBC (4.0-10.2) K/uL RBC (3.77-5.09) M/uL Hgb (11.7-15.5) g/dL Hct (34.0-46.0) % MCV (84.0-98.0) fL MCH (28.2-33.3) pg MCHC (31.7-36.0) g/dL RDW (11.2-14.1) % Plt Count (150-350) K/uL MPV (7.00-11.50) fL Neut % (Auto) (45.0-80.0) % Lymph % (Auto) (10.0-50.0) % [place] % (Auto) (2.0-14.0) % Eos % (Auto) (0.0-5.0) % Baso % (Auto) (0.0-2.0) % Neut # (Auto) (1.40-7.00) K/uL Lymph # (Auto) (0.50-3.50) K/uL [place] # (Auto) (0.00-1.00) K/uL Eos # (Auto) (0.00-0.50) K/uL Baso # (Auto) (0.00-0.20) K/uL Sodium (136-145) mmol/L Potassium (3.5-5.1) mmol/L Chloride (98-107) mmol/L Carbon Dioxide (21.0-32.0) mmol/L Anion Gap (7-15) meq/L BUN (7-18) mg/dL Creatinine (0.51-1.17) mg/dL Est Cr Clr Drug Dosing Estimated GFR (MDRD) mL/min Glucose (70-99) mg/dL Lactic Acid 1.3 (0.4-2.0) mmol/L Calcium (8.5-10.1) mg/dL Magnesium 1.8 (1.8-2.4) mg/dL Total Bilirubin (0.2-1.0) mg/dL AST (15-37) U/L ALT (12-78) U/L Alkaline Phosphatase (46-116) IU/L Troponin I High Sens (<=51) ng/L C-Reactive Protein (<=0.9) mg/dL Total Protein (6.4-8.2) g/dL Albumin (3.4-5.0) g/dL Lipase (73-393) U/L Specimen Type Urincc Urine Color Yellow Urine Appearance Cloudy Urine pH 6.5 (5.0-9.0) Ur Specific [place] 1.020 (1.005-1.030) Urine Protein Negative (NEGATIVE) mg/dL Urine Glucose (UA) Negative (NEGATIVE) mg/dL Urine Ketones 15 H (NEGATIVE) mg/dL Urine Occult Blood Small H (NEGATIVE) Urine Nitrite Positive H (NEGATIVE) Urine Bilirubin Negative (NEGATIVE) Urine Urobilinogen 0.2 (0.2-1.0) E.U./dL Ur Leukocyte Esterase Negative (NEGATIVE) Urine RBC 0-5 /HPF Urine WBC 5-10 H /HPF Ur Epithelial Cells Rare /LPF Urine Bacteria Many H (NONE TO FEW) /HPF SARS-CoV-2 RNA (MYRIAM) (NEGATIVE) 10/11/20 10/11/20 10/11/20 Range/Units 03:10 11:08 11:08 WBC 13.1 H (4.0-10.2) K/uL RBC 4.36 (3.77-5.09) M/uL Hgb 12.7 (11.7-15.5) g/dL Hct 36.1 (34.0-46.0) % MCV 82.8 L (84.0-98.0) fL MCH 29.1 (28.2-33.3) pg MCHC 35.2 (31.7-36.0) g/dL RDW 13.4 (11.2-14.1) % Plt Count 352 H (150-350) K/uL MPV 9.20 (7.00-11.50) fL Neut % (Auto) (45.0-80.0) % Lymph % (Auto) (10.0-50.0) % [place] % (Auto) (2.0-14.0) % Eos % (Auto) (0.0-5.0) % Baso % (Auto) (0.0-2.0) % Neut # (Auto) (1.40-7.00) K/uL Lymph # (Auto) (0.50-3.50) K/uL [place] # (Auto) (0.00-1.00) K/uL Eos # (Auto) (0.00-0.50) K/uL Baso # (Auto) (0.00-0.20) K/uL Sodium 122 L* 127 L (136-145) mmol/L Potassium 4.4 5.0 (3.5-5.1) mmol/L Chloride 90 L 97 L (98-107) mmol/L Carbon Dioxide 28.5 25.5 (21.0-32.0) mmol/L Anion Gap 7.9 9.5 (7-15) meq/L BUN 8 7 (7-18) mg/dL Creatinine 0.66 0.72 (0.51-1.17) mg/dL Est Cr Clr Drug Dosing 45.58 41.78 Estimated GFR (MDRD) > 60 > 60 mL/min Glucose 167 H 102 H (70-99) mg/dL Lactic Acid (0.4-2.0) mmol/L Calcium 7.7 L 8.0 L (8.5-10.1) mg/dL Magnesium (1.8-2.4) mg/dL Total Bilirubin (0.2-1.0) mg/dL AST (15-37) U/L ALT (12-78) U/L Alkaline Phosphatase (46-116) IU/L Troponin I High Sens (<=51) ng/L C-Reactive Protein (<=0.9) mg/dL Total Protein (6.4-8.2) g/dL Albumin (3.4-5.0) g/dL Lipase (73-393) U/L Specimen Type Urine Color Urine Appearance Urine pH (5.0-9.0) Ur Specific [place] (1.005-1.030) Urine Protein (NEGATIVE) mg/dL Urine Glucose (UA) (NEGATIVE) mg/dL Urine Ketones (NEGATIVE) mg/dL Urine Occult Blood (NEGATIVE) Urine Nitrite (NEGATIVE) Urine Bilirubin (NEGATIVE) Urine Urobilinogen (0.2-1.0) E.U./dL Ur Leukocyte Esterase (NEGATIVE) Urine RBC /HPF Urine WBC /HPF Ur Epithelial Cells /LPF Urine Bacteria (NONE TO FEW) /HPF SARS-CoV-2 RNA (MYRIAM) (NEGATIVE) 10/11/20 Range/Units 11:08 WBC (4.0-10.2) K/uL RBC (3.77-5.09) M/uL Hgb (11.7-15.5) g/dL Hct (34.0-46.0) % MCV (84.0-98.0) fL MCH (28.2-33.3) pg MCHC (31.7-36.0) g/dL RDW (11.2-14.1) % Plt Count (150-350) K/uL MPV (7.00-11.50) fL Neut % (Auto) (45.0-80.0) % Lymph % (Auto) (10.0-50.0) % [place] % (Auto) (2.0-14.0) % Eos % (Auto) (0.0-5.0) % Baso % (Auto) (0.0-2.0) % Neut # (Auto) (1.40-7.00) K/uL Lymph # (Auto) (0.50-3.50) K/uL [place] # (Auto) (0.00-1.00) K/uL Eos # (Auto) (0.00-0.50) K/uL Baso # (Auto) (0.00-0.20) K/uL Sodium (136-145) mmol/L Potassium (3.5-5.1) mmol/L Chloride (98-107) mmol/L Carbon Dioxide (21.0-32.0) mmol/L Anion Gap (7-15) meq/L BUN (7-18) mg/dL Creatinine (0.51-1.17) mg/dL Est Cr Clr Drug Dosing Estimated GFR (MDRD) mL/min Glucose (70-99) mg/dL Lactic Acid 1.5 (0.4-2.0) mmol/L Calcium (8.5-10.1) mg/dL Magnesium (1.8-2.4) mg/dL Total Bilirubin (0.2-1.0) mg/dL AST (15-37) U/L ALT (12-78) U/L Alkaline Phosphatase (46-116) IU/L Troponin I High Sens (<=51) ng/L C-Reactive Protein (<=0.9) mg/dL Total Protein (6.4-8.2) g/dL Albumin (3.4-5.0) g/dL Lipase (73-393) U/L Specimen Type Urine Color Urine Appearance Urine pH (5.0-9.0) Ur Specific [place] (1.005-1.030) Urine Protein (NEGATIVE) mg/dL Urine Glucose (UA) (NEGATIVE) mg/dL Urine Ketones (NEGATIVE) mg/dL Urine Occult Blood (NEGATIVE) Urine Nitrite (NEGATIVE) Urine Bilirubin (NEGATIVE) Urine Urobilinogen (0.2-1.0) E.U./dL Ur Leukocyte Esterase (NEGATIVE) Urine RBC /HPF Urine WBC /HPF Ur Epithelial Cells /LPF Urine Bacteria (NONE TO FEW) /HPF SARS-CoV-2 RNA (MYRIAM) (NEGATIVE) Result Diagrams: 10/11/20 11:08 10/11/20 11:08 Jameel Results Last 24 hrs: Microbiology 10/10/20 19:30 Urine Culture - Preliminary Urine, Voided Gram Negative Rods Sepsis Event Note - Evaluation Sepsis Screening Result: Possible Sepsis Risk - Focused Exam Vital Signs: Vital Signs Temp Pulse Pulse Resp BP BP Pulse Ox 10/11/20 08:00 97.9 F 83 20 145/84 H 98 10/11/20 07:57 145/84 H 10/11/20 07:56 75 145/84 H 10/11/20 03:30 97.7 F 69 16 153/85 H 98 - Problem List & Annotations (1) Hypokalemia SNOMED Code(s): 76567428 Code(s): E87.6 - HYPOKALEMIA Status: Acute Current Visit: Yes Annotation/Comment:: Potassium upon admission was 3.1 she was replaced with IV hydration with potassium during the night and her potassium today is 5.0. This is been discontinued on her IV replacement. We will start her on 20 mEq orally tomorrow. Recheck labs. (2) Hyponatremia SNOMED Code(s): 90922542 Code(s): E87.1 - HYPO-OSMOLALITY AND HYPONATREMIA Status: Acute Current Visit: Yes Annotation/Comment:: Hyponatremia could be caused from her hydrochlorothiazide usage and/or her recent nausea vomiting with GI loss. And decreased oral intake.. Discontinue hydrochlorothiazide at this time. She is continuing to receive hypertonic 3% saline at 50 mils an hour. Initial sodium upon presentation was 117 and is currently 127. We will continue to follow. Discontinue fluids once her sodium is normalized. She was on salt tablets at home as well consider continuing or holding in close follow-up in the clinic. (3) UTI (urinary tract infection) SNOMED Code(s): 94246979 Code(s): N39.0 - URINARY TRACT INFECTION, SITE NOT SPECIFIED Status: Acute Current Visit: Yes Annotation/Comment:: Urinary tract infection with gram negative rods most likely E. coli. Blood cultures pending. On ceftriaxone 1 g every 24 hours. Lactic normal. Vital signs stable. Continue Rocephin. (4) CHF (congestive heart failure) SNOMED Code(s): 83750387 Code(s): I50.9 - HEART FAILURE, UNSPECIFIED Status: Chronic Priority: Medium Current Visit: No Qualifiers: Heart failure chronicity: chronic Annotation/Comment:: No evidence of congestive heart failure at this time. We will continue her hypertonic saline. Continue home medications other than hydrochlorothiazide. Blood pressures are appropriate and stable. (5) COPD (chronic obstructive pulmonary disease) SNOMED Code(s): 91800630 Code(s): J44.9 - CHRONIC OBSTRUCTIVE PULMONARY DISEASE, UNSPECIFIED Status: Chronic Priority: Medium Current Visit: No Qualifiers: COPD type: emphysema Emphysema type: panlobular Qualified Code(s): J43.1 - Panlobular emphysema Annotation/Comment:: No acute symptoms of her COPD. No increased work of breathing. Continue home therapy monitor. (6) Hypertension SNOMED Code(s): 60824326 Code(s): I10 - ESSENTIAL (PRIMARY) HYPERTENSION Status: Chronic Priority: Medium Current Visit: No Qualifiers: Hypertension type: essential hypertension Qualified Code(s): I10 - Essential (primary) hypertension Annotation/Comment:: Blood pressure 145/84. Continue her losartan and meto prolol. We will continue holding her hydrochlorothiazide continue to monitor. (7) Compression fracture of T12 vertebra SNOMED Code(s): 972543393, 265861836 Code(s): S22.080A - WEDGE COMPRESSION FRACTURE OF T11-T12 VERTEBRA, INIT Status: Acute Current Visit: Yes Annotation/Comment:: Acute versus subacute T12 compression fracture. Most likely the cause of her back pain which is appears to be chronic. This could be exacerbated by her fall and weakness at home. Further evaluated by CT previously ordered from previous provider. - Problem List Review Problem List Initiated/Reviewed/Updated: Yes - Assessment Assessment:: Assessment and plan as above. We will continue the hypertonic saline until normalization of her sodium. Repeat labs. VTE: High risk on enoxaparin Sepsis: Urine gram-negative rods culture pending. Blood cultures pending. No fever. White count improving. On ceftriaxone 1 g every 24 hours. Continue to follow. Lactic is normal today. Vitals stable. CODE STATUS DNR/DNI Patient is improving but needs continued inpatient observation due to her hyponatremia also concerns for sepsis. Hopefully discharge tomorrow. Physical therapy sterile to work with her back which appears to be mechanical in nature with a chronic history of a T12 compression fracture awaiting CT scan chest abdomen pelvis which was ordered previously with concerns of a pulmonary nodule which could cause her hyponatremia as well as her recurrent septic urinary tract infections.
[2020-10-11] MEDS: Sodium Chloride 3% 500 ML IV SCH (19:57)
[2020-10-11] MEDS ORDERED: cefTRIAXone 1 GM in Sodium Chloride 0.9% 100 ML IV SCH (20:00)
[2020-10-11] MEDS: Simvastatin 20 MG Tab PO SCH (20:18)
[2020-10-11] MEDS: cefTRIAXone 2 GM Vial IVPUSH SCH (20:21)
[2020-10-12] MEDS: Sodium Chloride 1 GM Tab PO SCH (07:36)
[2020-10-12] MEDS: Enoxaparin 40 MG/0.4 ML Syringe SUBCUT SCH (07:36)
[2020-10-12 07:37] VITALS: BP 159/83; PULSE 74
[2020-10-12] MEDS: Losartan 50 MG Tab PO SCH (07:37)
[2020-10-12] MEDS: Aspirin 81 MG Tab.EC PO SCH (07:37)
[2020-10-12] MEDS: cloNIDine 0.1 MG Tab PO SCH (07:37)
[2020-10-12] MEDS: Metoprolol Succinate 50 MG Tab.ER PO SCH (07:37)
[2020-10-12] MEDS: Magnesium Oxide 400 MG Tab PO SCH (07:37)
[2020-10-12] MEDS ORDERED: Potassium Chloride 10 MEQ Tab.ER PO SCH (08:00)
[2020-10-12 08:08] LABS: CHLORIDE,CL 101 mmol/L (98-107); SODIUM,NA 132 mmol/L (136-145)
[2020-10-12 08:13] LABS: ANION GAP 8.7 meq/L (7-15)
--- NOTE | 2020-10-12 10:39 | PCM.DCSUM1 ---
Discharge Summary - Discharge Data Discharge Date: 10/12/20 Discharge Disposition: Home, Self-Care 01 Condition: Good - Referral to Home Health Primary Care Physician: SKYLER Broderick - Discharge Diagnosis/Problem(s) (1) Hypokalemia SNOMED Code(s): 07023483 ICD Code: E87.6 - HYPOKALEMIA Status: Acute Problem Details: Her potassium initially upon arrival was 3.1. On discharge was 4.6. She was not placed on any supplementation at home. Her hypokalemia is most likely due to the GI loss that she was having at home. We will not place her on any supplementation at home at this time. We will have her follow-up with her primary care and recheck this upon discharge. (2) Hyponatremia SNOMED Code(s): 71494786 ICD Code: E87.1 - HYPO-OSMOLALITY AND HYPONATREMIA Status: Acute Problem Details: Note this new test but is probably sent out for a physical to proceed is really high the she was initially placed into the hospital with a sodium of 117 without any neurological findings or concerns and she is discharged with a sodium of 132 which is actually about her baseline. Her cause of her hyponatremia is most likely acute upon chronic. She also had some recent GI losses with nausea and vomiting at home. She did receive hypertonic saline while in the hospital. This could also be caused from her hydrochlorothiazide use is which was discontinued while she was in the hospital. Other causes of hyponatremia concerning for lesions possibly in the lung. CT of the chest was not overtly concerning for lesions but there is a nodular consolidation that we will have her follow-up with pulmonology for after seeing her primary care. We will will not only discontinue her hydrochlorothiazide but will decrease her sodium tablets at this time to twice a day have her recheck a primary care. (3) UTI (urinary tract infection) SNOMED Code(s): 59833317 ICD Code: N39.0 - URINARY TRACT INFECTION, SITE NOT SPECIFIED Status: Acute Problem Details: Urinary tract infection blood cultures are negative urine culture returns E. coli. Pansensitive. She was in the hospital on Rocephin. We will discharge her home on cefdinir. 1 tablet p.o. twice daily for the next 8 days. (4) CHF (congestive heart failure) SNOMED Code(s): 92825733 ICD Code: I50.9 - HEART FAILURE, UNSPECIFIED Status: Chronic Priority: Medium Problem Details: No evidence of congestive heart failure at this time. We will continue her hypertonic saline. Continue home medications other than hydrochlorothiazide. Blood pressures are appropriate and stable. Qualifiers: Heart failure chronicity: chronic (5) COPD (chronic obstructive pulmonary disease) SNOMED Code(s): 57819805 ICD Code: J44.9 - CHRONIC OBSTRUCTIVE PULMONARY DISEASE, UNSPECIFIED Status: Chronic Priority: Medium Problem Details: No acute symptoms of her COPD. No increased work of breathing. Continue home therapy monitor. Qualifiers: COPD type: emphysema Emphysema type: panlobular Qualified Code(s): J43.1 - Panlobular emphysema (6) Hypertension SNOMED Code(s): 66880308 ICD Code: I10 - ESSENTIAL (PRIMARY) HYPERTENSION Status: Chronic Priority: Medium Problem Details: Blood pressure today 159/83. She has been off her hydrochlorothiazide since she has been hospitalized due to her hyponatremia. She has an interesting dosing pattern of her metoprolol. She also is on Cozaar twice a day. Clonidine only every 12 hours. It is interesting to me that she is not on amlodipine for her blood pressure management. As we have discontinued her hydrochlorothiazide we will increase her clonidine to 3 times daily. Have this rechecked in the clinic. Consideration of amlodipine as well this will left a primary care. Qualifiers: Hypertension type: essential hypertension (7) Compression fracture of T12 vertebra SNOMED Code(s): 401863895, 340792169 ICD Code: S22.080A - WEDGE COMPRESSION FRACTURE OF T11-T12 VERTEBRA, INIT Status: Acute Problem Details: Acute versus subacute T12 compression fracture. By history this is most likely an acute T12 compression fracture. Physical therapy did evaluate the patient and no therapy was advised. She is tolerating oral Tylenol for pain relief. She has no paresthesias or functionality changes with this. Follow-up with primary care. Uninterested in any vertebroplasty that will think it is indicated with her clinical situation. (8) Lesion of [place] SNOMED Code(s): 26493199 ICD Code: N28.9 - DISORDER OF KIDNEY AND URETER, UNSPECIFIED Status: Acute Problem Details: On the CT scan that was completed while in the hospital she had too small to characterize low-attenuation lesion within the anterior cortex of the right kidney measuring about 6 mm. Requires follow-up with primary care for following of this lesion. - Patient Summary/Data Consults: Consultations 10/11/20 07:03 Consult to Physical Therapy [PT Evaluation and Treatment] [CONS] Routine Hospital Course: This patient was admitted into the hospital under inpatient status on 10-10-20 with concerns of acute on chronic hyponatremia hypokalemia urinary tract infection sepsis low back pain. Patient does have a history of underlying hyponatremia for which she takes salt tablets 4 times a day. Really appears that she has not been taking them as previously. She also had some nausea and vomiting and just generalized not well feeling prior to her hospitalization which could worsen her hyponatremia as well. Her nausea and vomiting was most likely from a urinary tract infection which her blood cultures were negative and grew out E. coli that was pansensitive. In the hospital she was placed on hypertonic saline at 15 mils an hour. Her sodium improved to 132. She was on Rocephin for her UTI will be continued on cefdinir at home. She is overall feeling much better. We will discontinue her hydrochlorothiazide at this time as this may be leading to her hyponatremia. We will increase her clonidine to 3 times daily because her blood pressures tended to creep up a little bit after the discontinuation of the hydrochlorothiazide. There was an incidental finding of a low-attenuation lesion within the anterior cortex of the right kidney measuring about 6 mm. Follow-up with primary care for following of this lesion. There was also some concern of nodular consolidation within the right upper lobe suggesting underlying infectious pneumonitis or possibly chronic atypical infection. The CT scan was completed due to the patient's hyponatremia. This left to be followed up with primary care as well as pulmonology. She will have some home health assistance after this hospitalization. Her lactic acid was normal while she was in the hospital. - Patient Instructions Other/Special Instructions: Home rest. Make sure and drink plenty of fluids. Stop the Hydrochlorothiazide. This may be contributory to your sodium or salt levels being low. Increase your clonidine to three times a day to help with BP. Tylenol or aspirin as needed for the compression fracture. Home health to help with home safety and fall prevention. For your UTI, remember your symptoms that brought you in are your symptoms of a UTI. Start Cefdinir 1 tablet twice daily for the next 8 days. RX sent to [facility]. For your salt tabs. 1 tab twice daily at this time down from 4 times a day. Follow up with your PCP early next week for recheck. Pulmonology follow up with the concerns found in your chest from the CT scan. Follow up with PCP on the lesion found on your kidney. Consider follow up Ultrasound/CT or urology referral. - Discharge Plan *PRESCRIPTION DRUG MONITORING PROGRAM REVIEWED*: Not Applicable *COPY OF PRESCRIPTION DRUG MONITORING REPORT IN PATIENT BIENVENIDO: Not Applicable Prescriptions/Med Rec: Cefdinir 300 mg PO BID #16 capsule Home Medications: Home Meds Simvastatin 20 mg PO BEDTIME 07/09/14 [History] Docusate Sodium 100 mg PO DAILY PRN 06/06/15 [History] cloNIDine [Catapres] 0.1 mg PO TID 06/08/19 [History] Losartan [Cozaar] 50 mg PO Q12HR 05/08/20 [History] Non-Formulary Medication [NF Drug] 1 each PO DAILY 05/11/20 [History] Magnesium Oxide 400 mg PO BID #60 tablet 05/12/20 [Rx] Potassium Chloride [Klor-Con M20] 20 meq PO DAILY #30 tab.er 05/12/20 [Rx] Sodium Chloride 1 tab PO BID 10/10/20 [History] Acetaminophen [Tylenol] 650 mg PO Q4H PRN tablet 10/12/20 [Rx] Aspirin [Halfprin] 81 mg PO DAILY tab.ec 10/12/20 [Rx] Cefdinir 300 mg PO BID #16 capsule 10/12/20 [Rx] Metoprolol Succinate [Toprol XL 100mg] 100 mg PO BID 10/12/20 [History] Ondansetron [Zofran ODT] 4 mg PO Q4H PRN tab.dis 10/12/20 [Rx] Ondansetron [Zofran] 4 mg IVPUSH Q4H PRN vial 10/12/20 [Rx] Sodium Chloride 1 gm PO BID tablet 10/12/20 [Rx] Sodium Chloride 0.9% [Saline Flush] 10 ml FLUSH ASDIRECTED PRN syringe 10/12/20 [Rx] bisacodyL [Dulcolax] 5 mg PO DAILY PRN tablet 10/12/20 [Rx] cloNIDine [Catapres] 0.1 mg PO Q8H tablet 10/12/20 [Rx] Patient Handouts: Hyponatremia, [id number], Urinary Tract Infection, Adult, Ssel-nz-Byan, Hypertension, Adult, [id number], Thoracic Spine Fracture, [id number]-Oxbk, Sepsis, Self Care, Adult Forms: ED Department Discharge Referrals: Margarita Isaac PA [Primary Care Provider] - - Discharge Summary/Plan Comment DC Time >30 min.: Yes Total # of Minutes for Discharge Time: 45 - General Info Date of Service: 10/12/20 Admission Dx/Problem (Free Text: Weakness Hyponatremia UTI sepsis Back pain T 12 compression fracture Subjective Update: The patient does feel quite a bit better today. She has had a much better appetite. She ate almost her entire breakfast. She has no back pain at this time. She has minimal to no back pain. She has had no recent falls trauma prior to her hospitalization stay and has no known history of compression fractures. At this time she denies any fever or chills. She offers up no complaints. No chest pain no shortness of breath or difficulty breathing. No cough or congestion. No weakness dizziness lightheadedness. No abdominal pain nausea or vomiting. No hematuria dysuria urinary frequency. No black or tarry stools. She is ambulating easily. She does not feel weak lightheaded. She feels very good and steady and ready to go home. Functional Status: Reports: Pain Controlled (Using PRN tylenol with great relief. ) - Patient Data Vitals - Most Recent: Last Vital Signs Temp 97.7 F 10/12/20 07:38 Pulse 74 10/12/20 07:38 Resp 16 10/12/20 07:38 BP 159/83 H 10/12/20 07:38 Pulse Ox 98 10/12/20 07:38 Weight - Most Recent: 135 lb 1.6 oz I&O - Last 24 hours: Intake & Output 10/11/20 10/12/20 10/12/20 22:59 06:59 14:59 Intake Total 177 150 252 Output Total 200 Balance 177 150 52 Imaging Impressions - Last 24 hrs: Patient Name: MAMIE CORREA Date of : 1935 Procedure: CT CHEST WITH CONTRAST Date of Service: 10/11/2020 EXAM: CT ABDOMEN PELVIS WITH CONTRAST, CT CHEST WITH CONTRAST INDICATION: ICD-10 N39.0 Recurrent UTI. ICD-10 E87.1 Hyponatremia. Severe hyponatremia, recurrent UTI. TECHNIQUE: 1. CT chest with IV contrast. 2. CT abdomen and pelvis with IV contrast. COMPARISON(S): CT chest 04/19/2016. FINDINGS: CT chest: Scattered reticulonodular densities identified in the upper lobes. Mild bronchiectasis within the lingula and medial segment of the right middle lobe. Nodular consolidation in the superior segment of the right lower lobe abutting the pleura measuring 1.7 cm. Mild peribronchial wall thickening involving some of the subsegmental bronchi in the right lower lobe superiorly. Trachea and proximal bronchi are grossly patent. A few prominent subcentimeter short axis prevascular/paratracheal lymph nodes with small hiatal hernia. Compression fracture deformity involving the T12 vertebra, overall chronicity of this is unknown. This is new compared to 05/08/2020. Correlate for focal back pain as this may be acute. Mild degenerative changes otherwise identified within the thoracic spine. CT abdomen/pelvis: Liver, pancreas, gallbladder, spleen, bilateral adrenal glands are grossly unremarkable in appearance. Too small to characterize low- attenuation lesion within the right kidney anterior cortex measuring 6 mm. Otherwise bilateral kidneys, ureters, and urinary bladder appear to be within normal limits. No perinephric fluid collection, hydronephrosis or abnormal enhancement identified. Stomach and small bowel appear to be within normal limits. Colon is unremarkable in appearance. There is an appendicolith within the distal tip of the appendix 6 to 7 mm in diameter and may contain some fluid within the lumen. No periappendiceal fat stranding. No free intraperitoneal air or free fluid within the abdomen or pelvis. Small locules of gas in the subcutaneous soft tissues in the right anterior abdominal wall likely from prior injection. Uterus and adnexa are unremarkable. Abdominal vasculature is unremarkable for the patient's age. Multilevel degenerative changes in the lumbar spine with advanced degenerative disease at L4-5 and L5-S1. Mild anterolisthesis of L3 in relation to L4. Neuroforaminal narrowing bilaterally at L5-S1. IMPRESSION: 1. Reticular nodular airspace opacities in bilateral upper lobes with areas of bronchiectasis in the lingula and middle lobe and left lung base. Mild nodular consolidation within the right upper lobe posteriorly abutting the pleura. This suggests underlying infectious pneumonitis or possible chronic atypical infection. Some of this is present on the previous study dated 04/19/2016. 2. Too small to characterize low-attenuation lesion within the anterior cortex of the right kidney measuring around 6 mm. 3. Appendicolith within the tip of the appendix. The appendix measures 6-7 mm in diameter. No fat stranding. Fluid attenuation within the appendiceal lumen. No additional findings to suggest obvious appendicitis. 4. Compression fracture deformity involving the T12 vertebra which is new compared to 05/08/2020. The overall chronicity of this is unknown and this may represent an acute fracture. Recommend correlation for focal pain. MRI imaging could be performed for further evaluation. 5. 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 6. Unremarkable appearance of the urinary bladder. Edited by: moo 10/11/2020 12:30 PM CDT Finalized by: Juaquin Crespo MD on 10/11/2020 12:35 PM CDT Patient/Procedure Information: [facility] MRN/MICK: [id number]/ Order Number: [id number] Accession Number: [id number] Ordering Provider: YADIEL SANCHEZ Authorizing Provider: YADIEL SANCHEZ Lab Results - Last 24 hrs: Laboratory Results - last 24 hr 10/11/20 10/11/20 10/11/20 Range/Units 11:08 11:08 11:08 WBC 13.1 H (4.0-10.2) K/uL RBC 4.36 (3.77-5.09) M/uL Hgb 12.7 (11.7-15.5) g/dL Hct 36.1 (34.0-46.0) % MCV 82.8 L (84.0-98.0) fL MCH 29.1 (28.2-33.3) pg MCHC 35.2 (31.7-36.0) g/dL RDW 13.4 (11.2-14.1) % Plt Count 352 H (150-350) K/uL MPV 9.20 (7.00-11.50) fL Neut % (Auto) (45.0-80.0) % Lymph % (Auto) (10.0-50.0) % Reynolds % (Auto) (2.0-14.0) % Eos % (Auto) (0.0-5.0) % Baso % (Auto) (0.0-2.0) % Neut # (Auto) (1.40-7.00) K/uL Lymph # (Auto) (0.50-3.50) K/uL Reynolds # (Auto) (0.00-1.00) K/uL Eos # (Auto) (0.00-0.50) K/uL Baso # (Auto) (0.00-0.20) K/uL Sodium 127 L (136-145) mmol/L Potassium 5.0 (3.5-5.1) mmol/L Chloride 97 L (98-107) mmol/L Carbon Dioxide 25.5 (21.0-32.0) mmol/L Anion Gap 9.5 (7-15) meq/L BUN 7 (7-18) mg/dL Creatinine 0.72 (0.51-1.17) mg/dL Est Cr Clr Drug Dosing 41.78 mL/min Estimated GFR (MDRD) > 60 mL/min Glucose 102 H (70-99) mg/dL Lactic Acid 1.5 (0.4-2.0) mmol/L Calcium 8.0 L (8.5-10.1) mg/dL C-Reactive Protein (<=0.9) mg/dL 10/12/20 10/12/20 10/12/20 Range/Units 07:30 07:41 07:41 WBC 8.8 (4.0-10.2) K/uL RBC 4.26 (3.77-5.09) M/uL Hgb 12.4 (11.7-15.5) g/dL Hct 36.4 (34.0-46.0) % MCV 85.4 (84.0-98.0) fL MCH 29.1 (28.2-33.3) pg MCHC 34.1 (31.7-36.0) g/dL RDW 13.9 (11.2-14.1) % Plt Count 326 (150-350) K/uL MPV (7.00-11.50) fL Neut % (Auto) 72.4 (45.0-80.0) % Lymph % (Auto) 16.3 (10.0-50.0) % Reynolds % (Auto) 8.1 (2.0-14.0) % Eos % (Auto) 2.9 (0.0-5.0) % Baso % (Auto) 0.3 (0.0-2.0) % Neut # (Auto) 6.33 (1.40-7.00) K/uL Lymph # (Auto) 1.43 (0.50-3.50) K/uL Reynolds # (Auto) 0.71 (0.00-1.00) K/uL Eos # (Auto) 0.25 (0.00-0.50) K/uL Baso # (Auto) 0.03 (0.00-0.20) K/uL Sodium 132 L (136-145) mmol/L Potassium 4.6 (3.5-5.1) mmol/L Chloride 101 (98-107) mmol/L Carbon Dioxide 26.9 (21.0-32.0) mmol/L Anion Gap 8.7 (7-15) meq/L BUN 6 L (7-18) mg/dL Creatinine 0.68 (0.51-1.17) mg/dL Est Cr Clr Drug Dosing 44.24 mL/min Estimated GFR (MDRD) > 60 mL/min Glucose 99 (70-99) mg/dL Lactic Acid 0.9 (0.4-2.0) mmol/L Calcium 7.9 L (8.5-10.1) mg/dL C-Reactive Protein 1.4 H (<=0.9) mg/dL SHANELL Results - Last 24 hrs: Microbiology 10/10/20 19:30 Urine Culture - Final Urine, Voided Escherichia Coli 10/10/20 19:00 Aerobic Blood Culture - Preliminary Blood - Venous - Lab Draw NO GROWTH AFTER 1 DAY 10/10/20 18:47 Aerobic Blood Culture - Preliminary Blood - Venous NO GROWTH AFTER 1 DAY Med Orders - Current: Current Medications Acetaminophen (Acetaminophen 325 Mg Tab) 650 mg PO Q4H PRN PRN Reason: Pain (Mild 1-3)/fever Last Admin: 10/11/20 22:17 Dose: 650 mg Documented by: Aspirin (Aspirin 81 Mg Tab.Ec) 81 mg PO DAILY DENISSE Last Admin: 10/12/20 07:37 Dose: 81 mg Documented by: Bisacodyl (Bisacodyl 5 Mg Tab) 5 mg PO DAILY PRN PRN Reason: Constipation Clonidine HCl (Clonidine 0.1 Mg Tab) 0.1 mg PO Q12HR [facility] [place] Last Admin: 10/12/20 07:37 Dose: 0.1 mg Documented by: Enoxaparin Sodium (Enoxaparin 40 Mg/0.4 Ml Syringe) 40 mg SUBCUT DAILY [facility] [place] Last Admin: 10/12/20 07:36 Dose: 40 mg Documented by: Sodium Chloride (Sodium Chloride 3%) 500 mls @ 15 mls/hr IV ASDIRECTED [facility] [place] Last Admin: 10/11/20 19:57 Dose: 15 mls/hr Documented by: Ceftriaxone Sodium 1 gm/ (Sodium Chloride) 100 mls @ 200 mls/hr IV Q24H [facility] [place] Last Admin: 10/11/20 20:33 Dose: 200 mls/hr Documented by: Losartan Potassium (Losartan 50 Mg Tab) 50 mg PO Q12HR [facility] [place] Last Admin: 10/12/20 07:37 Dose: 50 mg Documented by: Magnesium Oxide (Magnesium Oxide 400 Mg Tab) 400 mg PO BID [facility] [place] Last Admin: 10/12/20 07:37 Dose: 400 mg Documented by: Metoprolol Succinate (Metoprolol Succinate 50 Mg Tab.Er) 100 mg PO BEDTIME [facility] [place] Last Admin: 10/11/20 20:19 Dose: 100 mg Documented by: Metoprolol Succinate (Metoprolol Succinate 50 Mg Tab.Er) 50 mg PO DAILY [facility] [place] Last Admin: 10/12/20 07:37 Dose: 50 mg Documented by: Ondansetron HCl (Ondansetron 4 Mg Tab.Dis) 4 mg PO Q4H PRN PRN Reason: Nausea/Vomiting Ondansetron HCl (Ondansetron 4 Mg/2 Ml Sdv) 4 mg IVPUSH Q4H PRN PRN Reason: Nausea/Vomiting Simvastatin (Simvastatin 20 Mg Tab) 20 mg PO BEDTIME [facility] [place] Last Admin: 10/11/20 20:18 Dose: 20 mg Documented by: Sodium Chloride (Sodium Chloride 0.9% 10 Ml Syringe) 10 ml FLUSH ASDIRECTED PRN PRN Reason: Keep Vein Open Last Admin: 10/11/20 20:41 Dose: 10 ml Documented by: Sodium Chloride (Sodium Chloride 1 Gm Tab) 1 gm PO QID [facility] [place] Last Admin: 10/12/20 07:36 Dose: 1 gm Documented by: Discontinued Medications Ceftriaxone Sodium (Ceftriaxone 2 Gm Vial) 1 gm IVPUSH Q24H [facility] [place] Last Admin: 10/11/20 20:21 Dose: Not Given Documented by: Potassium Chloride/Dextrose/Sod Cl (D5 1/2 Ns W/ 40 Meq/L Kcl) 1,000 mls @ 200 mls/hr IV ASDIRECTED [facility] [place] Last Admin: 10/11/20 00:36 Dose: 200 mls/hr Documented by: Ceftriaxone Sodium 1 gm/ (Sodium Chloride) 100 mls @ 200 mls/hr IV Q24H [facility] [place] Last Admin: 10/10/20 20:40 Dose: Not Given Documented by: Iopamidol (Iopamidol 612 Mg/Ml 100 Ml Bottle) 100 ml IVPUSH ONETIME ONE Stop: 10/11/20 07:40 Last Admin: 10/11/20 08:25 Dose: 100 ml Documented by: Potassium Chloride (Potassium Chloride 20 Meq Tab.Er) 20 meq PO TID [facility] [place] Last Admin: 10/11/20 18:22 Dose: 20 meq Documented by: Potassium Chloride (Potassium Chloride 10 Meq Tab.Er) 20 meq PO WITHBREAKFAST [facility] [place] - Exam General: Reports: Alert, Oriented HEENT: Reports: Pupils Equal, Pupils Reactive, EOMI Neck: Reports: Supple Lungs: Reports: Clear to Auscultation, Normal Respiratory Effort Cardiovascular: Reports: Regular Rate, Regular Rhythm GI/Abdominal Exam: Normal Bowel Sounds, Soft, Non-Tender, No Distention, No Mass (Female) Exam: Deferred Rectal (Female) Exam: Deferred Back Exam: Reports: Normal Inspection, Full Range of Motion Extremities: Normal Inspection, Normal Range of Motion, No Pedal Edema, Normal Capillary Refill Skin: Reports: Warm, Dry, Intact Neurological: Reports: No New Focal Deficit Psy/Mental Status: Reports: Alert, Normal Affect, Normal Mood
[2020-10-12] MEDS: Acetaminophen 325 MG Tab PO PRN (11:56)
[2020-10-12] MEDS ORDERED: cloNIDine 0.1 MG Tab PO SCH (16:00)
[2020-10-12] MEDS ORDERED: Sodium Chloride 1 GM Tab PO SCH (18:00)
== END 2020-10-12 12:18 | disposition home or self-care (01) | DRG 872 ==
LOC: LL.ED 17:17 → LL.MS 19:15
PROVIDERS: ADMIT Physician Assistant; ATTEND Physician Assistant
DX: A41.51 Sepsis due to Escherichia coli [E. coli] (principal); E87.1 Hypo-osmolality and hyponatremia; R53.1 Weakness; S22.080A Wedge compression fracture of T11-T12 vertebra, initial encounter for closed fracture; N39.0 Urinary tract infection, site not specified; D72.829 Elevated white blood cell count, unspecified; B96.20 Unspecified Escherichia coli [E. coli] as the cause of diseases classified elsewhere; I50.9 Heart failure, unspecified; J43.1 Panlobular emphysema; N28.9 Disorder of kidney and ureter, unspecified; J44.9 Chronic obstructive pulmonary disease, unspecified; Z20.822 Contact with and (suspected) exposure to COVID-19; Z66 Do not resuscitate; K21.9 Gastro-esophageal reflux disease without esophagitis; J30.9 Allergic rhinitis, unspecified; N32.81 Overactive bladder; H54.7 Unspecified visual loss; E78.00 Pure hypercholesterolemia, unspecified; I11.0 Hypertensive heart disease with heart failure; T50.2X5A Adverse effect of carbonic-anhydrase inhibitors, benzothiadiazides and other diuretics, initial encounter; H40.9 Unspecified glaucoma; K59.09 Other constipation; R32 Unspecified urinary incontinence; M19.90 Unspecified osteoarthritis, unspecified site; E87.6 Hypokalemia; I49.8 Other specified cardiac arrhythmias; K44.9 Diaphragmatic hernia without obstruction or gangrene; M81.0 Age-related osteoporosis without current pathological fracture; M54.9 Dorsalgia, unspecified; M54.2 Cervicalgia; G89.29 Other chronic pain; Z88.0 Allergy status to penicillin; Z79.82 Long term (current) use of aspirin; Z79.899 Other long term (current) drug therapy; Z98.51 Tubal ligation status; Z98.41 Cataract extraction status, right eye; Z98.42 Cataract extraction status, left eye; Z91.81 History of falling; Z98.890 Other specified postprocedural states; W06.XXXA Fall from bed, initial encounter
CPT/HCPCS: 36415; 70450; 71046; 71260; 72100; 73660-RT; 74177; 80048; 80053; 81001; 83605; 83690; 83735; 84484; 85025; 85027; 86140; 87040; 87086; 87088; 87186; 93005; 93010; 97161-GP; 97530-GP; 99223; 99232; 99239; 99285-25; A9270-GY; J0696; J1650; J3480; J7131; Q9967; U0002

== ENCOUNTER 2020-11-07 15:32 | Emergency (ER) | payer MEDICARE, OTHER ==
--- NOTE | 2020-11-07 15:52 | EDM.PDOC ---
ED HPI GENERAL MEDICAL PROBLEM - General Chief Complaint: General Stated Complaint: hypertension Time Seen by Provider: 11/07/20 15:37 Source of Information: Reports: Patient History Limitations: Reports: No Limitations - History of Present Illness INITIAL COMMENTS - FREE TEXT/NARRATIVE: Patient comes to ER with complaint of elevated BP. Systolic 213/[address] [facility]. Also noted 180/100 and 198/120 Only other complaint is intermittent chest tightness. No SOB. No other reported changes. Admits to being under a lot of stress. is hospitalized in [place] with pneumonia/Covid. Is taking her meds as prescribed. - Related Data Allergies Allergy/AdvReac Type Severity Reaction Status Date / Time Penicillins Allergy Syncope Verified 11/07/20 15:53 Home Meds: Home Meds Simvastatin 20 mg PO BEDTIME 07/09/14 [History] cloNIDine [Catapres] 0.1 mg PO TID 06/08/19 [History] Losartan [Cozaar] 50 mg PO Q12HR 05/08/20 [History] Non-Formulary Medication [NF Drug] 1 each PO DAILY 05/11/20 [History] Magnesium Oxide 400 mg PO BID #60 tablet 05/12/20 [Rx] Potassium Chloride [Klor-Con M20] 20 meq PO DAILY #30 tab.er 05/12/20 [Rx] Acetaminophen [Tylenol] 650 mg PO Q4H PRN tablet 10/12/20 [Rx] Aspirin [Halfprin] 81 mg PO DAILY tab.ec 10/12/20 [Rx] Metoprolol Succinate [Toprol XL 100mg] 100 mg PO BID 10/12/20 [History] Ondansetron [Zofran ODT] 4 mg PO Q4H PRN tab.dis 10/12/20 [Rx] Sodium Chloride 1 gm PO BID tablet 10/12/20 [Rx] Methenamine Hippurate [Hiprex] 1 tab PO BID 11/07/20 [History] Past Medical History HEENT History: Reports: Allergic Rhinitis, Cataract, Glaucoma, Impaired Vision, Other (See Below) Other HEENT History: No medications required for her allergic rhinitis. A, resolved with previous laser treatments at time of cataract surgery as below. Patient does wear glasses. Cardiovascular History: Reports: Arrhythmia, Heart Failure, High Cholesterol, Hypertension, Syncope, Other (See Below) Other Cardiovascular History: Borderline incomplete right bundle branch block, PVCs, and PVCs. Syncope in February 2014. Respiratory History: Reports: Bronchitis, Recurrent, COPD, Intubation, Previous, Other (See Below) Other Respiratory History: Stable pulmonary nodules by CT scan. Gastrointestinal History: Reports: Chronic Constipation, GERD, Hiatal Hernia, Other (See Below) Other Gastrointestinal History: Large hiatal hernia by CT scan. Genitourinary History: Reports: Urinary Incontinence, Other (See Below) Other Genitourinary History: Overactive bladder MORTICIAN SUPPLIES SALES REPRESENTATIVE History: Reports: Other MORTICIAN SUPPLIES SALES REPRESENTATIVE History: Menopause in her early 40s. Full term without complications during pregnancies or deliveries with exception of one full-term stillborn. Musculoskeletal History: Reports: Arthritis, Back Pain, Chronic, Fracture, Neck Pain, Chronic, Osteoarthritis, Osteoporosis, Other (See Below) Other Musculoskeletal History: Right wrist fracture in her 30s. Neurological History: Reports: None Psychiatric History: Reports: None Endocrine/Metabolic History: Reports: Hypokalemia Hematologic History: Reports: None Immunologic History: Reports: None Oncologic (Cancer) History: Reports: None Dermatologic History: Reports: None - Infectious Disease History Infectious Disease History: Reports: Chicken Pox, Measles, Mumps - Past Surgical History Head Surgeries/Procedures: Reports: None HEENT Surgical History: Reports: Cataract Surgery, Other (See Below) Other HEENT Surgeries/Procedures: Bilateral cataract surgery in 2001 with concomitant laser treatments for her glaucoma. My molar in the with additional multiple teeth extractions and implants. GI Surgical History: Reports: Colonoscopy, EGD, Other (See Below) Other GI Surgeries/Procedures: Last colonoscopy on 11/18/14 with previous colonoscopy in 2004. EGD in 2009. Female Surgical History: Reports: Tubal Ligation, Other (See Below) Other Female Surgeries/Procedures: Tubal ligation at age 46. Endometrial biopsy at about age 41. Musculoskeletal Surgical History: Reports: Shoulder Surgery Other Musculoskeletal Surgeries/Procedures:: Right foot bunionectomy with concomitant fourth and fifth hammertoe revision on 09/10/02. Left rotator cuff repair in 2005. - Past Imaging History Past Imaging History: Reports: Cardiac Echo (07/20/14 with ejection fraction of 6065 percent.), CAT Scan (CT of the brain on 05/17/15 and 03/29/14. CT of the chest with IV contrast on 04/19/16 and 11/12/14. Previous serial CTs of the chest on 06/30/13, 06/25/08, etc.), DEXA Scan (10/11/14), Mammogram (Last on 12/24/18.), MRA (MRA/MRI of the head and neck on 06/06/15.), MRI (Right shoulder on 12/17/16.), Stress Testing (Negative Cardiolite stress test on 05/26/15 with ejection fraction of 90%. Previous Cardiolite stress test on 03/11/08 with ejection fraction of 61%.) Social & Family History - Family History Family Medical History: Unobtainable - Caffeine Use Caffeine Use: Reports: Coffee - Living Situation & Occupation Living situation: Reports: ([birth year], 5 children), with Family Occupation: Retired (From the [employer]) ED ROS GENERAL - Review of Systems Review Of Systems: Comprehensive ROS is negative, except as noted in HPI. ED EXAM, GENERAL - Physical Exam Exam: See Below Exam Limited By: No Limitations General Appearance: Alert, WD/WN, No Apparent Distress Eye Exam: Bilateral Eye: EOMI, PERRL Ears: Hearing Grossly Normal Nose: No: Nasal Deformity, Nasal Swelling, Nasal Drainage Throat/Mouth: Normal Lips, Normal Voice, No Airway Compromise Head: Atraumatic, Normocephalic Neck: Supple Respiratory/Chest: No Respiratory Distress, Lungs Clear, Normal Breath Sounds, No Accessory Muscle Use, Chest Non-Tender Cardiovascular: Normal Peripheral Pulses, Regular Rate, Rhythm, No Edema, No Murmur GI/Abdominal: Normal Bowel Sounds, Soft, Non-Tender, No Distention (Female) Exam: Deferred Rectal (Female) Exam: Deferred Back Exam: No: CVA Tenderness (L), CVA Tenderness (R), Muscle Spasm, Paraspinal Tenderness, Vertebral Tenderness Extremities: Normal Inspection, No Pedal Edema, Normal Capillary Refill Neurological: Alert, Oriented, Normal Cognition, No Motor/Sensory Deficits Psychiatric: Normal Affect, Normal Mood Skin Exam: Warm, Dry, Intact, Normal Color #1 Interpretation EKG Date: 11/07/20 Time: 16:16 Rhythm: NSR Rate (Beats/Min): 60 [place]: Normal P-Wave: Present QRS: Normal ST-T: Normal QT: Normal Course - Vital Signs Last Recorded V/S: Last Vital Signs Temp 36.8 C 11/07/20 15:38 Pulse 57 L 11/07/20 19:23 Resp 14 11/07/20 19:23 BP 196/82 H 11/07/20 19:23 Pulse Ox 96 11/07/20 19:23 - Orders/Labs/Meds Orders: Active Orders 24 hr Category Date Time Status Chest 2V [CR] Stat Exams 11/07/20 15:48 Taken EKG 12 Lead [EK] Stat Ther 11/07/20 16:01 Ordered Labs: Laboratory Tests 11/07/20 11/07/20 11/07/20 Range/Units 15:33 15:46 15:47 WBC 9.4 (4.0-10.2) K/uL RBC 4.60 (3.77-5.09) M/uL Hgb 13.4 (11.7-15.5) g/dL Hct 40.3 (34.0-46.0) % MCV 87.6 (84.0-98.0) fL MCH 29.1 (28.2-33.3) pg MCHC 33.3 (31.7-36.0) g/dL RDW 15.5 H (11.2-14.1) % Plt Count 321 (150-350) K/uL Neut % (Auto) 71.0 (45.0-80.0) % Lymph % (Auto) 18.3 (10.0-50.0) % Page % (Auto) 8.7 (2.0-14.0) % Eos % (Auto) 1.6 (0.0-5.0) % Baso % (Auto) 0.4 (0.0-2.0) % Neut # (Auto) 6.69 (1.40-7.00) K/uL Lymph # (Auto) 1.72 (0.50-3.50) K/uL [place] # (Auto) 0.82 (0.00-1.00) K/uL Eos # (Auto) 0.15 (0.00-0.50) K/uL Baso # (Auto) 0.04 (0.00-0.20) K/uL D-Dimer, Quantitative (0-400) ng/mL Sodium 139 (136-145) mmol/L Potassium 4.5 (3.5-5.1) mmol/L Chloride 101 (98-107) mmol/L Carbon Dioxide 30.4 (21.0-32.0) mmol/L Anion Gap 7.6 (7-15) meq/L BUN 8 (7-18) mg/dL Creatinine 0.72 (0.51-1.17) mg/dL Est Cr Clr Drug Dosing TNP Estimated GFR (MDRD) > 60 mL/min Glucose 93 (70-99) mg/dL Calcium 9.2 (8.5-10.1) mg/dL Magnesium 2.4 (1.8-2.4) mg/dL Total Bilirubin 0.5 (0.2-1.0) mg/dL AST 16 (15-37) U/L ALT 28 (12-78) U/L Alkaline Phosphatase 91 (46-116) IU/L Troponin I High Sens 9 (<=51) ng/L NT-Pro-B Natriuret Pep 1502 H (0-125) pg/mL Total Protein 7.3 (6.4-8.2) g/dL Albumin 3.8 (3.4-5.0) g/dL Specimen Type Urine Color Urine Appearance Urine pH (5.0-9.0) Ur Specific [place] (1.005-1.030) Urine Protein (NEGATIVE) mg/dL Urine Glucose (UA) (NEGATIVE) mg/dL Urine Ketones (NEGATIVE) mg/dL Urine Occult Blood (NEGATIVE) Urine Nitrite (NEGATIVE) Urine Bilirubin (NEGATIVE) Urine Urobilinogen (0.2-1.0) E.U./dL Ur Leukocyte Esterase (NEGATIVE) Urine RBC /HPF Urine WBC /HPF Ur Epithelial Cells /LPF Urine Bacteria (NONE TO FEW) /HPF SARS-CoV-2 RNA (MYRIAM) Negative (NEGATIVE) 11/07/20 11/07/20 Range/Units 15:48 16:40 WBC (4.0-10.2) K/uL RBC (3.77-5.09) M/uL Hgb (11.7-15.5) g/dL Hct (34.0-46.0) % MCV (84.0-98.0) fL MCH (28.2-33.3) pg MCHC (31.7-36.0) g/dL RDW (11.2-14.1) % Plt Count (150-350) K/uL Neut % (Auto) (45.0-80.0) % Lymph % (Auto) (10.0-50.0) % Page % (Auto) (2.0-14.0) % Eos % (Auto) (0.0-5.0) % Baso % (Auto) (0.0-2.0) % Neut # (Auto) (1.40-7.00) K/uL Lymph # (Auto) (0.50-3.50) K/uL [place] # (Auto) (0.00-1.00) K/uL Eos # (Auto) (0.00-0.50) K/uL Baso # (Auto) (0.00-0.20) K/uL D-Dimer, Quantitative 190 (0-400) ng/mL Sodium (136-145) mmol/L Potassium (3.5-5.1) mmol/L Chloride (98-107) mmol/L Carbon Dioxide (21.0-32.0) mmol/L Anion Gap (7-15) meq/L BUN (7-18) mg/dL Creatinine (0.51-1.17) mg/dL Est Cr Clr Drug Dosing Estimated GFR (MDRD) mL/min Glucose (70-99) mg/dL Calcium (8.5-10.1) mg/dL Magnesium (1.8-2.4) mg/dL Total Bilirubin (0.2-1.0) mg/dL AST (15-37) U/L ALT (12-78) U/L Alkaline Phosphatase (46-116) IU/L Troponin I High Sens (<=51) ng/L NT-Pro-B Natriuret Pep (0-125) pg/mL Total Protein (6.4-8.2) g/dL Albumin (3.4-5.0) g/dL Specimen Type Urinvoid Urine Color Light yellow Urine Appearance Slightly cloudy Urine pH 7.0 (5.0-9.0) Ur Specific [place] 1.015 (1.005-1.030) Urine Protein Negative (NEGATIVE) mg/dL Urine Glucose (UA) Negative (NEGATIVE) mg/dL Urine Ketones Negative (NEGATIVE) mg/dL Urine Occult Blood Trace-lysed H (NEGATIVE) Urine Nitrite Negative (NEGATIVE) Urine Bilirubin Negative (NEGATIVE) Urine Urobilinogen 0.2 (0.2-1.0) E.U./dL Ur Leukocyte Esterase Negative (NEGATIVE) Urine RBC 0-5 /HPF Urine WBC 0-5 /HPF Ur Epithelial Cells Rare /LPF Urine Bacteria Moderate H (NONE TO FEW) /HPF SARS-CoV-2 RNA (MYRIAM) (NEGATIVE) Meds: Medications Discontinued Medications Generic Name Dose Route Start Last Admin Trade Name Ning PRN Reason Stop Dose Admin Clonidine HCl 0.1 mg 11/07/20 16:05 11/07/20 16:34 Clonidine 0.1 Mg Tab PO 11/07/20 16:06 0.1 mg ONETIME ONE Administration Hydrochlorothiazide 12.5 mg 11/07/20 19:32 Hydrochlorothiazide 25 Mg Tab PO 11/07/20 19:33 ONETIME ONE Metoprolol Tartrate 25 mg 11/07/20 18:04 11/07/20 18:13 Metoprolol Tartrate 25 Mg Tab PO 11/07/20 18:05 25 mg ONETIME ONE Administration - Re-Assessments/Exams Free Text/Narrative Re-Assessment/Exam: 11/07/20 19:37 Labs ordered. Chest xray suggested mild CHF/Radiology review pending. CBC/Chem/Mg/Trop/DDimer/UA unremarkable. ProBNP over 4000. Covid negative. Patient given Clonidine. Small dose Metoprolol added when no change in BP noted. Patient observed several hours. Manual BP of 182/79 obtained at 19:40. Patient feels better and has no complaints at this time. Would like to go home. May have stress component to current BP exacerbation. Will have patient take a small dose of HCTZ once she is home. She is to follow up with Marla tomorrow afternoon for recheck of BP and medication adjustment as needed. Patient says she was on a 'water pill' in past but it was discontinued and she cannot recall why. She may benefit from being restarted on small dose of diuretic. Precautions reviewed. To follow up at ER if she has sudden worsening problems. Departure - Departure Time of Disposition: 19:42 Disposition: Home, Self-Care 01 Condition: Good Clinical Impression: Hypertensive urgency - Discharge Information *PRESCRIPTION DRUG MONITORING PROGRAM REVIEWED*: Not Applicable *COPY OF PRESCRIPTION DRUG MONITORING REPORT IN PATIENT BIENVENIDO: Not Applicable Referrals: Margarita Isaac PA [Primary Care Provider] - Forms: ED Department Discharge Additional Instructions: Take the HCTZ either tonight or tomorrow morning. Start keeping a BP journal again and take your blood pressure after you wake up, early-mid afternoon, and evening. This will help Margarita know if medication adjustment is working. See how your blood pressure is when you follow up with Margarita tomorrow at 2pm. Dis cuss what kind of medication change might be best. Things you could try are adding a water pill (small dose) once a day or every other day....or trying something else like Hydralazine (remember that is a bit of a pain as it is three times a day) Return to the ER if you have worsening blood pressure problems again, especially if you start having neurologic symptoms/headache etc. Sepsis Event Note (ED) - Evaluation Sepsis Screening Result: No Definite Risk - Focused Exam Vital Signs: Vital Signs Temp Pulse Pulse Resp BP BP BP 11/07/20 19:23 57 L 14 196/82 H 11/07/20 18:13 62 178/96 H 11/07/20 17:29 198/98 H 11/07/20 16:34 180/100 H 11/07/20 15:45 180/100 H 11/07/20 15:38 36.8 C 63 18 212/101 H Pulse Ox 11/07/20 19:23 96 11/07/20 18:13 11/07/20 17:29 11/07/20 16:34 11/07/20 15:45 11/07/20 15:38 96 - My Orders Last 24 Hours: My Active Orders 11/07/20 15:48 Chest 2V [CR] Stat 11/07/20 16:01 EKG 12 Lead [EK] Stat - Assessment/Plan Last 24 Hours: My Active Orders 11/07/20 15:48 Chest 2V [CR] Stat 11/07/20 16:01 EKG 12 Lead [EK] Stat
[2020-11-07] MEDS ORDERED: cloNIDine 0.1 MG Tab PO ONE (16:05)
[2020-11-07 16:44] LABS: ANION GAP 7.6 meq/L (7-15); CHLORIDE,CL 101 mmol/L (98-107); SODIUM,NA 139 mmol/L (136-145)
[2020-11-07] MEDS ORDERED: Metoprolol Tartrate 25 MG Tab PO ONE (18:04)
[2020-11-07 19:23] VITALS: PULSE 57
[2020-11-07] MEDS ORDERED: Hydrochlorothiazide 25 MG Tab PO ONE (19:32)
[2020-11-07 19:41] VITALS: BP 182/79
== END 2020-11-07 19:50 | disposition home or self-care (01) ==
LOC: LL.ED 15:32
DX: I16.0 Hypertensive urgency (principal); I11.0 Hypertensive heart disease with heart failure; I50.9 Heart failure, unspecified; E78.00 Pure hypercholesterolemia, unspecified; J44.9 Chronic obstructive pulmonary disease, unspecified; Z88.0 Allergy status to penicillin; Z79.899 Other long term (current) drug therapy; Z20.822 Contact with and (suspected) exposure to COVID-19
CPT/HCPCS: 36415; 71046; 80053; 81001; 83735; 83880; 84484; 85025; 85379; 93005; 99284; A9270; U0002; 93010

== ENCOUNTER 2020-11-24 16:29 | Emergency (ER) | payer MEDICARE, OTHER ==
[2020-11-24] MEDS ORDERED: cloNIDine 0.1 MG Tab PO ONE (16:40)
[2020-11-24 16:46] VITALS: BP 205/88
[2020-11-24 16:59] VITALS: PULSE 84
[2020-11-24 17:22] LABS: ANION GAP 9.8 meq/L (7-15); CHLORIDE,CL 96 mmol/L (98-107); SODIUM,NA 132 mmol/L (136-145)
--- NOTE | 2020-11-25 10:42 | EDM.PDOC ---
ED HPI GENERAL MEDICAL PROBLEM - General Chief Complaint: Cardiovascular Problem Stated Complaint: High blood pressure Time Seen by Provider: 11/24/20 16:45 Source of Information: Reports: Patient, Family History Limitations: Reports: No Limitations - History of Present Illness INITIAL COMMENTS - FREE TEXT/NARRATIVE: Pt. presents to ER with complaints of hypertension. She has been checking her BP today and it has been in the 200/120 range consistently with home monitor. She states that she is not experiencing any chest pain, shortness of breath, headache, or diaphoresis. Pt. states that she contacted her PCP who advised her to take a second 0.1mg clonidine and then to recheck her BP. She was still hypertensive so she came to ER. Pt. has been under significant stress recently ( of spouse) which family feels is contributing to her BP being elevated. Pt. has had both covid vaccinations. No fever or chills. No nausea, vomiting, or diarrhea. No problems with speech or ambulation. Pt. was approx. 205/110 on arrival to ER. Her manual BP shortly after arrival was approx. 150/110. Onset Date: 11/24/20 Location: Reports: Generalized - Related Data Allergies Allergy/AdvReac Type Severity Reaction Status Date / Time Penicillins Allergy Syncope Verified 11/24/20 16:52 Home Meds: Home Meds Simvastatin 20 mg PO BEDTIME 07/09/14 [History] cloNIDine [Catapres] 0.1 mg PO TID 06/08/19 [History] Losartan [Cozaar] 50 mg PO Q12HR 05/08/20 [History] Non-Formulary Medication [NF Drug] 1 each PO DAILY 05/11/20 [History] Magnesium Oxide 400 mg PO BID #60 tablet 05/12/20 [Rx] Potassium Chloride [Klor-Con M20] 20 meq PO DAILY #30 tab.er 05/12/20 [Rx] Acetaminophen [Tylenol] 650 mg PO Q4H PRN tablet 10/12/20 [Rx] Aspirin [Halfprin] 81 mg PO DAILY tab.ec 10/12/20 [Rx] Metoprolol Succinate [Toprol XL 100mg] 100 mg PO BID 10/12/20 [History] Ondansetron [Zofran ODT] 4 mg PO Q4H PRN tab.dis 10/12/20 [Rx] Sodium Chloride 1 gm PO BID tablet 10/12/20 [Rx] Methenamine Hippurate [Hiprex] 1 tab PO BID 11/07/20 [History] Past Medical History HEENT History: Reports: Allergic Rhinitis, Cataract, Glaucoma, Impaired Vision, Other (See Below) Other HEENT History: No medications required for her allergic rhinitis. A, resolved with previous laser treatments at time of cataract surgery as below. Patient does wear glasses. Cardiovascular History: Reports: Arrhythmia, Heart Failure, High Cholesterol, Hypertension, Syncope, Other (See Below) Other Cardiovascular History: Borderline incomplete right bundle branch block, PVCs, and PVCs. Syncope in February 2014. Respiratory History: Reports: Bronchitis, Recurrent, COPD, Intubation, Previous, Other (See Below) Other Respiratory History: Stable pulmonary nodules by CT scan. Gastrointestinal History: Reports: Chronic Constipation, GERD, Hiatal Hernia, Other (See Below) Other Gastrointestinal History: Large hiatal hernia by CT scan. 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 Full term without complications during pregnancies or deliveries with exception of one full-term stillborn. Musculoskeletal History: Reports: Arthritis, Back Pain, Chronic, Fracture, Neck Pain, Chronic, Osteoarthritis, Osteoporosis, Other (See Below) Other Musculoskeletal History: Right wrist fracture in her 30s. Neurological History: Reports: None Psychiatric History: Reports: None Endocrine/Metabolic History: Reports: Hypokalemia Hematologic History: Reports: None Immunologic History: Reports: None Oncologic (Cancer) History: Reports: None Dermatologic History: Reports: None - Infectious Disease History Infectious Disease History: Reports: Chicken Pox, Measles, Mumps - Past Surgical History Head Surgeries/Procedures: Reports: None HEENT Surgical History: Reports: Cataract Surgery, Other (See Below) Other HEENT Surgeries/Procedures: Bilateral cataract surgery in 2001 with c oncomitant laser treatments for her glaucoma. My molar in the with additional multiple teeth extractions and implants. GI Surgical History: Reports: Colonoscopy, EGD, Other (See Below) Other GI Surgeries/Procedures: Last colonoscopy on 11/18/14 with previous colonoscopy in 2004. EGD in 2009. Female Surgical History: Reports: Tubal Ligation, Other (See Below) Other Female Surgeries/Procedures: Tubal ligation at age 46. Endometrial biopsy at about age 41. Musculoskeletal Surgical History: Reports: Shoulder Surgery Other Musculoskeletal Surgeries/Procedures:: Right foot bunionectomy with concomitant fourth and fifth hammertoe revision on 09/10/02. Left rotator cuff repair in 2005. - Past Imaging History Past Imaging History: Reports: Cardiac Echo (07/20/14 with ejection fraction of 6065 percent.), CAT Scan (CT of the brain on 05/17/15 and 03/29/14. CT of the chest with IV contrast on 04/19/16 and 11/12/14. Previous serial CTs of the chest on 06/30/13, 06/25/08, etc.), DEXA Scan (10/11/14), Mammogram (Last on 12/24/18.), MRA (MRA/MRI of the head and neck on 06/06/15.), MRI (Right shoulder on 12/17/16.), Stress Testing (Negative Cardiolite stress test on 05/26/15 with ejection fraction of 90%. Previous Cardiolite stress test on 03/11/08 with ejection fraction of 61%.) Social & Family History - Family History Family Medical History: Unobtainable - Tobacco Use Tobacco Use Status *Q: Never Tobacco User - Caffeine Use Caffeine Use: Reports: Coffee - Recreational Drug Use Recreational Drug Use: No - Living Situation & Occupation Living situation: Reports: ([birth year], 5 children), with Family Occupation: Retired (From the [employer]) ED ROS GENERAL - Review of Systems Review Of Systems: Comprehensive ROS is negative, except as noted in HPI. ED EXAM, GENERAL - Physical Exam Exam: See Below Exam Limited By: No Limitations General Appearance: Alert, WD/WN, No Apparent Distress Eye Exam: Bilateral Eye: EOMI, PERRL Throat/Mouth: Normal Inspection, Normal Lips, Normal Teeth, Normal Gums, Normal Oropharynx, Normal Voice, No Airway Compromise Head: Atraumatic, Normocephalic Neck: Normal Inspection, Supple, Non-Tender, Full Range of Motion Respiratory/Chest: No Respiratory Distress, Lungs Clear, Normal Breath Sounds, No Accessory Muscle Use, Chest Non-Tender Cardiovascular: Normal Peripheral Pulses, Regular Rate, Rhythm, No Edema, No JVD Peripheral Pulses: 4+: Radial (R) GI/Abdominal: Non-Tender, No Distention (Female) Exam: Deferred Rectal (Female) Exam: Deferred Extremities: Normal Inspection, Normal Range of Motion, Non-Tender, No Pedal Edema Neurological: Alert, Oriented, CN II-XII Intact, Normal Cognition, Normal Gait, No Motor/Sensory Deficits Psychiatric: Normal Affect, Normal Mood Skin Exam: Warm, Dry, Intact, Normal Color, No Rash Lymphatic: No Adenopathy #1 Interpretation Rhythm: NSR [place]: Normal P-Wave: Present QRS: Normal ST-T: Normal QT: Normal Comparison: No Change Course - Vital Signs Last Recorded V/S: Last Vital Signs Temp 36.7 C 11/24/20 16:54 Pulse 84 11/24/20 16:54 Resp 20 11/24/20 16:54 BP 205/88 H 11/24/20 16:54 Pulse Ox 97 11/24/20 16:54 - Orders/Labs/Meds Orders: Active Orders 24 hr Category Date Time Status EKG 12 Lead [EK] Stat Ther 11/24/20 16:39 Ordered Labs: Laboratory Tests 11/24/20 11/24/20 Range/Units 16:48 16:48 WBC 9.3 (4.0-10.2) K/uL RBC 4.39 (3.77-5.09) M/uL Hgb 12.8 (11.7-15.5) g/dL Hct 38.2 (34.0-46.0) % MCV 87.0 (84.0-98.0) fL MCH 29.2 (28.2-33.3) pg MCHC 33.5 (31.7-36.0) g/dL RDW 14.9 H (11.2-14.1) % Plt Count 309 (150-350) K/uL Neut % (Auto) 70.3 (45.0-80.0) % Lymph % (Auto) 20.4 (10.0-50.0) % [place] % (Auto) 7.2 (2.0-14.0) % Eos % (Auto) 1.8 (0.0-5.0) % Baso % (Auto) 0.3 (0.0-2.0) % Neut # (Auto) 6.51 (1.40-7.00) K/uL Lymph # (Auto) 1.89 (0.50-3.50) K/uL [place] # (Auto) 0.67 (0.00-1.00) K/uL Eos # (Auto) 0.17 (0.00-0.50) K/uL Baso # (Auto) 0.03 (0.00-0.20) K/uL Sodium 132 L (136-145) mmol/L Potassium 3.2 L (3.5-5.1) mmol/L Chloride 96 L (98-107) mmol/L Carbon Dioxide 29.4 (21.0-32.0) mmol/L Anion Gap 9.8 (7-15) meq/L BUN 8 (7-18) mg/dL Creatinine 0.67 (0.51-1.17) mg/dL Est Cr Clr Drug Dosing TNP Estimated GFR (MDRD) > 60 mL/min Glucose 104 H (70-99) mg/dL Calcium 9.1 (8.5-10.1) mg/dL Phosphorus 4.3 (2.6-4.7) mg/dL Magnesium 2.0 (1.8-2.4) mg/dL Total Bilirubin 0.4 (0.2-1.0) mg/dL AST 15 (15-37) U/L ALT 25 (12-78) U/L Alkaline Phosphatase 87 (46-116) IU/L Troponin I High Sens 7 (<=51) ng/L Total Protein 7.0 (6.4-8.2) g/dL Albumin 3.7 (3.4-5.0) g/dL TSH, Ultra Sensitive 2.896 (0.358-3.740) mIU/mL Meds: Medications Discontinued Medications Generic Name Dose Route Start Last Admin Trade Name Freq PRN Reason Stop Dose Admin Clonidine HCl 0.2 mg 11/24/20 16:40 11/24/20 16:45 Clonidine 0.1 Mg Tab PO 11/24/20 16:41 0.2 mg ONETIME ONE Administration Departure - Departure Time of Disposition: 17:20 Disposition: Home, Self-Care 01 Clinical Impression: Hypertension Qualifiers: Hypertension type: essential hypertension Instructions: Hypertension, Adult Referrals: Margarita Isaac PA [Primary Care Provider] - Forms: ED Department Discharge Additional Instructions: Follow-up with Margarita Isaac tomorrow. Increase clonidine to 0.2mg 3 times per day. Return to ER if you notice any chest pain, shortness of breath, problems with speaking, walking, etc. You are free to call the ER at any time if you have questions. Sepsis Event Note (ED) - Evaluation Sepsis Screening Result: No Definite Risk - Problem List Review Problem List Initiated/Reviewed/Updated: Yes - My Orders Last 24 Hours: My Active Orders 11/24/20 16:39 EKG 12 Lead [EK] Stat - Assessment/Plan Last 24 Hours: My Active Orders 11/24/20 16:39 EKG 12 Lead [EK] Stat Plan: Follow-up with Margarita Isaac tomorrow. Increase clonidine to 0.2mg 3 times per day. Return to ER if you notice any chest pain, shortness of breath, problems with speaking, walking, etc. You are free to call the ER at any time if you have questions.
== END 2020-11-24 17:45 | disposition home or self-care (01) ==
LOC: LL.ED 16:29
DX: I11.0 Hypertensive heart disease with heart failure (principal); I50.9 Heart failure, unspecified; E78.00 Pure hypercholesterolemia, unspecified; J44.9 Chronic obstructive pulmonary disease, unspecified; Z79.82 Long term (current) use of aspirin; Z88.0 Allergy status to penicillin; Z79.899 Other long term (current) drug therapy
CPT/HCPCS: 36415; 80053; 83735; 84100; 84443; 84484; 85025; 93005; 99283-25; A9270-GY

== ENCOUNTER 2022-01-15 09:37 | Inpatient (IN) | payer MEDICARE, OTHER ==
[2022-01-15] MEDS ORDERED: Sodium Chloride 0.9% 1,000 ML IV ONE (10:02)
[2022-01-15] MEDS ORDERED: Ondansetron 4 MG/2 ML SDV ONE (10:08)
[2022-01-15 10:23] LABS: CHLORIDE,CL 87 mmol/L (98-107); SODIUM,NA 129 mmol/L (136-145)
[2022-01-15] MEDS ORDERED: Labetalol 20 MG/4 ML Syringe IVPUSH ONE ×2 (10:25→10:38)
[2022-01-15] MEDS ORDERED: Ondansetron 4 MG/2 ML SDV IVPUSH ONE (10:32)
[2022-01-15 10:33] LABS: ANION GAP 14.7 meq/L (7-15); ESTIMATED GFR 63 mL/min (>=60)
[2022-01-15] MEDS ORDERED: Potassium Bicarbonate/Cit Ac 20 MEQ Effervescent Tab PO ONE ×2 (11:37→21:00)
[2022-01-15] MEDS ORDERED: Magnesium Sulfate/Water 2 GM in Premix Bag 1 BAG IV ONE (11:38)
[2022-01-15 11:41] LABS: CORONAVIRUS COVID-19 NAA NEGATIVE (NEGATIVE); RESPIRATORY SYNCYTIAL VIR NAA NEGATIVE (NEGATIVE)
[2022-01-15] MEDS ORDERED: cloNIDine 0.1 MG Tab PO ONE (11:48)
[2022-01-15] MEDS: Labetalol 20 MG/4 ML Syringe ONE (12:58)
[2022-01-15] MEDS: Potassium Chloride Riders 10 MEQ in Premix Bag 1 BAG IV SCH ×4 (14:20→19:03)
[2022-01-15] MEDS ORDERED: Ondansetron 4 MG/2 ML SDV IVPUSH PRN (14:42)
[2022-01-15] MEDS ORDERED: Metoprolol Succinate 50 MG Tab.ER PO ONE (14:53)
[2022-01-15] MEDS ORDERED: Losartan 50 MG Tab PO ONE (14:54)
[2022-01-15] MEDS: Sodium Chloride 0.9% 1,000 ML IV SCH (15:12)
[2022-01-15] MEDS ORDERED: Potassium Bicarbonate/Cit Ac 20 MEQ Effervescent Tab ONE (15:53)
[2022-01-15 16:57] LABS: ANION GAP 14.8 meq/L (7-15); CHLORIDE,CL 93 mmol/L (98-107); ESTIMATED GFR 87 mL/min (>=60); SODIUM,NA 129 mmol/L (136-145)
[2022-01-15] MEDS ORDERED: Albuterol/Ipratropium 3.0-0.5 MG/3 ML Neb Soln INH PRN (17:14)
[2022-01-15] MEDS ORDERED: Psyllium Husk Powder Sugar Free 5.85 GM Packet PO PRN (17:14)
[2022-01-15] MEDS ORDERED: Isosorbide Mononitrate 60 MG Tab.ER PO ONE (17:20)
[2022-01-15] MEDS: cloNIDine 0.1 MG Tab PO SCH (18:06)
[2022-01-15] MEDS: Potassium Chloride 20 MEQ Tab.ER PO SCH (18:06)
[2022-01-15] MEDS: Potassium Chloride Riders 50 ML ONE ×2 (19:03→19:20)
[2022-01-15] MEDS: Enoxaparin 40 MG/0.4 ML Syringe SUBCUT SCH (19:20)
[2022-01-15] MEDS: Losartan 50 MG Tab PO SCH (19:26)
[2022-01-15] MEDS ORDERED: Simvastatin 20 MG Tab PO SCH (20:00)
[2022-01-15] MEDS ORDERED: Magnesium Sulfate/Water 50 ML ONE (20:27)
[2022-01-15] MEDS: atorvaSTATin 10 MG Tab PO SCH (20:35)
[2022-01-16] MEDS: Sodium Chloride 0.9% 1,000 ML IV SCH ×2 (05:35→19:45)
[2022-01-16] MEDS: Metoprolol Succinate 50 MG Tab.ER PO SCH ×2 (07:48→17:20)
[2022-01-16] MEDS: cloNIDine 0.1 MG Tab PO SCH ×3 (07:49→17:21)
[2022-01-16] MEDS: Magnesium Oxide 400 MG Tab PO SCH (07:49)
[2022-01-16] MEDS: Oxybutynin 5 MG Tab PO SCH (07:50)
[2022-01-16] MEDS: Hydrochlorothiazide 25 MG Tab PO SCH (07:50)
[2022-01-16] MEDS: Aspirin 81 MG Tab.EC PO SCH (07:50)
[2022-01-16] MEDS: Isosorbide Mononitrate 60 MG Tab.ER PO SCH (07:50)
[2022-01-16] MEDS: Losartan 50 MG Tab PO SCH ×2 (07:51→19:38)
[2022-01-16] MEDS: Potassium Chloride 20 MEQ Tab.ER PO SCH ×2 (07:51→17:21)
[2022-01-16 10:26] LABS: ANION GAP 13.3 meq/L (7-15)
[2022-01-16] MEDS: atorvaSTATin 10 MG Tab PO SCH (19:37)
[2022-01-16] MEDS: Isosorbide Mononitrate 30 MG Tab.ER PO SCH (19:37)
[2022-01-16] MEDS: Enoxaparin 40 MG/0.4 ML Syringe SUBCUT SCH (19:38)
[2022-01-17] MEDS: Acetaminophen 325 MG Tab PO PRN (03:13)
[2022-01-17] MEDS: Hydrochlorothiazide 25 MG Tab PO SCH (07:39)
[2022-01-17] MEDS: Aspirin 81 MG Tab.EC PO SCH (07:39)
[2022-01-17] MEDS: Isosorbide Mononitrate 60 MG Tab.ER PO SCH (07:40)
[2022-01-17] MEDS: cloNIDine 0.1 MG Tab PO SCH ×3 (07:40→17:12)
[2022-01-17] MEDS: Potassium Chloride 20 MEQ Tab.ER PO SCH ×2 (07:40→17:13)
[2022-01-17] MEDS: Losartan 50 MG Tab PO SCH ×2 (07:41→19:18)
[2022-01-17] MEDS: Magnesium Oxide 400 MG Tab PO SCH (07:41)
[2022-01-17] MEDS: Oxybutynin 5 MG Tab PO SCH (07:42)
[2022-01-17] MEDS: Metoprolol Succinate 50 MG Tab.ER PO SCH ×2 (07:42→17:13)
[2022-01-17 07:43] LABS: ANION GAP 9.2 meq/L (7-15)
[2022-01-17] MEDS: Labetalol 20 MG/4 ML Syringe ONE (11:28)
[2022-01-17] MEDS: Isosorbide Mononitrate 30 MG Tab.ER PO SCH (19:14)
[2022-01-17] MEDS: Enoxaparin 40 MG/0.4 ML Syringe SUBCUT SCH (19:18)
[2022-01-17] MEDS: atorvaSTATin 10 MG Tab PO SCH (19:18)
[2022-01-18] MEDS: Acetaminophen 325 MG Tab PO PRN (05:36)
[2022-01-18] MEDS: cloNIDine 0.1 MG Tab PO SCH (07:31)
[2022-01-18] MEDS: Metoprolol Succinate 50 MG Tab.ER PO SCH (07:38)
[2022-01-18] MEDS: Hydrochlorothiazide 25 MG Tab PO SCH (07:40)
[2022-01-18] MEDS: Losartan 50 MG Tab PO SCH (07:40)
[2022-01-18] MEDS: Aspirin 81 MG Tab.EC PO SCH (07:40)
[2022-01-18] MEDS: Potassium Chloride 20 MEQ Tab.ER PO SCH (07:41)
[2022-01-18] MEDS: Oxybutynin 5 MG Tab PO SCH (07:41)
[2022-01-18] MEDS: Isosorbide Mononitrate 60 MG Tab.ER PO SCH (07:42)
[2022-01-18] MEDS: Magnesium Oxide 400 MG Tab PO SCH (07:42)
[2022-01-18 07:45] VITALS: BP 140/70; PULSE 70
== END 2022-01-18 09:55 | disposition home or self-care (01) | DRG 641 ==
LOC: LL.ED 09:37 → LL.MS 14:05
PROVIDERS: ADMIT Emergency Medicine; ATTEND Emergency Medicine
DX: E87.1 Hypo-osmolality and hyponatremia (principal); D64.9 Anemia, unspecified; I10 Essential (primary) hypertension; I49.1 Atrial premature depolarization; R53.1 Weakness; I16.0 Hypertensive urgency; E87.6 Hypokalemia; W19.XXXA Unspecified fall, initial encounter; R11.2 Nausea with vomiting, unspecified; E86.0 Dehydration; E83.42 Hypomagnesemia; R79.89 Other specified abnormal findings of blood chemistry; Z88.0 Allergy status to penicillin; Z79.82 Long term (current) use of aspirin; Z79.899 Other long term (current) drug therapy; Z20.822 Contact with and (suspected) exposure to COVID-19; A08.4 Viral intestinal infection, unspecified
CPT/HCPCS: 0241U; 36415; 80048; 80053; 81001; 82550; 83605; 83735; 85025; 93005; 96361; 96365; 96375; 96376; 97110-GP; 97161-GP; 97165-GO; 97530-GP; 99285-25; A9270-GY; J1650; J2405; J3475; J3480; J3490; J7030

== ENCOUNTER 2022-06-24 11:23 | Inpatient (IN) | payer MEDICARE ==
[2022-06-24] MEDS ORDERED: HYDROmorphone 0.5 MG/0.5 ML Syringe IVPUSH PRN (12:06)
[2022-06-24] MEDS: Ondansetron 4 MG/2 ML SDV IVPUSH PRN (12:11)
[2022-06-24] MEDS: Sodium Chloride 0.9% 10 ML Syringe FLUSH PRN (12:11)
[2022-06-24 12:46] LABS: CHLORIDE,CL 94 mmol/L (98-107); SODIUM,NA 132 mmol/L (136-145)
[2022-06-24 12:49] LABS: ANION GAP 14.2 meq/L (7-15); ESTIMATED GFR 59 mL/min (>=60)
[2022-06-24] MEDS ORDERED: Lidocaine 2% with EPINEPHrine 1:100,000 20 ML MDV ONE (12:55)
[2022-06-24] MEDS ORDERED: Ondansetron 4 MG Tab.DIS PO PRN ×2 (14:14)
[2022-06-24] MEDS ORDERED: Albuterol/Ipratropium 3.0-0.5 MG/3 ML Neb Soln INH PRN (14:14)
[2022-06-24] MEDS ORDERED: diphenhydrAMINE 25 MG Cap PO PRN (14:18)
[2022-06-24] MEDS ORDERED: Psyllium Husk Powder Sugar Free 5.85 GM Packet PO PRN (14:49)
[2022-06-24] MEDS: Acetaminophen 500 MG Tab PO PRN (16:12)
[2022-06-24] MEDS ORDERED: Bacitracin Oint 1 GM U/D Packet TOP ONE (16:20)
[2022-06-24] MEDS: Isosorbide Mononitrate 60 MG Tab.ER PO SCH (17:33)
[2022-06-24] MEDS: Metoprolol Succinate 50 MG Tab.ER PO SCH (17:33)
[2022-06-24] MEDS: cloNIDine 0.1 MG Tab PO SCH (17:34)
[2022-06-24] MEDS: Potassium Chloride 20 MEQ Tab.ER PO SCH (17:34)
[2022-06-24] MEDS: Sodium Chloride 1 GM Tab PO SCH (17:34)
[2022-06-24] MEDS: Losartan 50 MG Tab PO SCH (17:34)
[2022-06-24] MEDS ORDERED: atorvaSTATin 10 MG Tab PO SCH (20:00)
[2022-06-25] MEDS: Sodium Chloride 0.9% 10 ML Syringe FLUSH PRN ×5 (01:28→19:39)
[2022-06-25] MEDS: Ondansetron 4 MG/2 ML SDV IVPUSH PRN ×3 (01:28→18:31)
[2022-06-25] MEDS ORDERED: Pantoprazole 80 MG in Sodium Chloride 0.9% 100 ML IV ONE (03:57)
[2022-06-25] MEDS: Acetaminophen 500 MG Tab PO PRN ×2 (07:56→14:21)
[2022-06-25] MEDS: Oxybutynin 5 MG Tab PO SCH ×2 (07:59→08:30)
[2022-06-25] MEDS: Isosorbide Mononitrate 60 MG Tab.ER PO SCH ×2 (07:59→08:30)
[2022-06-25] MEDS: Sodium Chloride 1 GM Tab PO SCH ×2 (08:00→08:30)
[2022-06-25] MEDS ORDERED: Hydrochlorothiazide 25 MG Tab PO SCH (08:00)
[2022-06-25] MEDS: cloNIDine 0.1 MG Tab PO SCH ×3 (08:02→13:23)
[2022-06-25] MEDS: Losartan 50 MG Tab PO SCH (08:03)
[2022-06-25] MEDS: Potassium Chloride 20 MEQ Tab.ER PO SCH ×2 (08:03→08:30)
[2022-06-25] MEDS: Metoprolol Succinate 50 MG Tab.ER PO SCH ×2 (08:04→08:30)
[2022-06-25] MEDS ORDERED: Ondansetron 4 MG/2 ML SDV IVPUSH PRN (09:22)
[2022-06-25] MEDS ORDERED: Pantoprazole 40 MG Vial IVPUSH SCH (09:30)
[2022-06-25] MEDS ORDERED: Ketorolac 15 MG/ML SDV IM ONE (13:20)
[2022-06-25] MEDS ORDERED: Metoprolol Succinate 50 MG Tab.ER PO SCH (18:00)
[2022-06-25] MEDS: Pantoprazole 40 MG Vial IVPUSH SCH (19:39)
[2022-06-25] MEDS ORDERED: Labetalol 20 MG/4 ML Syringe IVPUSH ONE (22:38)
[2022-06-25] MEDS ORDERED: Prochlorperazine 10 MG/2 ML SDV IVPUSH ONE (22:39)
[2022-06-25] MEDS ORDERED: Labetalol 20 MG/4 ML Syringe IVPUSH PRN (22:40)
[2022-06-26] MEDS: cloNIDine 0.1 MG Tab PO SCH (00:14)
[2022-06-26] MEDS: Potassium Chloride 20 MEQ Tab.ER PO SCH ×3 (00:15→17:16)
[2022-06-26] MEDS: Sulfamethoxazole/Trimethoprim 800-160 MG Tab PO SCH ×3 (00:23→17:16)
[2022-06-26] MEDS ORDERED: Prochlorperazine 10 MG/2 ML SDV IVPUSH PRN (06:55)
[2022-06-26] MEDS ORDERED: Acetaminophen 650 MG Supp RECTAL PRN (06:57)
[2022-06-26] MEDS ORDERED: Isosorbide Mononitrate 30 MG Tab.ER PO SCH (08:00)
[2022-06-26] MEDS: Chlorthalidone 25 MG Tab PO SCH (09:08)
[2022-06-26] MEDS: Losartan 50 MG Tab PO SCH (09:09)
[2022-06-26] MEDS: Metoprolol Succinate 50 MG Tab.ER PO SCH (09:10)
[2022-06-26] MEDS: Sodium Chloride 0.9% 10 ML Syringe FLUSH PRN ×5 (09:11→21:13)
[2022-06-26] MEDS: Pantoprazole 40 MG Vial IVPUSH SCH ×2 (09:11→20:02)
[2022-06-26] MEDS ORDERED: cloNIDine 0.1 MG Tab PO ONE ×2 (15:19→16:14)
[2022-06-26] MEDS ORDERED: Sodium Chloride 0.9% 1,000 ML IV ONE (17:35)
[2022-06-26] MEDS ORDERED: LORazepam 2 MG/ML SDV IVPUSH ONE (21:06)
[2022-06-26] MEDS ORDERED: Melatonin 3 MG Tab PO PRN (22:03)
[2022-06-27 07:57] LABS: ANION GAP 12.9 meq/L (7-15)
[2022-06-27] MEDS: Losartan 50 MG Tab PO SCH (09:53)
[2022-06-27] MEDS: Potassium Chloride 20 MEQ Tab.ER PO SCH ×2 (09:53→17:07)
[2022-06-27] MEDS: Metoprolol Succinate 50 MG Tab.ER PO SCH (09:53)
[2022-06-27] MEDS: Pantoprazole 40 MG Vial IVPUSH SCH ×2 (09:53→20:49)
[2022-06-27] MEDS: Sulfamethoxazole/Trimethoprim 800-160 MG Tab PO SCH ×2 (09:53→17:07)
[2022-06-27] MEDS: Chlorthalidone 25 MG Tab PO SCH (09:54)
[2022-06-27] MEDS ORDERED: Magnesium Chloride 64 MG Tab.ER PO SCH (12:00)
[2022-06-27] MEDS: Magnesium Chloride 64 MG Tab.ER PO SCH (20:48)
[2022-06-27] MEDS: Acetaminophen 500 MG Tab PO PRN (20:48)
[2022-06-27] MEDS: Sodium Chloride 0.9% 10 ML Syringe FLUSH PRN (20:48)
[2022-06-28 07:37] LABS: ANION GAP 10.7 meq/L (7-15)
[2022-06-28] MEDS: Pantoprazole 40 MG Vial IVPUSH SCH (08:19)
[2022-06-28] MEDS: Sodium Chloride 0.9% 10 ML Syringe FLUSH PRN ×2 (08:19→20:01)
[2022-06-28] MEDS: Sulfamethoxazole/Trimethoprim 800-160 MG Tab PO SCH ×2 (08:20→18:06)
[2022-06-28] MEDS: Potassium Chloride 20 MEQ Tab.ER PO SCH ×2 (08:20→18:06)
[2022-06-28] MEDS: Chlorthalidone 25 MG Tab PO SCH (08:20)
[2022-06-28] MEDS: Losartan 50 MG Tab PO SCH (08:21)
[2022-06-28] MEDS: Acetaminophen 500 MG Tab PO PRN (15:16)
[2022-06-28] MEDS: Magnesium Chloride 64 MG Tab.ER PO SCH (19:53)
[2022-06-28] MEDS: Ondansetron 4 MG/2 ML SDV IVPUSH PRN (20:01)
[2022-06-29 07:46] LABS: ANION GAP 12.1 meq/L (7-15)
[2022-06-29] MEDS ORDERED: Chlorthalidone 25 MG Tab PO SCH ×2 (08:00)
[2022-06-29] MEDS: Losartan 50 MG Tab PO SCH (08:49)
[2022-06-29] MEDS: Potassium Chloride 20 MEQ Tab.ER PO SCH ×2 (08:50→17:18)
[2022-06-29] MEDS ORDERED: Sennosides 8.6 MG Tab PO SCH ×2 (09:00→09:45)
[2022-06-29] MEDS ORDERED: Psyllium Husk Powder Sugar Free 5.85 GM Packet PO SCH ×2 (09:00→09:45)
[2022-06-29 19:32] VITALS: BP 143/74; PULSE 88
[2022-06-29] MEDS: Magnesium Chloride 64 MG Tab.ER PO SCH (19:35)
== END 2022-06-29 21:00 | disposition swing bed (61) | DRG 89 ==
LOC: LL.ED 11:23 → LL.MS 13:50 → OBSVTOIN 06-25 17:29 → LL.MS 06-25 22:09
PROVIDERS: ADMIT Emergency Medicine; ATTEND Emergency Medicine
DX: S06.0X1A Concussion with loss of consciousness of 30 minutes or less, initial encounter (principal); D62 Acute posthemorrhagic anemia; E87.1 Hypo-osmolality and hyponatremia; K92.0 Hematemesis; N39.0 Urinary tract infection, site not specified; S01.01XA Laceration without foreign body of scalp, initial encounter; R29.6 Repeated falls; S00.83XA Contusion of other part of head, initial encounter; I16.0 Hypertensive urgency; H40.9 Unspecified glaucoma; J44.9 Chronic obstructive pulmonary disease, unspecified; K59.09 Other constipation; Z66 Do not resuscitate; K21.9 Gastro-esophageal reflux disease without esophagitis; R00.1 Bradycardia, unspecified; E78.2 Mixed hyperlipidemia; S62.304A Unspecified fracture of fourth metacarpal bone, right hand, initial encounter for closed fracture; B96.20 Unspecified Escherichia coli [E. coli] as the cause of diseases classified elsewhere; E87.70 Fluid overload, unspecified; E83.42 Hypomagnesemia; N39.46 Mixed incontinence; I11.0 Hypertensive heart disease with heart failure; M81.0 Age-related osteoporosis without current pathological fracture; I50.9 Heart failure, unspecified; Z79.899 Other long term (current) drug therapy; Z79.1 Long term (current) use of non-steroidal anti-inflammatories (NSAID); Z79.82 Long term (current) use of aspirin; Z79.52 Long term (current) use of systemic steroids; Z88.0 Allergy status to penicillin; Z98.42 Cataract extraction status, left eye; Z98.41 Cataract extraction status, right eye; Z97.3 Presence of spectacles and contact lenses; Z87.19 Personal history of other diseases of the digestive system; Z87.81 Personal history of (healed) traumatic fracture; Z87.440 Personal history of urinary (tract) infections; Z98.890 Other specified postprocedural states; Z98.51 Tubal ligation status; T50.905A Adverse effect of unspecified drugs, medicaments and biological substances, initial encounter; W18.30XA Fall on same level, unspecified, initial encounter; Y92.22 Religious institution as the place of occurrence of the external cause
CPT/HCPCS: 12001; 36415; 36416; 70450; 72125; 73130-RT; 80048; 80053; 81001; 82271; 83735; 85018; 85025; 93005; 93010; 96365; 96374; 96375; 96376; 97162-GP; 97165-GO; 99285-25; A9270-GY; C9113; G0378; J0780; J1170; J2060; J2405; J3490; J7030

== ENCOUNTER 2022-06-29 12:13 | Inpatient (IN) | payer MEDICARE ==
[2022-06-29] MEDS ORDERED: Melatonin 3 MG Tab PO PRN (16:10)
[2022-06-29] MEDS ORDERED: Acetaminophen 650 MG Supp RECTAL PRN (16:10)
[2022-06-29] MEDS ORDERED: Ondansetron 4 MG Tab.DIS PO PRN (16:10)
[2022-06-29] MEDS ORDERED: Albuterol/Ipratropium 3.0-0.5 MG/3 ML Neb Soln INH PRN (16:10)
[2022-06-29] MEDS ORDERED: Sodium Chloride 0.9% 10 ML Syringe FLUSH PRN ×2 (16:10)
[2022-06-29] MEDS: Potassium Chloride 20 MEQ Tab.ER PO SCH (22:25)
[2022-06-29] MEDS: Magnesium Chloride 64 MG Tab.ER PO SCH (22:26)
[2022-06-30] MEDS: Potassium Chloride 20 MEQ Tab.ER PO SCH ×2 (08:02→17:22)
[2022-06-30] MEDS: Losartan 50 MG Tab PO SCH (08:02)
[2022-06-30] MEDS: Psyllium Husk Powder Sugar Free 5.85 GM Packet PO SCH (08:03)
[2022-06-30] MEDS: Chlorthalidone 25 MG Tab PO SCH (08:03)
[2022-06-30] MEDS: Sennosides 8.6 MG Tab PO SCH (08:03)
[2022-06-30] MEDS: Magnesium Chloride 64 MG Tab.ER PO SCH (19:11)
[2022-07-01] MEDS: Potassium Chloride 20 MEQ Tab.ER PO SCH ×2 (08:14→17:49)
[2022-07-01] MEDS: Sennosides 8.6 MG Tab PO SCH (08:14)
[2022-07-01] MEDS: Psyllium Husk Powder Sugar Free 5.85 GM Packet PO SCH (08:14)
[2022-07-01] MEDS: Losartan 50 MG Tab PO SCH (08:23)
[2022-07-01] MEDS: Chlorthalidone 25 MG Tab PO SCH (08:24)
[2022-07-01] MEDS: Magnesium Chloride 64 MG Tab.ER PO SCH (19:17)
[2022-07-02] MEDS: Chlorthalidone 25 MG Tab PO SCH (08:06)
[2022-07-02] MEDS: Sennosides 8.6 MG Tab PO SCH (08:07)
[2022-07-02] MEDS: Psyllium Husk Powder Sugar Free 5.85 GM Packet PO SCH (08:07)
[2022-07-02] MEDS: Potassium Chloride 20 MEQ Tab.ER PO SCH ×2 (08:07→17:51)
[2022-07-02] MEDS: Losartan 50 MG Tab PO SCH (08:07)
[2022-07-02 10:25] LABS: BASOPHILS ABSOLUTE AUTO 0.05 K/uL (0.00-0.20); BASOPHILS PERCENT AUTO 0.5 % (0.0-2.0); EOSINOPHILS ABSOLUTE AUTO 0.08 K/uL (0.00-0.50); EOSINOPHILS PERCENT AUTO 0.7 % (0.0-5.0); HEMATOCRIT 37.2 % (34.0-46.0); HEMOGLOBIN 12.5 g/dL (11.7-15.5); LYMPHOCYTES ABSOLUTE AUTO 1.79 K/uL (0.50-3.50); LYMPHOCYTES PERCENT AUTO 16.6 % (10.0-50.0); MEAN CORPUSCULAR HEMOGLOBIN 29.6 pg (28.2-33.3); MEAN CORPUSCULAR HGB CONC 33.6 g/dL (31.7-36.0); MEAN CORPUSCULAR VOLUME 87.9 fL (84.0-98.0); MONOCYTES ABSOLUTE AUTO 0.81 K/uL (0.00-1.00); MONOCYTES PERCENT AUTO 7.5 % (2.0-14.0); NEUTROPHILS ABSOLUTE AUTO 8.08 K/uL (1.40-7.00); NEUTROPHILS PERCENT AUTO 74.7 % (45.0-80.0); PLATELET COUNT,PLT 458 K/uL (150-350); RED BLOOD CELL COUNT 4.23 M/uL (3.77-5.09); RED CELL DISTRIBUTION WIDTH 13.9 % (11.2-14.1); WHITE BLOOD CELL COUNT,WBC 10.8 K/uL (4.0-10.2)
[2022-07-02 10:43] LABS: CALCIUM 9.4 mg/dL (8.5-10.1); CARBON DIOXIDE,CO2 26.1 mmol/L (21.0-32.0); CREATININE 0.98 mg/dL (0.51-1.17); EST CRCL DRUG DOSING (CG) 30.15 mL/min; POTASSIUM,K 3.9 mmol/L (3.5-5.1)
[2022-07-02 10:51] LABS: ANION GAP 13.8 meq/L (7-15)
[2022-07-02] MEDS: Magnesium Chloride 64 MG Tab.ER PO SCH (19:45)
[2022-07-03 07:41] LABS: APPEARANCE,URINE SLIGHTLY CLOUDY; BILIRUBIN,URINE NEGATIVE (NEGATIVE); COLOR,URINE DARK YELLOW; GLUCOSE,URINE NEGATIVE (NEGATIVE); KETONES,URINE NEGATIVE (NEGATIVE); LEUKOCYTE ESTERASE,URINE TRACE (NEGATIVE); NITRITE,URINE NEGATIVE (NEGATIVE); OCCULT BLOOD,URINE NEGATIVE (NEGATIVE); PH,URINE 6.5 (5.0-9.0); PROTEIN,URINE NEGATIVE (NEGATIVE); UROBILINOGEN,URINE 0.2 E.U./dL (0.2-1.0)
[2022-07-03 07:43] LABS: EPITHELIAL CELLS,URINE NOT SEEN /LPF; RBC,URINE 0-5 /HPF
[2022-07-03] MEDS: Sennosides 8.6 MG Tab PO SCH (07:43)
[2022-07-03 07:44] LABS: BACTERIA,URINE RARE /HPF (NONE TO FEW)
[2022-07-03] MEDS: Potassium Chloride 20 MEQ Tab.ER PO SCH ×2 (07:44→17:05)
[2022-07-03] MEDS: Psyllium Husk Powder Sugar Free 5.85 GM Packet PO SCH (07:46)
[2022-07-03] MEDS ORDERED: Losartan 25 MG Tab PO SCH (08:00)
[2022-07-03] MEDS: Acetaminophen 500 MG Tab PO PRN (09:23)
[2022-07-03] MEDS: Magnesium Chloride 64 MG Tab.ER PO SCH (19:07)
[2022-07-04] MEDS: Psyllium Husk Powder Sugar Free 5.85 GM Packet PO SCH (08:16)
[2022-07-04] MEDS: Sennosides 8.6 MG Tab PO SCH (08:17)
[2022-07-04] MEDS: Chlorthalidone 25 MG Tab PO SCH (08:17)
[2022-07-04] MEDS: Potassium Chloride 20 MEQ Tab.ER PO SCH ×2 (08:17→17:30)
[2022-07-04] MEDS: Magnesium Chloride 64 MG Tab.ER PO SCH (20:48)
[2022-07-05] MEDS: Psyllium Husk Powder Sugar Free 5.85 GM Packet PO SCH (07:29)
[2022-07-05] MEDS: Sennosides 8.6 MG Tab PO SCH (07:29)
[2022-07-05] MEDS: Potassium Chloride 20 MEQ Tab.ER PO SCH ×2 (07:29→17:13)
[2022-07-05] MEDS: Chlorthalidone 25 MG Tab PO SCH (07:29)
[2022-07-05 10:07] LABS: BASOPHILS ABSOLUTE AUTO 0.05 K/uL (0.00-0.20); BASOPHILS PERCENT AUTO 0.5 % (0.0-2.0); EOSINOPHILS ABSOLUTE AUTO 0.09 K/uL (0.00-0.50); EOSINOPHILS PERCENT AUTO 0.9 % (0.0-5.0); HEMATOCRIT 34.3 % (34.0-46.0); HEMOGLOBIN 11.6 g/dL (11.7-15.5); LYMPHOCYTES ABSOLUTE AUTO 1.82 K/uL (0.50-3.50); LYMPHOCYTES PERCENT AUTO 17.9 % (10.0-50.0); MEAN CORPUSCULAR HEMOGLOBIN 29.7 pg (28.2-33.3); MEAN CORPUSCULAR HGB CONC 33.8 g/dL (31.7-36.0); MEAN CORPUSCULAR VOLUME 87.7 fL (84.0-98.0); MONOCYTES ABSOLUTE AUTO 1.17 K/uL (0.00-1.00); MONOCYTES PERCENT AUTO 11.5 % (2.0-14.0); NEUTROPHILS ABSOLUTE AUTO 7.06 K/uL (1.40-7.00); NEUTROPHILS PERCENT AUTO 69.2 % (45.0-80.0); PLATELET COUNT,PLT 439 K/uL (150-350); RED BLOOD CELL COUNT 3.91 M/uL (3.77-5.09); RED CELL DISTRIBUTION WIDTH 14.1 % (11.2-14.1); WHITE BLOOD CELL COUNT,WBC 10.2 K/uL (4.0-10.2)
[2022-07-05 10:26] LABS: ALBUMIN 3.1 g/dL (3.4-5.0); BILIRUBIN TOTAL 0.5 mg/dL (0.2-1.0); CALCIUM 8.6 mg/dL (8.5-10.1); CARBON DIOXIDE,CO2 26.6 mmol/L (21.0-32.0); CREATININE 0.64 mg/dL (0.51-1.17); EST CRCL DRUG DOSING (CG) 46.16 mL/min; POTASSIUM,K 3.9 mmol/L (3.5-5.1); PROTEIN TOTAL,TP 6.8 g/dL (6.4-8.2)
[2022-07-05 10:34] LABS: ANION GAP 13.3 meq/L (7-15)
[2022-07-05] MEDS: Magnesium Chloride 64 MG Tab.ER PO SCH (19:27)
[2022-07-06] MEDS: Chlorthalidone 25 MG Tab PO SCH (08:06)
[2022-07-06] MEDS: Sennosides 8.6 MG Tab PO SCH (08:06)
[2022-07-06] MEDS: Potassium Chloride 20 MEQ Tab.ER PO SCH ×2 (08:06→17:27)
[2022-07-06] MEDS: Psyllium Husk Powder Sugar Free 5.85 GM Packet PO SCH (08:06)
[2022-07-06] MEDS: Acetaminophen 500 MG Tab PO PRN (17:27)
[2022-07-06] MEDS: Magnesium Chloride 64 MG Tab.ER PO SCH (19:20)
[2022-07-07] MEDS: Sennosides 8.6 MG Tab PO SCH (08:18)
[2022-07-07] MEDS: Potassium Chloride 20 MEQ Tab.ER PO SCH ×2 (08:18→17:32)
[2022-07-07] MEDS: Psyllium Husk Powder Sugar Free 5.85 GM Packet PO SCH (08:18)
[2022-07-07] MEDS: Magnesium Chloride 64 MG Tab.ER PO SCH (19:14)
[2022-07-08] MEDS: Acetaminophen 500 MG Tab PO PRN (01:43)
[2022-07-08] MEDS: Psyllium Husk Powder Sugar Free 5.85 GM Packet PO SCH (07:53)
[2022-07-08] MEDS: Sennosides 8.6 MG Tab PO SCH (07:53)
[2022-07-08] MEDS: Potassium Chloride 20 MEQ Tab.ER PO SCH ×2 (07:53→17:11)
[2022-07-08] MEDS: Magnesium Chloride 64 MG Tab.ER PO SCH (19:13)
[2022-07-09] MEDS: Psyllium Husk Powder Sugar Free 5.85 GM Packet PO SCH (07:34)
[2022-07-09] MEDS: Potassium Chloride 20 MEQ Tab.ER PO SCH ×2 (07:35→17:21)
[2022-07-09] MEDS: Sennosides 8.6 MG Tab PO SCH (07:35)
[2022-07-09] MEDS: Magnesium Chloride 64 MG Tab.ER PO SCH (19:59)
[2022-07-10] MEDS: Psyllium Husk Powder Sugar Free 5.85 GM Packet PO SCH (07:58)
[2022-07-10] MEDS: Sennosides 8.6 MG Tab PO SCH (07:58)
[2022-07-10] MEDS: Chlorthalidone 25 MG Tab PO SCH (07:58)
[2022-07-10] MEDS: Potassium Chloride 20 MEQ Tab.ER PO SCH ×2 (07:58→18:23)
[2022-07-10] MEDS: Acetaminophen 500 MG Tab PO PRN (12:56)
[2022-07-10] MEDS: Magnesium Chloride 64 MG Tab.ER PO SCH (19:35)
[2022-07-11] MEDS: Sennosides 8.6 MG Tab PO SCH (08:55)
[2022-07-11] MEDS: Potassium Chloride 20 MEQ Tab.ER PO SCH ×2 (08:55→17:40)
[2022-07-11] MEDS: Psyllium Husk Powder Sugar Free 5.85 GM Packet PO SCH (08:56)
[2022-07-11] MEDS: Acetaminophen 500 MG Tab PO PRN (09:00)
[2022-07-11] MEDS: Magnesium Chloride 64 MG Tab.ER PO SCH (19:12)
[2022-07-12] MEDS: Potassium Chloride 20 MEQ Tab.ER PO SCH (08:44)
[2022-07-12] MEDS: Sennosides 8.6 MG Tab PO SCH (08:44)
[2022-07-12] MEDS: Psyllium Husk Powder Sugar Free 5.85 GM Packet PO SCH (08:44)
[2022-07-12] MEDS: Acetaminophen 500 MG Tab PO PRN (09:08)
[2022-07-12 12:45] VITALS: BP 149/100; PULSE 97
== END 2022-07-12 14:20 | disposition home or self-care (01) | DRG 948 ==
LOC: LL.MS 22:06 → LL.SWG 07-11 23:00
PROVIDERS: ADMIT Emergency Medicine; ATTEND Emergency Medicine
DX: R53.1 Weakness (principal); S06.9XAA Unspecified intracranial injury with loss of consciousness status unknown, initial encounter; E87.1 Hypo-osmolality and hyponatremia; S01.01XA Laceration without foreign body of scalp, initial encounter; W19.XXXA Unspecified fall, initial encounter
CPT/HCPCS: 36415; 80048; 80053; 81001; 81003; 85025; 87086; 93005; 93010; 97110-GO; 97110-GP; 97129-GO; 97162-GP; 97165-GO; 97530-GO; 97530-GP; 97535-GO; 99307; 99315; A9270-GY

== ENCOUNTER 2022-07-19 19:28 | Emergency (ER) | payer MEDICARE ==
[2022-07-19] MEDS ORDERED: Sodium Chloride 0.9% 10 ML Syringe FLUSH PRN ×2 (19:46→20:26)
[2022-07-19] MEDS ORDERED: Ondansetron 4 MG/2 ML SDV IVPUSH PRN (19:47)
[2022-07-19] MEDS ORDERED: HYDROmorphone 0.5 MG/0.5 ML Syringe IVPUSH PRN (19:47)
[2022-07-19] MEDS ORDERED: Sodium Chloride 0.9% 500 ML IV ONE (19:49)
[2022-07-19 20:17] LABS: ALANINE AMINOTRANSFERASE,ALT 17 U/L (12-78); ALBUMIN 2.7 g/dL (3.4-5.0); ALKALINE PHOSPHATASE 73 IU/L (46-116); ANION GAP 10.7 meq/L (7-15); ASPARTATE AMNIOTRANSFERASE,AST 12 U/L (15-37); BASOPHILS ABSOLUTE AUTO 0.03 K/uL (0.00-0.20); BASOPHILS PERCENT AUTO 0.2 % (0.0-2.0); BILIRUBIN TOTAL 0.5 mg/dL (0.2-1.0); BLOOD UREA NITROGEN,BUN 17 mg/dL (7-18); CALCIUM 8.9 mg/dL (8.5-10.1); CARBON DIOXIDE,CO2 26.2 mmol/L (21.0-32.0); CHLORIDE,CL 97 mmol/L (98-107); CREATININE 0.55 mg/dL (0.51-1.17); EOSINOPHILS ABSOLUTE AUTO 0.04 K/uL (0.00-0.50); EOSINOPHILS PERCENT AUTO 0.3 % (0.0-5.0); ESTIMATED GFR 90 mL/min (>=60); GLUCOSE RANDOM 133 mg/dL (70-99); HEMATOCRIT 34.2 % (34.0-46.0); HEMOGLOBIN 11.4 g/dL (11.7-15.5); MEAN CORPUSCULAR HEMOGLOBIN 29.7 pg (28.2-33.3); MEAN CORPUSCULAR HGB CONC 33.3 g/dL (31.7-36.0); MEAN CORPUSCULAR VOLUME 89.1 fL (84.0-98.0); MONOCYTES ABSOLUTE AUTO 0.94 K/uL (0.00-1.00); MONOCYTES PERCENT AUTO 7.7 % (2.0-14.0); NEUTROPHILS ABSOLUTE AUTO 10.15 K/uL (1.40-7.00); NEUTROPHILS PERCENT AUTO 82.8 % (45.0-80.0); PLATELET COUNT,PLT 506 K/uL (150-350); POTASSIUM,K 3.9 mmol/L (3.5-5.1); PROTEIN TOTAL,TP 7.2 g/dL (6.4-8.2); RED BLOOD CELL COUNT 3.84 M/uL (3.77-5.09); SODIUM,NA 130 mmol/L (136-145); WHITE BLOOD CELL COUNT,WBC 12.3 K/uL (4.0-10.2)
[2022-07-19] MEDS ORDERED: Take Home: Cyclobenzaprine 10 MG Tab, 4 Tab Pack PO ONE (20:26)
[2022-07-19] MEDS ORDERED: Take Home: oxyCODONE HCl 5 MG Tab, 5 Tab Pack PO ONE (20:35)
[2022-07-19 20:51] VITALS: BP 126/80; PULSE 95
== END 2022-07-19 22:00 | disposition home or self-care (01) ==
LOC: LL.ED 19:28
DX: M62.830 Muscle spasm of back (principal); I11.0 Hypertensive heart disease with heart failure; I50.9 Heart failure, unspecified; J44.9 Chronic obstructive pulmonary disease, unspecified; Z88.0 Allergy status to penicillin
CPT/HCPCS: 36415; 80053; 85025; 94761; 96361; 96374; 96375; 99283-25; 99284; A9270-GY; J1170; J2405; J7030

== ENCOUNTER 2023-07-11 14:08 | Emergency (ER) | payer MEDICARE ==
[2023-07-11] MEDS: cloNIDine 0.1 MG Tab PO ONE (14:29)
[2023-07-11 14:52] LABS: BASOPHILS ABSOLUTE AUTO 0.03 K/uL (0.00-0.20); BASOPHILS PERCENT AUTO 0.4 % (0.0-2.0); EOSINOPHILS ABSOLUTE AUTO 0.18 K/uL (0.00-0.50); EOSINOPHILS PERCENT AUTO 2.7 % (0.0-5.0); HEMATOCRIT 39.7 % (34.0-46.0); HEMOGLOBIN 13.2 g/dL (11.7-15.5); LYMPHOCYTES ABSOLUTE AUTO 1.84 K/uL (0.50-3.50); LYMPHOCYTES PERCENT AUTO 27.3 % (10.0-50.0); MEAN CORPUSCULAR HEMOGLOBIN 30.1 pg (28.2-33.3); MEAN CORPUSCULAR HGB CONC 33.2 g/dL (31.7-36.0); MEAN CORPUSCULAR VOLUME 90.4 fL (84.0-98.0); MONOCYTES ABSOLUTE AUTO 0.54 K/uL (0.00-1.00); NEUTROPHILS ABSOLUTE AUTO 4.15 K/uL (1.40-7.00); NEUTROPHILS PERCENT AUTO 61.6 % (45.0-80.0); PLATELET COUNT,PLT 255 K/uL (150-350); RED BLOOD CELL COUNT 4.39 M/uL (3.77-5.09); RED CELL DISTRIBUTION WIDTH 13.8 % (11.2-14.1); WHITE BLOOD CELL COUNT,WBC 6.7 K/uL (4.0-10.2)
[2023-07-11 15:08] LABS: ALBUMIN 3.5 g/dL (3.4-5.0); ANION GAP 10.6 meq/L (7-15); BILIRUBIN TOTAL 0.3 mg/dL (0.2-1.0); CALCIUM 8.5 mg/dL (8.5-10.1); CARBON DIOXIDE,CO2 27.8 mmol/L (21.0-32.0); CREATININE 0.74 mg/dL (0.51-1.17); EST CRCL DRUG DOSING (CG) 39.2 mL/min; MAGNESIUM 2.1 mg/dL (1.8-2.4); POTASSIUM,K 4.4 mmol/L (3.5-5.1)
[2023-07-11 15:21] VITALS: PULSE 58
[2023-07-11 15:48] VITALS: BP 141/82
== END 2023-07-11 16:45 | disposition home or self-care (01) ==
LOC: LL.ED 14:08
DX: I11.0 Hypertensive heart disease with heart failure (principal); I50.9 Heart failure, unspecified; E78.00 Pure hypercholesterolemia, unspecified; K21.9 Gastro-esophageal reflux disease without esophagitis; J44.9 Chronic obstructive pulmonary disease, unspecified; Z88.0 Allergy status to penicillin; Z79.899 Other long term (current) drug therapy; Z79.51 Long term (current) use of inhaled steroids
CPT/HCPCS: 36415; 80053; 83735; 85025; 99284; A9270-GY

== ENCOUNTER 2023-10-03 01:44 | Observation (INO) | payer MEDICARE ==
[2023-10-03] MEDS: Lactated Ringers 1,000 ML IV ONE (02:03)
[2023-10-03 02:14] LABS: BASOPHILS ABSOLUTE AUTO 0.03 K/uL (0.00-0.20); BASOPHILS PERCENT AUTO 0.3 % (0.0-2.0); EOSINOPHILS ABSOLUTE AUTO 0.07 K/uL (0.00-0.50); EOSINOPHILS PERCENT AUTO 0.7 % (0.0-5.0); HEMATOCRIT 38.7 % (34.0-46.0); HEMOGLOBIN 13.1 g/dL (11.7-15.5); LYMPHOCYTES ABSOLUTE AUTO 0.55 K/uL (0.50-3.50); LYMPHOCYTES PERCENT AUTO 5.4 % (10.0-50.0); MEAN CORPUSCULAR HEMOGLOBIN 29.9 pg (28.2-33.3); MEAN CORPUSCULAR HGB CONC 33.9 g/dL (31.7-36.0); MEAN CORPUSCULAR VOLUME 88.4 fL (84.0-98.0); MONOCYTES ABSOLUTE AUTO 0.66 K/uL (0.00-1.00); MONOCYTES PERCENT AUTO 6.5 % (2.0-14.0); NEUTROPHILS ABSOLUTE AUTO 8.82 K/uL (1.40-7.00); NEUTROPHILS PERCENT AUTO 87.1 % (45.0-80.0); PLATELET COUNT,PLT 221 K/uL (150-350); RED BLOOD CELL COUNT 4.38 M/uL (3.77-5.09); RED CELL DISTRIBUTION WIDTH 13.4 % (11.2-14.1); WHITE BLOOD CELL COUNT,WBC 10.1 K/uL (4.0-10.2)
[2023-10-03 02:35] LABS: ALANINE AMINOTRANSFERASE,ALT 16 U/L (12-78); ALBUMIN 3.5 g/dL (3.4-5.0); ALKALINE PHOSPHATASE 90 IU/L (46-116); ASPARTATE AMNIOTRANSFERASE,AST 17 U/L (15-37); BILIRUBIN TOTAL 0.5 mg/dL (0.2-1.0); BLOOD UREA NITROGEN,BUN 12 mg/dL (7-18); CALCIUM 8.7 mg/dL (8.5-10.1); CARBON DIOXIDE,CO2 27.4 mmol/L (21.0-32.0); CHLORIDE,CL 97 mmol/L (98-107); CREATININE 0.71 mg/dL (0.51-1.17); GLUCOSE RANDOM 153 mg/dL (70-99); MAGNESIUM 1.8 mg/dL (1.8-2.4); POTASSIUM,K 3.7 mmol/L (3.5-5.1); PRO B-TYPE NATRIUR PEPT,BNPPRO 486 pg/mL (0-125); PROTEIN TOTAL,TP 7.2 g/dL (6.4-8.2); SODIUM,NA 134 mmol/L (136-145)
[2023-10-03 02:36] LABS: ANION GAP 13.3 meq/L (7-15); ESTIMATED GFR 82 mL/min (>=60)
[2023-10-03 03:17] LABS: APPEARANCE,URINE CLEAR; BILIRUBIN,URINE NEGATIVE (NEGATIVE); COLOR,URINE YELLOW; GLUCOSE,URINE NEGATIVE (NEGATIVE); KETONES,URINE NEGATIVE (NEGATIVE); NITRITE,URINE NEGATIVE (NEGATIVE); OCCULT BLOOD,URINE NEGATIVE (NEGATIVE); PROTEIN,URINE NEGATIVE (NEGATIVE); UROBILINOGEN,URINE 0.2 E.U./dL (0.2-1.0)
[2023-10-03 03:23] LABS: LEUKOCYTE ESTERASE,URINE SMALL (NEGATIVE)
[2023-10-03 03:24] LABS: BACTERIA,URINE NOT SEEN /HPF (NONE TO FEW); RBC,URINE 0-5 /HPF
[2023-10-03] MEDS ORDERED: Ondansetron 4 MG Tab.DIS PO PRN (05:42)
[2023-10-03] MEDS ORDERED: Acetaminophen 500 MG Tab PO PRN (05:49)
[2023-10-03] MEDS ORDERED: Psyllium Husk Powder Sugar Free 5.85 GM Packet PO PRN (05:49)
[2023-10-03] MEDS ORDERED: Albuterol/Ipratropium 3.0-0.5 MG/3 ML Neb Soln INH PRN (05:58)
[2023-10-03] MEDS ORDERED: Sodium Chloride 0.9% Inhalation Soln 3 ML Neb INH PRN (05:58)
[2023-10-03] MEDS: Nitrofurantoin Monohydrate/Macrocrystalline 100 MG Cap PO SCH (07:20)
[2023-10-03] MEDS: Potassium Chloride 20 MEQ Tab.ER PO SCH (07:20)
[2023-10-03] MEDS: Diltiazem IR 60 MG Tab PO SCH (07:20)
[2023-10-03] MEDS: Metoprolol Succinate 50 MG Tab.ER PO SCH (07:20)
[2023-10-03] MEDS: Losartan 50 MG Tab PO SCH (07:21)
[2023-10-03] MEDS: Sennosides 8.6 MG Tab PO SCH (07:21)
[2023-10-03] MEDS: Latanoprost 0.005% Ophth Soln 2.5 ML Bottle EYEBOTH SCH (07:22)
[2023-10-03] MEDS: Sodium Chloride 0.9% 10 ML Syringe FLUSH PRN (07:24)
[2023-10-03] MEDS ORDERED: Albuterol/Ipratropium 3.0-0.5 MG/3 ML Neb Soln INH SCH (08:00)
[2023-10-03] MEDS ORDERED: SODIUM CHLORIDE FOR INHALATION INH SCH (08:00)
[2023-10-03] MEDS ORDERED: Non-Formulary Medication 1 Each PO SCH (08:00)
[2023-10-03] MEDS ORDERED: [UNRECOGNIZED DRUG - OTHER] INH SCH (08:00)
[2023-10-03] MEDS ORDERED: Lactated Ringers 1,000 ML IV SCH (09:00)
[2023-10-03] MEDS ORDERED: Furosemide 20 MG Tab PO ONE (14:07)
[2023-10-03] MEDS: Furosemide 20 MG/2 ML VIAL IVPUSH ONE (14:24)
[2023-10-03 15:48] VITALS: BP 155/77; PULSE 86
[2023-10-03] MEDS ORDERED: Magnesium Chloride 64 MG Tab.ER PO SCH (20:00)
[2023-10-03] MEDS ORDERED: Diltiazem 120 MG Cap.CD PO SCH (20:00)
== END 2023-10-03 16:15 | disposition home or self-care (01) ==
LOC: LL.ED 01:44 → LL.MS 04:02 → UNDOADMOB 04:02 → LL.MS 10:00
PROVIDERS: ADMIT Physician Assistant; ATTEND Physician Assistant
DX: N30.00 Acute cystitis without hematuria (principal); E86.0 Dehydration; R53.1 Weakness; I11.0 Hypertensive heart disease with heart failure; I50.9 Heart failure, unspecified; E78.00 Pure hypercholesterolemia, unspecified; J44.9 Chronic obstructive pulmonary disease, unspecified; K21.9 Gastro-esophageal reflux disease without esophagitis; Z88.0 Allergy status to penicillin; Z79.899 Other long term (current) drug therapy
CPT/HCPCS: 36415; 80053; 81001; 83605; 83735; 83880; 85025; 87086; 87088; 87147; 87186; 96360; 96361; 96374; 97161-GP; 99285-25; A9270-GY; G0378; J1940; J3490; J7120

== ENCOUNTER 2023-11-14 15:04 | Emergency (ER) | payer MEDICARE ==
[2023-11-14 15:13] VITALS: PULSE 82
[2023-11-14 15:15] VITALS: BP 141/91
[2023-11-14] MEDS: Acetaminophen 500 MG Tab PO ONE (15:36)
== END 2023-11-14 16:15 | disposition home or self-care (01) ==
LOC: LL.ED 15:04
DX: S59.201A Unspecified physeal fracture of lower end of radius, right arm, initial encounter for closed fracture (principal); I11.0 Hypertensive heart disease with heart failure; I50.9 Heart failure, unspecified; J44.9 Chronic obstructive pulmonary disease, unspecified; Z79.899 Other long term (current) drug therapy; Z88.0 Allergy status to penicillin; W19.XXXA Unspecified fall, initial encounter
CPT/HCPCS: 29125; 73100; 99283; A9270

== ENCOUNTER 2024-01-15 14:15 | Emergency (ER) | payer MEDICARE ==
[2024-01-15 14:54] LABS: BASOPHILS ABSOLUTE AUTO 0.04 K/uL (0.00-0.20); BASOPHILS PERCENT AUTO 0.6 % (0.0-2.0); EOSINOPHILS ABSOLUTE AUTO 0.15 K/uL (0.00-0.50); EOSINOPHILS PERCENT AUTO 2.1 % (0.0-5.0); HEMATOCRIT 41.1 % (34.0-46.0); HEMOGLOBIN 13.4 g/dL (11.7-15.5); IMMATURE GRAN ABSOLUTE AUTO 0.02 10^3/uL (0.00-0.50); IMMATURE GRAN PERCENT AUTO 0.3 % (0.0-5.0); LYMPHOCYTES ABSOLUTE AUTO 1.81 K/uL (0.50-3.50); MEAN CORPUSCULAR HEMOGLOBIN 29.3 pg (28.2-33.3); MEAN CORPUSCULAR HGB CONC 32.6 g/dL (31.7-36.0); MEAN CORPUSCULAR VOLUME 89.9 fL (84.0-98.0); MONOCYTES PERCENT AUTO 6.9 % (2.0-14.0); NEUTROPHILS ABSOLUTE AUTO 4.73 K/uL (1.40-7.00); NEUTROPHILS PERCENT AUTO 65.1 % (45.0-80.0); PLATELET COUNT,PLT 249 K/uL (150-350); RED BLOOD CELL COUNT 4.57 M/uL (3.77-5.09); WHITE BLOOD CELL COUNT,WBC 7.3 K/uL (4.0-10.2)
[2024-01-15 15:06] LABS: BILIRUBIN,URINE NEGATIVE (NEGATIVE); COLOR,URINE YELLOW; GLUCOSE,URINE NEGATIVE (NEGATIVE); KETONES,URINE NEGATIVE (NEGATIVE); LEUKOCYTE ESTERASE,URINE TRACE (NEGATIVE); NITRITE,URINE NEGATIVE (NEGATIVE); OCCULT BLOOD,URINE NEGATIVE (NEGATIVE); PROTEIN,URINE NEGATIVE (NEGATIVE); UROBILINOGEN,URINE 0.2 E.U./dL (0.2-1.0)
[2024-01-15 15:15] LABS: ALANINE AMINOTRANSFERASE,ALT 13 U/L (12-78); ALBUMIN 3.5 g/dL (3.4-5.0); ALKALINE PHOSPHATASE 92 IU/L (46-116); ANION GAP 6.4 meq/L (7-15); ASPARTATE AMNIOTRANSFERASE,AST 11 U/L (15-37); BILIRUBIN TOTAL 0.3 mg/dL (0.2-1.0); BLOOD UREA NITROGEN,BUN 17 mg/dL (7-18); CALCIUM 9.2 mg/dL (8.5-10.1); CARBON DIOXIDE,CO2 30.6 mmol/L (21.0-32.0); CHLORIDE,CL 100 mmol/L (98-107); GLUCOSE RANDOM 101 mg/dL (70-99); MAGNESIUM 2.3 mg/dL (1.8-2.4); POTASSIUM,K 4.4 mmol/L (3.5-5.1); PROTEIN TOTAL,TP 7.3 g/dL (6.4-8.2); SODIUM,NA 137 mmol/L (136-145)
[2024-01-15 15:36] LABS: ESTIMATED GFR 71 mL/min (>=60)
[2024-01-15 16:05] LABS: APPEARANCE,URINE SLIGHTLY CLOUDY; BACTERIA,URINE NOT SEEN /HPF (NONE TO FEW); EPITHELIAL CELLS,URINE FEW /LPF; RBC,URINE 0-5 /HPF; WBC,URINE 0-5 /HPF
[2024-01-15 16:06] LABS: MUCUS,URINE OCCASIONAL /LPF (NEGATIVE)
[2024-01-15 16:18] VITALS: BP 164/89; PULSE 59
== END 2024-01-15 16:03 | disposition home or self-care (01) ==
LOC: LL.ED 14:15
DX: I11.9 Hypertensive heart disease without heart failure (principal); I50.9 Heart failure, unspecified; J44.9 Chronic obstructive pulmonary disease, unspecified; Z88.0 Allergy status to penicillin; Z79.899 Other long term (current) drug therapy
CPT/HCPCS: 36415; 80053; 81001; 83735; 85025; 87086; 99283; 99284

== ENCOUNTER 2024-12-01 14:25 | Emergency (ER) | payer MEDICARE ==
[2024-12-01 15:02] LABS: BASOPHILS ABSOLUTE AUTO 0.03 K/uL (0.00-0.20); BASOPHILS PERCENT AUTO 0.4 % (0.0-2.0); EOSINOPHILS ABSOLUTE AUTO 0.18 K/uL (0.00-0.50); EOSINOPHILS PERCENT AUTO 2.5 % (0.0-5.0); IMMATURE GRAN ABSOLUTE AUTO 0.01 10^3/uL (0.00-0.04); IMMATURE GRAN PERCENT AUTO 0.1 % (0.0-0.4); LYMPHOCYTES ABSOLUTE AUTO 1.88 K/uL (0.50-3.50); LYMPHOCYTES PERCENT AUTO 26.3 % (10.0-50.0); MONOCYTES ABSOLUTE AUTO 0.47 K/uL (0.00-1.00); MONOCYTES PERCENT AUTO 6.6 % (2.0-14.0); NEUTROPHILS ABSOLUTE AUTO 4.57 K/uL (1.40-7.00); NEUTROPHILS PERCENT AUTO 64.1 % (45.0-80.0); PLATELET COUNT,PLT 256 K/uL (150-350); RED BLOOD CELL COUNT 4.95 M/uL (3.77-5.09); RED CELL DISTRIBUTION WIDTH 13.0 % (11.2-14.1); WHITE BLOOD CELL COUNT,WBC 7.1 K/uL (4.0-10.2)
[2024-12-01 15:28] LABS: APPEARANCE,URINE CLEAR; GLUCOSE,URINE NEGATIVE (NEGATIVE); OCCULT BLOOD,URINE NEGATIVE (NEGATIVE)
[2024-12-01 15:33] LABS: INR 1.0 (0.9-1.1); PTT,PARTIAL THROMBOPLSTIN TIME 29.0 SEC (23.8-34.4)
[2024-12-01] MEDS: Sodium Chloride 0.9% 10 ML Syringe FLUSH PRN (15:37)
[2024-12-01 15:44] LABS: ALANINE AMINOTRANSFERASE,ALT 18.0 U/L (12-78); ASPARTATE AMNIOTRANSFERASE,AST 14.0 U/L (15-37); BILIRUBIN TOTAL 0.3 mg/dL (0.2-1.0); BLOOD UREA NITROGEN,BUN 13.0 mg/dL (7-18); CARBON DIOXIDE,CO2 31.1 mmol/L (21.0-32.0); CHLORIDE,CL 102.0 mmol/L (98-107); CREATININE 0.78 mg/dL (0.51-1.17); EST CRCL DRUG DOSING (CG) 35.81 mL/min; GLUCOSE RANDOM 99.0 mg/dL (70-99); POTASSIUM,K 4.2 mmol/L (3.5-5.1); PROTEIN TOTAL,TP 7.5 g/dL (6.4-8.2); SODIUM,NA 140.0 mmol/L (136-145); TSH ULTRASENSITIVE 3.547 mIU/mL (0.358-3.740)
[2024-12-01 15:48] LABS: ESTIMATED GFR 73.0 mL/min (>=60)
[2024-12-01 15:52] LABS: SQUAMOUS EPITHELIAL CELLS,UR OCCASIONAL /HPF (NOT SEEN)
[2024-12-01 15:59] VITALS: BP 161/82; PULSE 49
[2024-12-01] MEDS: Take Home: Nitrofurantoin Monohydrate/Macrocrystalline 100 MG, 6 Cap Pack PO ONE (16:08)
== END 2024-12-01 16:20 | disposition home or self-care (01) ==
LOC: LL.ED 14:25
DX: I16.9 Hypertensive crisis, unspecified (principal); I10 Essential (primary) hypertension; Z88.0 Allergy status to penicillin; Z98.49 Cataract extraction status, unspecified eye; I11.0 Hypertensive heart disease with heart failure; I50.9 Heart failure, unspecified; Z79.899 Other long term (current) drug therapy; J44.9 Chronic obstructive pulmonary disease, unspecified; G89.29 Other chronic pain
CPT/HCPCS: 36415; 70450; 80053; 81001; 83735; 84443; 84484; 85025; 85610; 85730; 86140; 93005; 96374; 96376; 99284-25; A9270-GY; J1920